=== PATIENT | male | born 1955 | race Caucasian/White ===

== ENCOUNTER 2018-09-13 17:22 | Inpatient (IN) | payer OTHER, SELFPAY ==
[2018-09-13] VITALS (12 sets, daily range): BP systolic 93–134; BP diastolic 46–84; PULSE 76–92; RESP 15–18; TEMP 36.5–37.1; O2SAT 93–100; BMI 34.8
--- NOTE | 2018-09-13 18:04 | EKG12_ITS ---
Test Reason : NAUSEA Blood Pressure : / mmHG Vent. Rate : 087 BPM Atrial Rate : 087 BPM P-R Int : 000 ms QRS Dur : 076 ms QT Int : 360 ms P-R-T Axes : 000 058 -31 degrees QTc Int : 433 ms Accelerated Junctional rhythm Nonspecific ST and T wave abnormality Abnormal ECG Confirmed by INGRID LONG, BRITTANEY ([id number]), newspaper editor managing BETH LUCIANO ([id number]) on 09/17/2018 1:34:13 PM Referred By: VASILIY Confirmed By:BRITTANEY QUINTERO MD
[2018-09-13] MEDS: 0.9% Normal Saline 1,000 ML 1000 ML IV (18:09)
--- NOTE | 2018-09-13 18:12 | RAD_ITS ---
STUDY: X-RAY CHEST REASON FOR EXAM: Male, 63 years old. Nausea and vomiting TECHNIQUE: AP COMPARISON: None. FINDINGS: Parenchymal opacity in the left infrahilar lung partially obscures the left heart border. Right hemidiaphragm is elevated. There is no demonstrated pleural abnormality. Normal size heart. Normal mediastinum and ellie. Normal visualized pulmonary arteries. There is atherosclerotic tortuosity of the aortic arch and descending thoracic aorta. There is fusion hardware of the thoracolumbar spine. Normal visualized ribs, clavicles, and shoulders. There is no demonstrated abnormality of the visualized soft tissue structures of the upper abdomen. RAD/Chest 1 View (Portable) IMPRESSION: 1. Left perihilar opacity may represent early pneumonia. Electronically Signed: Claudio Guzmán MD at 19:01 EST , Service support ,
[2018-09-13 18:29] LABS: Absolute Lymphocyte Count 2.89 X10^3/ul (0.83-4.51); Absolute Neutrophil Count 0.4 X10^3/uL (2.0-7.7); Basophil# 0.01 X10^3/uL; Basophil% 0.3 % (0-1); Lymphocyte # 2.89 X10^3/ul (4.0); Lymphocyte % 86.8 % (19-41); Mean Corp Hgb Conc 32.9 g/gl (32-36); Mean Corpuscular Hgb 36.8 pg (27.0-32.0); Mean Platelet Vol. 9.7 fl (6.2-12.0); Monocyte# 0.01 X10^3/uL; Monocyte% 0.3 % (0-10); Neutrophil # 0.41 X10^3/uL (2.7-7.7); Neutrophil % 12.3 % (47-70); Platelet Count 48 K/mm3 (150-450); RBC Distribution Width CV 16.3 % (11.6-14.6); RBC Distribution Width SD 65.6 fl (35.1-43.9); Red Blood Count 1.25 M/mm3 (4.6-6.2); White Blood Count 3.3 K/mm3 (4.4-11.0)
[2018-09-13 18:31] LABS: Differential Indicated SCAN CRITERIA MET; Hemoglobin 4.6 g/dl (13.0-16.5); POSITIVE COUNT YES; POSITIVE DIFFERENTIAL YES; POSITIVE MORPHOLOGY YES
--- NOTE | 2018-09-13 18:32 | ED.RN ---
LAB RESULTED PLATELETS 48, HGB 4.6, PHYSICIAN NOTIFIED
[2018-09-13 18:38] LABS: Anion Gap 9 (5-15); BUN 27 mg/dL (7-18); BUN/Creat Ratio 19.4 RATIO (10-20); Calcium,Total 8.3 mg/dL (8.5-10.1); Chloride 101 mmol/L (98-107); Creatinine, Serum 1.39 mg/dL (0.70-1.30); EST Glomerular Filtration Rate 55 mL/min (>60); Est Glom Filt Rate - Afr Amer 66 mL/min (>60); Estimated Creatinine Clearance 55.44 ml/min; Glucose 164 mg/dL (74-106); Potassium 4.2 mmol/L (3.5-5.1); Sodium Level 137 mmol/L (136-145)
[2018-09-13 19:14] LABS: Anisocytosis 2+; Atypical Lymphocyte 1+ %; Macrocytosis 2+; Reactive Lymphocyte 1+
[2018-09-13 19:15] LABS: Polychromasia 1+
[2018-09-13 19:16] LABS: Differential Comment SCANNED
[2018-09-13 19:23] LABS: International Normalized Ratio 1.3; Prothrombin Time (Protime)PT. 16.1 SECONDS (11.7-14.9)
[2018-09-13 19:24] LABS: Partial Thromboplast Time 31.4 Seconds (24.1-36.2)
--- NOTE | 2018-09-13 21:38 | CT_ITS ---
STUDY: CT CHEST WITH CONTRAST REASON FOR EXAM: Male, 63 years old. Shortness of breath. Abnormal chest radiograph. RADIATION DOSAGE (If Supplied By Facility): CTDIvol = ( 15.02 ) mGy, DLP = ( 662.01 ) mGycm TECHNIQUE: Transaxial imaging was performed following intravenous administration of 100ml ml of Isovue 300 contrast material. Multiplanar coronal and sagittal images were reformatted. Individualized dose optimization techniques were used for this CT. COMPARISON: None. FINDINGS: There is elevation of the right hemidiaphragm. There is consolidation within the right lower lobe. There are scattered groundglass opacities. Within the right upper lobe there is a 4.6 mm partially groundglass nodule. There are calcifications of the coronary arteries. Normal mediastinum. Normal hilar regions. Normal enhanced pulmonary arteries. Normal aorta arch and descending thoracic aorta. There are pedicle screws within the lower thoracic spine. The limited images of the upper abdomen demonstrate a diffusely low in attenuation liver. CT/Chest WITH Contrast IMPRESSION: Right lower lobe consolidation likely secondary to underlying atelectasis and possible pneumonia. Bilateral groundglass opacities, a nonspecific finding may be secondary to underlying edema. Atherosclerosis. Fatty infiltration of the liver. Electronically Signed: Laura Georges MD at 23:31 EST Tel , Service support ,
--- NOTE | 2018-09-13 23:42 | PCM.HP.STD ---
History of Present Illness Date of Admission: 09/14/18 Chief Complaint: shortness of breath, generalised fatigue The patient is a 63 year old M with a PMH of colon polyps who was admitted on 09/13/18 with a complaint of shortness of breath and weakness. Symptoms have been going on for about a week and was not improving so he decided coming to the ED as he could not even go to work today. He denied any fever or chills and only complained of occasional cough which is nonproductive. He denied any chest pain, palpitations, dizziness, abdominal pain, diarrhea or vomiting. Of note, patient admits that he is at a 23 pound weight loss over the past 3 weeks as he says he used to weigh 265 pounds and today his weight was checked and was 242 pounds. He does also feel like he has lost some weight. He denies having any melena stools, but does admit to difficulty with urination. Patient states he had a polyp in his colon about 20 years ago and had a colonoscopy done and was removed. As far as he could tell he was benign. He had this 3 colonoscopy subsequently the last one being about 2 years ago which was performed in [place] and was negative. He has a family history of colon cancer in his mother who was diagnosed when she was 86. 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 Of note, patient states he had routine blood work done about 6 months ago which showed deranged liver enzymes. He was seen by liver specialist [facility] and states a biopsy was done which showed nonalcoholic fatty liver disease. In the ED, vitals were stable. Chemistry was significant for creatinine of 1.39, calcium of 8.3 and troponin of 0.056 with no baseline available. CBC showed white cell count of 3.3 hemoglobin of 4.6 as well as platelet count of 48 with no baseline available. Chest x-ray done showed left perihilar opacity which may represent early pneumonia. Chest CT done showed right lower lobe consolidation likely secondary to underlying atelectasis and possible pneumonia and bilateral groundglass opacities which may be due to underlying pneumonia. Within the right upper lobe there was a 4.6 mm partially groundglass nodule. Per earlier discussions with ED doctor, I suggested that patient should be transferred to a tertiary center o/a of his profound anemia, and pancytopenia. Per ED doctor, [facility] refused to accept patient. No attempts made per my knowledge by ED to contact any other facilities for transfer. Patient also preferred to stay in [facility]. He is been admitted to be managed for pancytopenia with associated weight loss to rule out malignancy. [] Past Medical History Allergies morphine Adverse Reaction (Verified 09/13/18 17:24) Other Home Medications: Ambulatory Orders Medication Instructions Recorded Allopurinol 300 mg PO DAILY 09/13/18 Metoprolol Tartrate [Lopressor 25 mg PO DAILY 09/13/18 (beta glen)] Surgical History: - - back surgery and knee surgery Psychiatric History: No pertinent psych hx Lives: Spouse/ Significant Other Smoking Status: Former smoker - quit 40 years ago Alcohol: Occasional Drugs: None - *Family History Maternal History Items: Cancer - colon cancer in mother at age 86 Paternal History Items: No pertinent history Review of Systems Constitutional: Reports: Weight Change - weight loss. Denies: Chills, Fever Eyes: Reports: Blurred vision HEENT: Denies: Head Aches, Sinus Congestion, Sinus Drainage Cardiovascular: Denies: Chest Pain, Palpitations Respiratory: Denies: Cough, Shortness of breath at rest, Sputum production Gastrointestinal: Denies: Abdominal Pain, Nausea, Vomiting Genitourinary: Reports: - - difficulty with urination. Denies: Dysuria Musculoskeletal: Denies: Joint Pain, Joint Tenderness Skin: Denies: Rash, Wounds Neurological: Denies: Numbness, Tingling, Focal weakness Psychiatric: Denies: Anxiety, Depression, Homicidal Ideations, Suicidal Ideations Hematologic/ Lymphatic: Denies: Easy Bruising, Easy Bleeding VTE Information - Inpt Only VTE Present on Admission: No VTE Mechan Device Prophylaxis: SCD's VTE Pharm Prophylaxis ordered?: Yes Reason prophylaxis not ordered:: Medical Contraindication - thrombocytopenia - Physical Exam General: Alert, Oriented x3, Cooperative, No apparent distress HEENT: Atraumatic, PERRLA, EOMI, Normocephalic Oral: Moist Mucosa Neck: Supple, No JVD, Negative Carotid Bruits Lungs: Clear to auscultation, - - decreased breath sounds bibasally. coarse crackles in right lower lung field Cardiovascular: Regular rate, Regular Rhythm, Normal S1, Normal S2, No murmurs Abdomen: Bowel Sounds Present, Soft, Non Tender Extremities: No clubbing, No cyanosis, No edema, Capillary Refill Less than 3 Seconds Skin: No rashes, No breakdown Musculoskeletal: No Tenderness to Palpation of Joints or Extremities Lymphatic: No Cervical, Supraclavicular, or Inguinal Adenopathy Neurological: Cranial nerves II-XII grossly intact, Neuro grossly intact, Motor Exam 5/5 strength throughout Psych/Mental Status: Normal Affect, Appropriate, Alert and oriented to time, place, person, mood and affect Vital Signs Temp Pulse Resp BP Pulse Ox 98.1 F 80 15 119/79 99 09/13/18 23:09 09/13/18 23:09 09/13/18 23:09 09/13/18 23:09 09/13/18 23:09 Oxygen Flow Rate (L/min) 2 Oxygen Delivery Method Nasal Cannula Weight: 242 lb 12.8 oz Body Mass Index (BMI) 34.8 Intake and Output for Last 24 Hours 09/11/18 09/12/18 09/13/18 23:59 23:59 23:59 Intake Total 800 / 800 Balance 800 / 800 Microbiology Past 72 Hours 09/13/18 19:00 Stool Occult Blood (ADA) - Final Stool Laboratory Tests Past 24 Hrs 09/13/18 09/13/18 09/13/18 18:12 18:12 18:55 WBC 3.3 L RBC 1.25 L Hgb 4.6 L* Hct 14.0 L MCV 112.0 H MCH 36.8 H MCHC 32.9 RDW 16.3 H RDW Differential 65.6 H Plt Count 48 L* MPV 9.7 Immature Gran % (Auto) 0.300 Neut % (Auto) 12.3 L Lymph % (Auto) 86.8 H [place] % (Auto) 0.3 Eos % (Auto) 0.0 Baso % (Auto) 0.3 Absolute Neuts (auto) 0.4 L Absolute Lymphs (auto) 2.89 Total Counted Not Reportable Differential Comment SCANNED Diff Path Review May foll Atypical Lymphocytes 1+ Reactive Lymphocytes 1+ Polychromasia 1+ Anisocytosis 2+ Macrocytosis 2+ PT 16.1 H INR 1.3 APTT 31.4 Sodium 137 Potassium 4.2 Chloride 101 Carbon Dioxide 27.0 Anion Gap 9 BUN 27 H Creatinine 1.39 H Estim Creat Clear Calc 55.44 Est GFR (MDRD) Af Amer 66 Est GFR (MDRD) Non-Af 55 L BUN/Creatinine Ratio 19.4 Glucose 164 H Calcium 8.3 L Troponin I 0.056 H Blood Type Antibody Screen Crossmatch 09/13/18 18:55 WBC RBC Hgb Hct MCV MCH MCHC RDW RDW Differential Plt Count MPV Immature Gran % (Auto) Neut % (Auto) Lymph % (Auto) [place] % (Auto) Eos % (Auto) Baso % (Auto) Absolute Neuts (auto) Absolute Lymphs (auto) Total Counted Differential Comment Diff Path Review Atypical Lymphocytes Reactive Lymphocytes Polychromasia Anisocytosis Macrocytosis PT INR APTT Sodium Potassium Chloride Carbon Dioxide Anion Gap BUN Creatinine Estim Creat Clear Calc Est GFR (MDRD) Af Amer Est GFR (MDRD) Non-Af BUN/Creatinine Ratio Glucose Calcium Troponin I Blood Type A NEGATIVE Antibody Screen NEGATIVE Crossmatch See Detail Diagnostic Data Chest X-Ray 09/13/18 18:12 IMPRESSION: 1. Left perihilar opacity may represent early pneumonia. Electronically Signed: Claudio Guzmán MD at 19:01 EST , Service support , Chest CT 09/13/18 21:38 IMPRESSION: Right lower lobe consolidation likely secondary to underlying atelectasis and possible pneumonia. Bilateral groundglass opacities, a nonspecific finding may be secondary to underlying edema. Atherosclerosis. Fatty infiltration of the liver. Electronically Signed: Laura Georges MD at 23:31 EST Tel , Service support , Assessment/Plan 63 y/o admitted with a complaint of generalised fatigue 1. Pancytopenia of unclear etiology due to malignancy vs myelodysplastic disease vs liver disease Hemoglobin was 4.6 and white cell count is 3.3 with platelets of 48. Is a microcytic normochromic anemia. baseline Hb from [facility] was 13.8, from 02/26/18; platelets was 129 and wbc was 2.7. therefore leucopenia nd thrombocytopenia are chronic. thrombocytopenia has worsened, and anemia is relatively new INR was 1.3 Patient currently being transfused 2 units of packed red blood cells in the ED at time of review. check liver enzymes and PSA consult hematology/oncology check fecal occult blood and consult general surgery in light of patient's previous history of polyps and history of colon cancer in mother no records of previous colonoscopy could be accessed in [facility]. will request medical records for colonoscopy will check iron panel. Iron panel done in 12/27 showed elevated ferritin 2. CHING was diagnosed per liver biopsy last year; per [facility] [place] records, was diagnosed with hepatic fibrosis via fibroscan liver enzymes from February 2018 wre AST/ALT- 61/68 and total bilirubin of 1.5 (high), Direct bilirubin of 0.35(high) and indirect dorian of 1.2 will check liver enzymes 3. Thrombocytopenia: as under 1. Will hold off on transfusing platelets now pending hematology evaluation 3. ?TAMANNA: Cr is 1.39. Baseline not known. Will hydrate with IVF and monitor 4. DVT prophylaxis: SCDs Code Visit Inpatient E&M: 41226 Init Hosp L3
--- NOTE | 2018-09-13 23:44 | ED.VISSUMM ---
- ER Visit Summary Date of Service: 09/13/18 Chief Complaint: Fatigue History of Present Illness: The patient is a 63 M with generalized fatigue that has been increasing over several days. He thinks he might be dehydrated. He has been nauseated and vomiting. He has decreased oral intake and increasing sleep. He said he never felt this way before. He denies any abdominal pain or diarrhea. Denies fevers. Denies chest pain. He does have mild shortness of breath at times. No cough or sputum. He reports a history of hypertension as well as bilateral knee surgery and back surgery. Non-smoker. Physical Examination: Afebrile and vital signs unremarkable. 93% on room air. Alert and oriented. No acute distress. He is sitting, moving, speaking comfortably. Skin is pale and dry. Heart regular rate and rhythm. Lungs clear. Abdomen soft and nontender. Test Results: EKG showed what appears to be a junctional rhythm at a rate of 87. There are some lateral ST wave depressions. No elevations. White count 3.3, hemoglobin 4.6, platelets 48. Subsequent Hemoccult testing was negative. Coags were unremarkable. Glucose 164, BUN 27, creatinine 1.39. Troponin 0 0.056. Initial chest x-ray was concerning for left perihilar opacity, possibly pneumonia. Emergency Department Course and Treatment: Patient presents with nausea and vomiting. He is also pale and fatigued. His EKG showed nonspecific changes. He was kept on a monitor. His troponin was indeterminate. He was denying chest pain. His CBC showed pancytopenia. I did check a fecal occult test and it was negative. Coags were normal. Type and cross was done and I ordered 2 units of packed red cells. He was not having any bleeding historically or on exam. He has no history of anemia or pancytopenia. Denies any history of cancer or bone marrow disease. Metabolic panel unremarkable. Chest x-ray was read as possible pneumonia, but he had no cough, fevers, or sputum. I called the hospitalist to admit for further inpatient care. The hospitalist felt that the patient would be better served at a tertiary care center as we did not have a source for possible malignancy and he may need surgery or other procedures not available here. I spoke with the patient and subsequently called [facility]. I spoke with Dr. Aldrich. He did not feel that the transfer was safe or appropriate. He felt that the patient will be better suited for a medical evaluation and further stabilization here and would not be a surgical candidate at this point anyway. He declined the transfer. I did contact our hospitalist here. I had subsequently ordered a chest CT to see if the perihilar opacity was malignancy. This showed a right lower lobe consolidation likely secondary to atelectasis or possible pneumonia. Again, I do not believe the patient has pneumonia. He has no cough, fevers, sputum. The CT also showed bilateral groundglass opacities, atherosclerosis, and fatty infiltration of the liver. Upon further reevaluation, the patient is stable. Denies chest pain. Denies shortness of breath. Denies any new or worsening symptoms. He would still like to stay at this facility for further care. Hospitalist will evaluate. Treatment Plan: As above Disposition: Admission Impression: 1. Pancytopenia 2. Elevated troponin This note was generated with [employer] dictation software. It may contain incorrect words, spelling, and punctuation that were not noted in review of the chart prior to signing ED Disposition - Plan for ED Patient: Referrals: Shanti Hanson [Primary Care Provider] -
[2018-09-14] VITALS (12 sets, daily range): BP systolic 100–129; BP diastolic 52–74; PULSE 76–105; RESP 15–16; TEMP 36.7–37.2; O2SAT 96–100; BMI 35.3
[2018-09-14 02:25] LABS: AST(SGOT) 28 U/L (15-37); Alanine Aminotransfer ALT/SGPT 24 U/L (16-61); Albumin, Serum 2.9 g/dL (3.2-5.0); Alkaline Phosphatase 72 U/L (45-117); Globulin 4.1 g/dL (2.2-4.2)
[2018-09-14 02:36] LABS: Bilirubin, Direct 0.64 mg/dL (0.00-0.30)
[2018-09-14 04:14] LABS: Ferritin 1385 ng/mL (26-388); Iron 257 ug/dL (65-175); Iron Binding Capacity,Total 275 ug/dL (250-450); PERCENT IRON SATURATION 93.5 % (15.0-55.0)
[2018-09-14 04:53] LABS: ALB/GLOB Ratio 0.7 RATIO (0.9-2.4); AST(SGOT) 26 U/L (15-37); Alanine Aminotransfer ALT/SGPT 23 U/L (16-61); Albumin, Serum 2.9 g/dL (3.2-5.0); Alkaline Phosphatase 70 U/L (45-117); Anion Gap 10 (5-15); BUN 24 mg/dL (7-18); BUN/Creat Ratio 22.6 RATIO (10-20); Calcium,Total 7.8 mg/dL (8.5-10.1); Chloride 104 mmol/L (98-107); Creatinine, Serum 1.06 mg/dL (0.70-1.30); EST Glomerular Filtration Rate 75 mL/min (>60); Est Glom Filt Rate - Afr Amer 90 mL/min (>60); Estimated Creatinine Clearance 72.69 ml/min; Glucose 120 mg/dL (74-106); Potassium 4.3 mmol/L (3.5-5.1); Protein, Total 6.9 g/dL (6.4-8.2); Sodium Level 139 mmol/L (136-145)
[2018-09-14 06:42] LABS: Basophil# 0.02 X10^3/uL; Hematocrit 16.2 % (40-54); Mean Corp Hgb Conc 34.6 g/gl (32-36); Mean Corpuscular Hgb 36.8 pg (27.0-32.0); Mean Corpuscular Volume 106.6 fL (80-94); Mean Platelet Vol. 10.4 fl (6.2-12.0); Monocyte# 1.13 X10^3/uL; Red Blood Count 1.52 M/mm3 (4.6-6.2)
[2018-09-14 06:48] LABS: Hemoglobin 5.6 g/dl (13.0-16.5)
[2018-09-14 06:49] LABS: Differential Indicated SCAN CRITERIA MET; POSITIVE COUNT YES; POSITIVE DIFFERENTIAL YES; POSITIVE MORPHOLOGY YES; Platelet Count 42 K/mm3 (150-450)
[2018-09-14 07:37] LABS: Scan Smear per Review Criteria MANUAL DIFF
--- NOTE | 2018-09-14 08:38 | PCM.CONS.GEN ---
Reason for Consult Date of Consultation: 09/14/18 History of Present Illness: The patient is a 63 year old M presented to the ER due to dehydration, fatigue, decreased appetite. Patient states he has not eaten any food since he has not felt hungry. Patient states that on last Saturday he did vomit once. Otherwise he denies any nausea or vomiting or abdominal pain. He states that since July he has had decreased appetite, fatigue and also a weight loss of 23 pounds. Patient's last bowel movement with Brown, denies any bright red blood or tarry stools. Patient's last colonoscopy was 2 years ago done in [place] was negative per the patient. He has had a colonoscopy every 5 years. His mother was diagnosed with colon cancer 2 years ago at age 86. Patient was also diagnosed with fatty liver last summer. Patient had a biopsy done and actually showed fatty liver per the patient, patient only had occasional alcohol intake may be a beer every couple weeks but has not had any alcohol for several months. And no history of any heavy use. Patient denies any reflux symptoms. Currently he does state that he feels a little bit hungry. Patient's labs did show a hemoglobin of 4.6 on admit along with platelets of 42, labs from this morning have a hemoglobin of 5.6 after getting 2 units of packed red blood cells along with the continued thrombocytopenia, patient also has blast cells on morning differential. Consulted for possible endoscopy due to anemia. Heme/oncology was also consulted. Past Medical History Allergies morphine Adverse Reaction (Verified 09/13/18 17:24) Other Home Medications: Ambulatory Orders Medication Instructions Recorded Allopurinol 300 mg PO DAILY 09/13/18 Metoprolol Tartrate [Lopressor 25 mg PO DAILY 09/13/18 (beta glen)] Surgical History: cholecystectomy, total knee arthroplasty, - - back surgery and lateral knee surgery Psychiatric History: No pertinent psych hx Lives: Spouse/ Significant Other Smoking Status: Former smoker - quit 40 years ago Alcohol: Occasional - Denies any for the past few weeks, previous history was only occasional maybe 1 beer every few weeks Drugs: None - *Family History Maternal History Items: Cancer - colon cancer in mother at age 86 Paternal History Items: No pertinent history Review of Systems Constitutional: Denies: Fever HEENT: Denies: Difficulty Swallowing Cardiovascular: Denies: Chest Pain Respiratory: Reports: Shortness of Breath - Initially on admit Gastrointestinal: Denies: Abdominal Pain, Hematochezia, Nausea, Melena, Vomiting Genitourinary: Denies: Dysuria Skin: Denies: Jaundice Psychiatric: Denies: Anxiety, Depression Hematologic/ Lymphatic: Denies: Easy Bruising, Easy Bleeding - Physical Exam General: Alert, Oriented x3, Cooperative, No apparent distress HEENT: Atraumatic Lungs: Normal air movement Cardiovascular: Regular rate Abdomen: Soft, Non Tender - , No peritoneal signs, Non-Distended Extremities: No clubbing, No cyanosis, No edema Neurological: Cranial nerves II-XII grossly intact Psych/Mental Status: Normal Affect Vital Signs Temp Pulse Resp BP Pulse Ox 99.0 F 84 16 121/65 H 96 09/14/18 08:15 09/14/18 08:15 09/14/18 08:15 09/14/18 08:15 09/14/18 08:15 Oxygen Flow Rate (L/min) 2 Oxygen Delivery Method Room Air Weight: 246 lb 4.101 oz Body Mass Index (BMI) 35.3 Intake and Output for Last 24 Hours 09/12/18 09/13/18 09/14/18 23:59 23:59 23:59 Intake Total 800 / 800 668 / 668 Output Total 150 / 150 Balance 800 / 800 518 / 518 Microbiology Past 72 Hours 09/13/18 19:00 Stool Occult Blood (ADA) - Final Stool Laboratory Tests Past 24 Hrs 09/13/18 09/13/18 09/13/18 18:12 18:12 18:12 WBC 3.3 L Corrected WBC RBC 1.25 L Hgb 4.6 L* Hct 14.0 L MCV 112.0 H MCH 36.8 H MCHC 32.9 RDW 16.3 H RDW Differential 65.6 H Plt Count 48 L* MPV 9.7 Immature Gran % (Auto) 0.300 Neut % (Auto) 12.3 L Lymph % (Auto) 86.8 H [place] % (Auto) 0.3 Eos % (Auto) 0.0 Baso % (Auto) 0.3 Absolute Neuts (auto) 0.4 L Absolute Lymphs (auto) 2.89 Total Counted Not Reportable Neutrophils % (Manual) Band Neutrophils % Lymphocytes % (Manual) Monocytes % (Manual) Eosinophils % (Manual) Basophils % (Manual) Metamyelocytes % Myelocytes % Promyelocytes % Blast Cells % Plasma Cell % (Manual) Other Cells % Nucleated RBCs/100 WBC Differential Comment SCANNED Diff Path Review May foll Hypersegmented Neuts Atypical Lymphocytes 1+ Reactive Lymphocytes 1+ Smudge Cells Toxic Granulation Dohle Bodies Iesha Rods Platelet Estimate Plt Morphology Comment RBC Morphology Polychromasia 1+ Hypochromasia Poikilocytosis Basophilic Stippling Anisocytosis 2+ Microcytosis Macrocytosis 2+ Spherocytes Sickle Cells Target Cells Tear Drop Cells Ovalocytes Stomatocytes Herrera-[place] Bodies Charli Cells Bite Cells Acanthocytes (Spur) Rouleaux Schistocytes PT INR APTT Sodium 137 Potassium 4.2 Chloride 101 Carbon Dioxide 27.0 Anion Gap 9 BUN 27 H Creatinine 1.39 H Estim Creat Clear Calc 55.44 Est GFR (MDRD) Af Amer 66 Est GFR (MDRD) Non-Af 55 L BUN/Creatinine Ratio 19.4 Glucose 164 H Calcium 8.3 L Iron 257 H TIBC 275 Iron Saturation 93.5 H Ferritin 1385 H Total Bilirubin Direct Bilirubin AST ALT Alkaline Phosphatase Troponin I 0.056 H Total Protein Albumin Globulin Albumin/Globulin Ratio Blood Type Antibody Screen Crossmatch 09/13/18 09/13/18 09/14/18 18:55 18:55 01:16 WBC Corrected WBC RBC Hgb Hct MCV MCH MCHC RDW RDW Differential Plt Count MPV Immature Gran % (Auto) Neut % (Auto) Lymph % (Auto) [place] % (Auto) Eos % (Auto) Baso % (Auto) Absolute Neuts (auto) Absolute Lymphs (auto) Total Counted Neutrophils % (Manual) Band Neutrophils % Lymphocytes % (Manual) Monocytes % (Manual) Eosinophils % (Manual) Basophils % (Manual) Metamyelocytes % Myelocytes % Promyelocytes % Blast Cells % Plasma Cell % (Manual) Other Cells % Nucleated RBCs/100 WBC Differential Comment Diff Path Review Hypersegmented Neuts Atypical Lymphocytes Reactive Lymphocytes Smudge Cells Toxic Granulation Dohle Bodies Iesha Rods Platelet Estimate Plt Morphology Comment RBC Morphology Polychromasia Hypochromasia Poikilocytosis Basophilic Stippling Anisocytosis Microcytosis Macrocytosis Spherocytes Sickle Cells Target Cells Tear Drop Cells Ovalocytes Stomatocytes Herrera[place] Bodies [place] Cells Bite Cells Acanthocytes (Spur) Rouleaux Schistocytes PT 16.1 H INR 1.3 APTT 31.4 Sodium Potassium Chloride Carbon Dioxide Anion Gap BUN Creatinine Estim Creat Clear Calc Est GFR (MDRD) Af Amer Est GFR (MDRD) Non-Af BUN/Creatinine Ratio Glucose Calcium Iron TIBC Iron Saturation Ferritin Total Bilirubin 1.80 H Direct Bilirubin 0.64 H AST 28 ALT 24 Alkaline Phosphatase 72 Troponin I Total Protein 7.0 Albumin 2.9 L Globulin 4.1 Albumin/Globulin Ratio Blood Type A NEGATIVE Antibody Screen NEGATIVE Crossmatch See Detail 09/14/18 09/14/18 09/14/18 01:16 04:14 04:14 WBC Cancelled Corrected WBC Cancelled RBC Cancelled Hgb Cancelled Hct Cancelled MCV Cancelled MCH Cancelled MCHC Cancelled RDW Cancelled RDW Differential Cancelled Plt Count Cancelled MPV Cancelled Immature Gran % (Auto) Cancelled Neut % (Auto) Cancelled Lymph % (Auto) Cancelled [place] % (Auto) Cancelled Eos % (Auto) Cancelled Baso % (Auto) Cancelled Absolute Neuts (auto) Cancelled Absolute Lymphs (auto) Cancelled Total Counted Cancelled Neutrophils % (Manual) Cancelled Band Neutrophils % Cancelled Lymphocytes % (Manual) Cancelled Monocytes % (Manual) Cancelled Eosinophils % (Manual) Cancelled Basophils % (Manual) Cancelled Metamyelocytes % Cancelled Myelocytes % Cancelled Promyelocytes % Cancelled Blast Cells % Cancelled Plasma Cell % (Manual) Cancelled Other Cells % Cancelled Nucleated RBCs/100 WBC Cancelled Differential Comment Cancelled Diff Path Review Cancelled Hypersegmented Neuts Cancelled Atypical Lymphocytes Cancelled Reactive Lymphocytes Cancelled Smudge Cells Cancelled Toxic Granulation Cancelled Dohle Bodies Cancelled Iesha Rods Cancelled Platelet Estimate Cancelled Plt Morphology Comment Cancelled RBC Morphology Cancelled Polychromasia Cancelled Hypochromasia Cancelled Poikilocytosis Cancelled Basophilic Stippling Cancelled Anisocytosis Cancelled Microcytosis Cancelled Macrocytosis Cancelled Spherocytes Cancelled Sickle Cells Cancelled Target Cells Cancelled Tear Drop Cells Cancelled Ovalocytes Cancelled Stomatocytes Cancelled [place]rera[place] Bodies Cancelled [place] Cells Cancelled Bite Cells Cancelled Acanthocytes (Spur) Cancelled Rouleaux Cancelled Schistocytes Cancelled PT INR APTT Sodium 139 Potassium 4.3 Chloride 104 Carbon Dioxide 25.0 Anion Gap 10 BUN 24 H Creatinine 1.06 Estim Creat Clear Calc 72.69 Est GFR (MDRD) Af Amer 90 Est GFR (MDRD) Non-Af 75 BUN/Creatinine Ratio 22.6 H Glucose 120 H Calcium 7.8 L Iron TIBC Iron Saturation Ferritin Total Bilirubin 2.10 H Direct Bilirubin AST 26 ALT 23 Alkaline Phosphatase 70 Troponin I 0.043 0.032 Total Protein 6.9 Albumin 2.9 L Globulin 4.0 Albumin/Globulin Ratio 0.7 L Blood Type Antibody Screen Crossmatch 09/14/18 05:50 WBC 3.0 L Corrected WBC RBC 1.52 L Hgb 5.6 L* Hct 16.2 L MCV 106.6 H MCH 36.8 H MCHC 34.6 RDW Not Reportable RDW Differential Not Reportable Plt Count 42 L* MPV 10.4 Immature Gran % (Auto) [employer] Neut % (Auto) [employer]ER Lymph % (Auto) [employer]ER [place] % (Auto) [employer]ER Eos % (Auto) [employer] WORKER Baso % (Auto) [employer]ER Absolute Neuts (auto) 0.2 L Absolute Lymphs (auto) 1.10 Total Counted 25 Neutrophils % (Manual) 4 L Band Neutrophils % 4 Lymphocytes % (Manual) 36 Monocytes % (Manual) 4 Eosinophils % (Manual) Basophils % (Manual) Metamyelocytes % 40 H Myelocytes % Promyelocytes % Blast Cells % 12 H* Plasma Cell % (Manual) Other Cells % Nucleated RBCs/100 WBC Differential Comment Diff Path Review May foll Hypersegmented Neuts Atypical Lymphocytes Reactive Lymphocytes Smudge Cells Toxic Granulation Dohle Bodies Iesha Rods Platelet Estimate Plt Morphology Comment RBC Morphology Polychromasia Hypochromasia Poikilocytosis Basophilic Stippling Anisocytosis Microcytosis Macrocytosis Spherocytes Sickle Cells Target Cells Tear Drop Cells Ovalocytes Stomatocytes Herrera-[place] Bodies [place] Cells Bite Cells Acanthocytes (Spur) Rouleaux Schistocytes PT INR APTT Sodium Potassium Chloride Carbon Dioxide Anion Gap BUN Creatinine Estim Creat Clear Calc Est GFR (MDRD) Af Amer Est GFR (MDRD) Non-Af BUN/Creatinine Ratio Glucose Calcium Iron TIBC Iron Saturation Ferritin Total Bilirubin Direct Bilirubin AST ALT Alkaline Phosphatase Troponin I Total Protein Albumin Globulin Albumin/Globulin Ratio Blood Type Antibody Screen Crossmatch Assessment/Plan 63-year-old male with pancytopenia, history of colon polyps last colonoscopy 2 years ago negative 1. Patient's recent colonoscopy was 2 years ago and he states he has a colonoscopy every 5 years. Per patient colonoscopy was -2 years ago obtain records. Patient denies any bright red blood or black tarry stools. Patient's fecal occult blood test was also negative. Discussed with patient that I do not think endoscopy is warranted currently as patient's pancytopenia likely has another etiology than just from a GI bleed and patient denies any blood per rectum and the fecal occult was negative. Patient also denies any symptoms of reflux or abdominal pain or nausea or vomiting. 2. Oncology/hematology consulted, await recommendations. Discussed with Dr. Pascula and she was agreeable to no endoscopies at this time and will let me know if anything changes. Richa Flanagan M.D. Pager: [phone] [facility] [address] [place] [address], [facility], [address] [place] [address] Office: [phone] Code Visit Inpatient E&M: 79850 Init Hosp L2
--- NOTE | 2018-09-14 08:43 | CON.PCM_ITS ---
Reason for Consult Date of Consultation: 09/14/18 History of Present Illness: The patient is a 63 year old M presented to the ER due to dehydration, fatigue, decreased appetite. Patient states he has not eaten any food since he has not felt hungry. Patient states that on last Saturday he did vomit once. Otherwise he denies any nausea or vomiting or abdominal pain. He states that since July he has had decreased appetite, fatigue and also a weight loss of 23 pounds. Patient's last bowel movement with Brown, denies any bright red blood or tarry stools. Patient's last colonoscopy was 2 years ago done in [place] was negative per the patient. He has had a colonoscopy every 5 years. His mother was diagnosed with colon cancer 2 years ago at age 86. Patient was also diagnosed with fatty liver last summer. Patient had a biopsy done and actually showed fatty liver per the patient, patient only had occasional alcohol intake may be a beer every couple weeks but has not had any alcohol for several months. And no history of any heavy use. Patient denies any reflux symptoms. Currently he does state that he feels a little bit hungry. Patient's labs did show a hemoglobin of 4.6 on admit along with platelets of 42, labs from this morning have a hemoglobin of 5.6 after getting 2 units of packed red blood cells along with the continued thrombocytopenia, patient also has blast cells on morning differential. Consulted for possible endoscopy due to anemia. Heme/oncology was also consulted. Past Medical History Allergies morphine Adverse Reaction (Verified 09/13/18 17:24) Other Home Medications: Ambulatory Orders Medication Instructions Recorded Allopurinol 300 mg PO DAILY 09/13/18 Metoprolol Tartrate [Lopressor 25 mg PO DAILY 09/13/18 (beta glen)] Surgical History: cholecystectomy, total knee arthroplasty, - - back surgery and lateral knee surgery Psychiatric History: No pertinent psych hx Lives: Spouse/ Significant Other Smoking Status: Former smoker - quit 40 years ago Alcohol: Occasional - Denies any for the past few weeks, previous history was only occasional maybe 1 beer every few weeks Drugs: None - *Family History Maternal History Items: Cancer - colon cancer in mother at age 86 Paternal History Items: No pertinent history Review of Systems Constitutional: Denies: Fever HEENT: Denies: Difficulty Swallowing Cardiovascular: Denies: Chest Pain Respiratory: Reports: Shortness of Breath - Initially on admit Gastrointestinal: Denies: Abdominal Pain, Hematochezia, Nausea, Melena, Vomiting Genitourinary: Denies: Dysuria Skin: Denies: Jaundice Psychiatric: Denies: Anxiety, Depression Hematologic/ Lymphatic: Denies: Easy Bruising, Easy Bleeding - Physical Exam General: Alert, Oriented x3, Cooperative, No apparent distress HEENT: Atraumatic Lungs: Normal air movement Cardiovascular: Regular rate Abdomen: Soft, Non Tender - , No peritoneal signs, Non-Distended Extremities: No clubbing, No cyanosis, No edema Neurological: Cranial nerves II-XII grossly intact Psych/Mental Status: Normal Affect Vital Signs Temp Pulse Resp BP Pulse Ox 99.0 F 84 16 121/65 H 96 09/14/18 08:15 09/14/18 08:15 09/14/18 08:15 09/14/18 08:15 09/14/18 08:15 Oxygen Flow Rate (L/min) 2 Oxygen Delivery Method Room Air Weight: 246 lb 4.101 oz Body Mass Index (BMI) 35.3 Intake and Output for Last 24 Hours 09/12/18 09/13/18 09/14/18 23:59 23:59 23:59 Intake Total 800 / 800 668 / 668 Output Total 150 / 150 Balance 800 / 800 518 / 518 Microbiology Past 72 Hours 09/13/18 19:00 Stool Occult Blood (ADA) - Final Stool Laboratory Tests Past 24 Hrs 09/13/18 09/13/18 09/13/18 18:12 18:12 18:12 WBC 3.3 L Corrected WBC RBC 1.25 L Hgb 4.6 L* Hct 14.0 L MCV 112.0 H MCH 36.8 H MCHC 32.9 RDW 16.3 H RDW Differential 65.6 H Plt Count 48 L* MPV 9.7 Immature Gran % (Auto) 0.300 Neut % (Auto) 12.3 L Lymph % (Auto) 86.8 H [place] % (Auto) 0.3 Eos % (Auto) 0.0 Baso % (Auto) 0.3 Absolute Neuts (auto) 0.4 L Absolute Lymphs (auto) 2.89 Total Counted Not Reportable Neutrophils % (Manual) Band Neutrophils % Lymphocytes % (Manual) Monocytes % (Manual) Eosinophils % (Manual) Basophils % (Manual) Metamyelocytes % Myelocytes % Promyelocytes % Blast Cells % Plasma Cell % (Manual) Other Cells % Nucleated RBCs/100 WBC Differential Comment SCANNED Diff Path Review May foll Hypersegmented Neuts Atypical Lymphocytes 1+ Reactive Lymphocytes 1+ Smudge Cells Toxic Granulation Dohle Bodies Iesha Rods Platelet Estimate Plt Morphology Comment RBC Morphology Polychromasia 1+ Hypochromasia Poikilocytosis Basophilic Stippling Anisocytosis 2+ Microcytosis Macrocytosis 2+ Spherocytes Sickle Cells Target Cells Tear Drop Cells Ovalocytes Stomatocytes Herrera-[place] Bodies Charli Cells Bite Cells Acanthocytes (Spur) Rouleaux Schistocytes PT INR APTT Sodium 137 Potassium 4.2 Chloride 101 Carbon Dioxide 27.0 Anion Gap 9 BUN 27 H Creatinine 1.39 H Estim Creat Clear Calc 55.44 Est GFR (MDRD) Af Amer 66 Est GFR (MDRD) Non-Af 55 L BUN/Creatinine Ratio 19.4 Glucose 164 H Calcium 8.3 L Iron 257 H TIBC 275 Iron Saturation 93.5 H Ferritin 1385 H Total Bilirubin Direct Bilirubin AST ALT Alkaline Phosphatase Troponin I 0.056 H Total Protein Albumin Globulin Albumin/Globulin Ratio Blood Type Antibody Screen Crossmatch 09/13/18 09/13/18 09/14/18 18:55 18:55 01:16 WBC Corrected WBC RBC Hgb Hct MCV MCH MCHC RDW RDW Differential Plt Count MPV Immature Gran % (Auto) Neut % (Auto) Lymph % (Auto) [place] % (Auto) Eos % (Auto) Baso % (Auto) Absolute Neuts (auto) Absolute Lymphs (auto) Total Counted Neutrophils % (Manual) Band Neutrophils % Lymphocytes % (Manual) Monocytes % (Manual) Eosinophils % (Manual) Basophils % (Manual) Metamyelocytes % Myelocytes % Promyelocytes % Blast Cells % Plasma Cell % (Manual) Other Cells % Nucleated RBCs/100 WBC Differential Comment Diff Path Review Hypersegmented Neuts Atypical Lymphocytes Reactive Lymphocytes Smudge Cells Toxic Granulation Dohle Bodies Iesha Rods Platelet Estimate Plt Morphology Comment RBC Morphology Polychromasia Hypochromasia Poikilocytosis Basophilic Stippling Anisocytosis Microcytosis Macrocytosis Spherocytes Sickle Cells Target Cells Tear Drop Cells Ovalocytes Stomatocytes Herrera-[place] Bodies [place] Cells Bite Cells Acanthocytes (Spur) Rouleaux Schistocytes PT 16.1 H INR 1.3 APTT 31.4 Sodium Potassium Chloride Carbon Dioxide Anion Gap BUN Creatinine Estim Creat Clear Calc Est GFR (MDRD) Af Amer Est GFR (MDRD) Non-Af BUN/Creatinine Ratio Glucose Calcium Iron TIBC Iron Saturation Ferritin Total Bilirubin 1.80 H Direct Bilirubin 0.64 H AST 28 ALT 24 Alkaline Phosphatase 72 Troponin I Total Protein 7.0 Albumin 2.9 L Globulin 4.1 Albumin/Globulin Ratio Blood Type A NEGATIVE Antibody Screen NEGATIVE Crossmatch See Detail 09/14/18 09/14/18 09/14/18 01:16 04:14 04:14 WBC Cancelled Corrected WBC Cancelled RBC Cancelled Hgb Cancelled Hct Cancelled MCV Cancelled MCH Cancelled MCHC Cancelled RDW Cancelled RDW Differential Cancelled Plt Count Cancelled MPV Cancelled Immature Gran % (Auto) Cancelled Neut % (Auto) Cancelled Lymph % (Auto) Cancelled [place] % (Auto) Cancelled Eos % (Auto) Cancelled Baso % (Auto) Cancelled Absolute Neuts (auto) Cancelled Absolute Lymphs (auto) Cancelled Total Counted Cancelled Neutrophils % (Manual) Cancelled Band Neutrophils % Cancelled Lymphocytes % (Manual) Cancelled Monocytes % (Manual) Cancelled Eosinophils % (Manual) Cancelled Basophils % (Manual) Cancelled Metamyelocytes % Cancelled Myelocytes % Cancelled Promyelocytes % Cancelled Blast Cells % Cancelled Plasma Cell % (Manual) Cancelled Other Cells % Cancelled Nucleated RBCs/100 WBC Cancelled Differential Comment Cancelled Diff Path Review Cancelled Hypersegmented Neuts Cancelled Atypical Lymphocytes Cancelled Reactive Lymphocytes Cancelled Smudge Cells Cancelled Toxic Granulation Cancelled Dohle Bodies Cancelled Iesha Rods Cancelled Platelet Estimate Cancelled Plt Morphology Comment Cancelled RBC Morphology Cancelled Polychromasia Cancelled Hypochromasia Cancelled Poikilocytosis Cancelled Basophilic Stippling Cancelled Anisocytosis Cancelled Microcytosis Cancelled Macrocytosis Cancelled Spherocytes Cancelled Sickle Cells Cancelled Target Cells Cancelled Tear Drop Cells Cancelled Ovalocytes Cancelled Stomatocytes Cancelled Herrera-[place] Bodies Cancelled [place] Cells Cancelled Bite Cells Cancelled Acanthocytes (Spur) Cancelled Rouleaux Cancelled Schistocytes Cancelled PT INR APTT Sodium 139 Potassium 4.3 Chloride 104 Carbon Dioxide 25.0 Anion Gap 10 BUN 24 H Creatinine 1.06 Estim Creat Clear Calc 72.69 Est GFR (MDRD) Af Amer 90 Est GFR (MDRD) Non-Af 75 BUN/Creatinine Ratio 22.6 H Glucose 120 H Calcium 7.8 L Iron TIBC Iron Saturation Ferritin Total Bilirubin 2.10 H Direct Bilirubin AST 26 ALT 23 Alkaline Phosphatase 70 Troponin I 0.043 0.032 Total Protein 6.9 Albumin 2.9 L Globulin 4.0 Albumin/Globulin Ratio 0.7 L Blood Type Antibody Screen Crossmatch 09/14/18 05:50 WBC 3.0 L Corrected WBC RBC 1.52 L Hgb 5.6 L* Hct 16.2 L MCV 106.6 H MCH 36.8 H MCHC 34.6 RDW Not Reportable RDW Differential Not Reportable Plt Count 42 L* MPV 10.4 Immature Gran % (Auto) METAL ROASTER Neut % (Auto) METAL ROASTER Lymph % (Auto) METAL ROASTER [place] % (Auto) METAL ROASTER Eos % (Auto) METAL ROASTER Baso % (Auto) METAL ROASTER Absolute Neuts (auto) 0.2 L Absolute Lymphs (auto) 1.10 Total Counted 25 Neutrophils % (Manual) 4 L Band Neutrophils % 4 Lymphocytes % (Manual) 36 Monocytes % (Manual) 4 Eosinophils % (Manual) Basophils % (Manual) Metamyelocytes % 40 H Myelocytes % Promyelocytes % Blast Cells % 12 H* Plasma Cell % (Manual) Other Cells % Nucleated RBCs/100 WBC Differential Comment Diff Path Review May foll Hypersegmented Neuts Atypical Lymphocytes Reactive Lymphocytes Smudge Cells Toxic Granulation Dohle Bodies Iesha Rods Platelet Estimate Plt Morphology Comment RBC Morphology Polychromasia Hypochromasia Poikilocytosis Basophilic Stippling Anisocytosis Microcytosis Macrocytosis Spherocytes Sickle Cells Target Cells Tear Drop Cells Ovalocytes Stomatocytes Herrera-Standish Bodies [place] Cells Bite Cells Acanthocytes (Spur) Rouleaux Schistocytes PT INR APTT Sodium Potassium Chloride Carbon Dioxide Anion Gap BUN Creatinine Estim Creat Clear Calc Est GFR (MDRD) Af Amer Est GFR (MDRD) Non-Af BUN/Creatinine Ratio Glucose Calcium Iron TIBC Iron Saturation Ferritin Total Bilirubin Direct Bilirubin AST ALT Alkaline Phosphatase Troponin I Total Protein Albumin Globulin Albumin/Globulin Ratio Blood Type Antibody Screen Crossmatch Assessment/Plan 63-year-old male with pancytopenia, history of colon polyps last colonoscopy 2 years ago negative 1. Patient's recent colonoscopy was 2 years ago and he states he has a colonoscopy every 5 years. Per patient colonoscopy was -2 years ago obtain records. Patient denies any bright red blood or black tarry stools. Patient's fecal occult blood test was also negative. Discussed with patient that I do not think endoscopy is warranted currently as patient's pancytopenia likely has another etiology than just from a GI bleed and patient denies any blood per rectum and the fecal occult was negative. Patient also denies any symptoms of reflux or abdominal pain or nausea or vomiting. 2. Oncology/hematology consulted, await recommendations. Discussed with Dr. Pascual and she was agreeable to no endoscopies at this time and will let me know if anything changes. Richa Flanagan M.D. Pager: [phone] [facility] [address] [place] [address], [facility], [address] [place] [address] Office: [phone] Code Visit Inpatient E&M: 14250 Init Hosp L2
[2018-09-14 09:07] LABS: Immature Platelet Fraction 6.9 % (1.0-7.9); Reticulocyte Count 0.94 % (0.5-1.5)
[2018-09-14 09:28] LABS: Thyroid Stim Hormone (TSH) 0.88 uIU/mL (0.358-3.74); Uric Acid 5.4 mg/dL (3.5-7.2)
--- NOTE | 2018-09-14 09:55 | PCM.DC.SUM ---
Discharge Date and Diagnosis Date of Admission: 09/13/18 Date of Discharge: 09/14/18 - Primary Discharge Diagnosis Pancytopenia Suspected acute leukemia - Secondary Discharge Diagnosis Gout HTN Obesity Hospital Course and Treatment Imaging Results: Clinical Impression(s) from Imaging Studies Chest X-Ray 09/13/18 18:12 IMPRESSION: 1. Left perihilar opacity may represent early pneumonia. Electronically Signed: Claudio Guzmán MD at 19:01 EST , Service support , Chest CT 09/13/18 21:38 IMPRESSION: Right lower lobe consolidation likely secondary to underlying atelectasis and possible pneumonia. Bilateral groundglass opacities, a nonspecific finding may be secondary to underlying edema. Atherosclerosis. Fatty infiltration of the liver. Electronically Signed: Laura Georges MD at 23:31 EST Tel , Service support , Laboratory Tests 09/14/18 09/14/18 09/14/18 Range/Units 08:54 08:40 05:50 WBC 3.0 L (4.4-11.0) K/mm3 Corrected WBC RBC 1.52 L (4.6-6.2) M/mm3 Hgb 5.6 L* (13.0-16.5) g/dl Hct 16.2 L (40-54) % MCV 106.6 H (80-94) fL MCH 36.8 H (27.0-32.0) pg MCHC 34.6 (32-36) g/gl RDW Not Reportable (11.6-14.6) % RDW Differential Not Reportable (35.1-43.9) fl Plt Count 42 L* (150-450) K/mm3 MPV 10.4 (6.2-12.0) fl Immature Gran % (Auto) [employer] (0.0-0.9) % Neut % (Auto) [employer] (47-70) % Lymph % (Auto) [employer] (19-41) % Hendricks % (Auto) [employer]ICER (0-10) % Eos % (Auto) [employer]ICER (0-5) % Baso % (Auto) [employer] OFFICER (0-1) % Absolute Neuts (auto) 0.2 L (2.0-7.7) X10^3/uL Absolute Lymphs (auto) 1.10 (0.83-4.51) X10^3/ul Total Counted 25 Neutrophils % (Manual) 4 L Band Neutrophils % 4 Lymphocytes % (Manual) 36 Monocytes % (Manual) 4 Eosinophils % (Manual) Basophils % (Manual) Metamyelocytes % 40 H Myelocytes % Promyelocytes % Blast Cells % 12 H* Plasma Cell % (Manual) Other Cells % Nucleated RBCs/100 WBC Differential Comment Diff Path Review May foll Hypersegmented Neuts Atypical Lymphocytes % Reactive Lymphocytes Smudge Cells Toxic Granulation Dohle Bodies Iesha Rods Platelet Estimate Immature Plt Fraction 6.9 (1.0-7.9) % Plt Morphology Comment RBC Morphology Polychromasia Hypochromasia Poikilocytosis Basophilic Stippling Anisocytosis Microcytosis Macrocytosis Spherocytes Sickle Cells Target Cells Tear Drop Cells Ovalocytes Stomatocytes Herrera-Cazadero Bodies Dyer Cells Bite Cells Acanthocytes (Spur) Rouleaux Schistocytes Retic Count 0.94 (0.5-1.5) % Immature Retic Fraction 18.00 H (3.00-15.90) % Retic Hgb Equivalent 26.0 L (30-35) pg PT (11.7-14.9) SECONDS INR APTT (24.1-36.2) Seconds Sodium (136-145) mmol/L Potassium (3.5-5.1) mmol/L Chloride (98-107) mmol/L Carbon Dioxide (21.0-32.0) mmol/L Anion Gap (5-15) BUN (7-18) mg/dL Creatinine (0.70-1.30) mg/dL Estim Creat Clear Calc ml/min Est GFR (MDRD) Af Amer (>60) mL/min Est GFR (MDRD) Non-Af (>60) mL/min BUN/Creatinine Ratio (10-20) RATIO Glucose (74-106) mg/dL Uric Acid 5.4 (3.5-7.2) mg/dL Calcium (8.5-10.1) mg/dL Iron (65-175) ug/dL TIBC (250-450) ug/dL Iron Saturation (15.0-55.0) % Ferritin (26-388) ng/mL Total Bilirubin (0.20-1.00) mg/dL Direct Bilirubin (0.00-0.30) mg/dL AST (15-37) U/L ALT (16-61) U/L Alkaline Phosphatase (45-117) U/L Troponin I (<0.045) ng/mL Total Protein (6.4-8.2) g/dL Albumin (3.2-5.0) g/dL Globulin (2.2-4.2) g/dL Albumin/Globulin Ratio (0.9-2.4) RATIO Folate (3.1-55.4) ng/mL TSH 0.88 (0.358-3.74) uIU/mL Blood Type Antibody Screen Crossmatch 09/14/18 09/14/18 09/14/18 Range/Units 04:14 04:14 01:16 WBC Cancelled (4.4-11.0) K/mm3 Corrected WBC Cancelled RBC Cancelled (4.6-6.2) M/mm3 Hgb Cancelled (13.0-16.5) g/dl Hct Cancelled (40-54) % MCV Cancelled (80-94) fL MCH Cancelled (27.0-32.0) pg MCHC Cancelled (32-36) g/gl RDW Cancelled (11.6-14.6) % RDW Differential Cancelled (35.1-43.9) fl Plt Count Cancelled (150-450) K/mm3 MPV Cancelled (6.2-12.0) fl Immature Gran % (Auto) Cancelled (0.0-0.9) % Neut % (Auto) Cancelled (47-70) % Lymph % (Auto) Cancelled (19-41) % Hendricks % (Auto) Cancelled (0-10) % Eos % (Auto) Cancelled (0-5) % Baso % (Auto) Cancelled (0-1) % Absolute Neuts (auto) Cancelled (2.0-7.7) X10^3/uL Absolute Lymphs (auto) Cancelled (0.83-4.51) X10^3/ul Total Counted Cancelled Neutrophils % (Manual) Cancelled Band Neutrophils % Cancelled Lymphocytes % (Manual) Cancelled Monocytes % (Manual) Cancelled Eosinophils % (Manual) Cancelled Basophils % (Manual) Cancelled Metamyelocytes % Cancelled Myelocytes % Cancelled Promyelocytes % Cancelled Blast Cells % Cancelled Plasma Cell % (Manual) Cancelled Other Cells % Cancelled Nucleated RBCs/100 WBC Cancelled Differential Comment Cancelled Diff Path Review Cancelled Hypersegmented Neuts Cancelled Atypical Lymphocytes Cancelled % Reactive Lymphocytes Cancelled Smudge Cells Cancelled Toxic Granulation Cancelled Dohle Bodies Cancelled Iesha Rods Cancelled Platelet Estimate Cancelled Immature Plt Fraction (1.0-7.9) % Plt Morphology Comment Cancelled RBC Morphology Cancelled Polychromasia Cancelled Hypochromasia Cancelled Poikilocytosis Cancelled Basophilic Stippling Cancelled Anisocytosis Cancelled Microcytosis Cancelled Macrocytosis Cancelled Spherocytes Cancelled Sickle Cells Cancelled Target Cells Cancelled Tear Drop Cells Cancelled Ovalocytes Cancelled Stomatocytes Cancelled Herrera-Cazadero Bodies Cancelled Charli Cells Cancelled Bite Cells Cancelled Acanthocytes (Spur) Cancelled Rouleaux Cancelled Schistocytes Cancelled Retic Count (0.5-1.5) % Immature Retic Fraction (3.00-15.90) % Retic Hgb Equivalent (30-35) pg PT (11.7-14.9) SECONDS INR APTT (24.1-36.2) Seconds Sodium 139 (136-145) mmol/L Potassium 4.3 (3.5-5.1) mmol/L Chloride 104 (98-107) mmol/L Carbon Dioxide 25.0 (21.0-32.0) mmol/L Anion Gap 10 (5-15) BUN 24 H (7-18) mg/dL Creatinine 1.06 (0.70-1.30) mg/dL Estim Creat Clear Calc 72.69 ml/min Est GFR (MDRD) Af Amer 90 (>60) mL/min Est GFR (MDRD) Non-Af 75 (>60) mL/min BUN/Creatinine Ratio 22.6 H (10-20) RATIO Glucose 120 H (74-106) mg/dL Uric Acid (3.5-7.2) mg/dL Calcium 7.8 L (8.5-10.1) mg/dL Iron (65-175) ug/dL TIBC (250-450) ug/dL Iron Saturation (15.0-55.0) % Ferritin (26-388) ng/mL Total Bilirubin 2.10 H (0.20-1.00) mg/dL Direct Bilirubin (0.00-0.30) mg/dL AST 26 (15-37) U/L ALT 23 (16-61) U/L Alkaline Phosphatase 70 (45-117) U/L Troponin I 0.032 0.043 (<0.045) ng/mL Total Protein 6.9 (6.4-8.2) g/dL Albumin 2.9 L (3.2-5.0) g/dL Globulin 4.0 (2.2-4.2) g/dL Albumin/Globulin Ratio 0.7 L (0.9-2.4) RATIO Folate (3.1-55.4) ng/mL TSH (0.358-3.74) uIU/mL Blood Type Antibody Screen Crossmatch 09/14/18 09/13/18 09/13/18 Range/Units 01:16 18:55 18:55 WBC (4.4-11.0) K/mm3 Corrected WBC RBC (4.6-6.2) M/mm3 Hgb (13.0-16.5) g/dl Hct (40-54) % MCV (80-94) fL MCH (27.0-32.0) pg MCHC (32-36) g/gl RDW (11.6-14.6) % RDW Differential (35.1-43.9) fl Plt Count (150-450) K/mm3 MPV (6.2-12.0) fl Immature Gran % (Auto) (0.0-0.9) % Neut % (Auto) (47-70) % Lymph % (Auto) (19-41) % Hendricks % (Auto) (0-10) % Eos % (Auto) (0-5) % Baso % (Auto) (0-1) % Absolute Neuts (auto) (2.0-7.7) X10^3/uL Absolute Lymphs (auto) (0.83-4.51) X10^3/ul Total Counted Neutrophils % (Manual) Band Neutrophils % Lymphocytes % (Manual) Monocytes % (Manual) Eosinophils % (Manual) Basophils % (Manual) Metamyelocytes % Myelocytes % Promyelocytes % Blast Cells % Plasma Cell % (Manual) Other Cells % Nucleated RBCs/100 WBC Differential Comment Diff Path Review Hypersegmented Neuts Atypical Lymphocytes % Reactive Lymphocytes Smudge Cells Toxic Granulation Dohle Bodies Iesha Rods Platelet Estimate Immature Plt Fraction (1.0-7.9) % Plt Morphology Comment RBC Morphology Polychromasia Hypochromasia Poikilocytosis Basophilic Stippling Anisocytosis Microcytosis Macrocytosis Spherocytes Sickle Cells Target Cells Tear Drop Cells Ovalocytes Stomatocytes Herrera-Cazadero Bodies Charli Cells Bite Cells Acanthocytes (Spur) Rouleaux Schistocytes Retic Count (0.5-1.5) % Immature Retic Fraction (3.00-15.90) % Retic Hgb Equivalent (30-35) pg PT 16.1 H (11.7-14.9) SECONDS INR 1.3 APTT 31.4 (24.1-36.2) Seconds Sodium (136-145) mmol/L Potassium (3.5-5.1) mmol/L Chloride (98-107) mmol/L Carbon Dioxide (21.0-32.0) mmol/L Anion Gap (5-15) BUN (7-18) mg/dL Creatinine (0.70-1.30) mg/dL Estim Creat Clear Calc ml/min Est GFR (MDRD) Af Amer (>60) mL/min Est GFR (MDRD) Non-Af (>60) mL/min BUN/Creatinine Ratio (10-20) RATIO Glucose (74-106) mg/dL Uric Acid (3.5-7.2) mg/dL Calcium (8.5-10.1) mg/dL Iron (65-175) ug/dL TIBC (250-450) ug/dL Iron Saturation (15.0-55.0) % Ferritin (26-388) ng/mL Total Bilirubin 1.80 H (0.20-1.00) mg/dL Direct Bilirubin 0.64 H (0.00-0.30) mg/dL AST 28 (15-37) U/L ALT 24 (16-61) U/L Alkaline Phosphatase 72 (45-117) U/L Troponin I (<0.045) ng/mL Total Protein 7.0 (6.4-8.2) g/dL Albumin 2.9 L (3.2-5.0) g/dL Globulin 4.1 (2.2-4.2) g/dL Albumin/Globulin Ratio (0.9-2.4) RATIO Folate (3.1-55.4) ng/mL TSH (0.358-3.74) uIU/mL Blood Type A NEGATIVE Antibody Screen NEGATIVE Crossmatch See Detail 09/13/18 09/13/18 09/13/18 Range/Units 18:12 18:12 18:12 WBC (4.4-11.0) K/mm3 Corrected WBC RBC (4.6-6.2) M/mm3 Hgb (13.0-16.5) g/dl Hct (40-54) % MCV (80-94) fL MCH (27.0-32.0) pg MCHC (32-36) g/gl RDW (11.6-14.6) % RDW Differential (35.1-43.9) fl Plt Count (150-450) K/mm3 MPV (6.2-12.0) fl Immature Gran % (Auto) (0.0-0.9) % Neut % (Auto) (47-70) % Lymph % (Auto) (19-41) % Hendricks % (Auto) (0-10) % Eos % (Auto) (0-5) % Baso % (Auto) (0-1) % Absolute Neuts (auto) (2.0-7.7) X10^3/uL Absolute Lymphs (auto) (0.83-4.51) X10^3/ul Total Counted Neutrophils % (Manual) Band Neutrophils % Lymphocytes % (Manual) Monocytes % (Manual) Eosinophils % (Manual) Basophils % (Manual) Metamyelocytes % Myelocytes % Promyelocytes % Blast Cells % Plasma Cell % (Manual) Other Cells % Nucleated RBCs/100 WBC Differential Comment Diff Path Review Hypersegmented Neuts Atypical Lymphocytes % Reactive Lymphocytes Smudge Cells Toxic Granulation Dohle Bodies Iesha Rods Platelet Estimate Immature Plt Fraction (1.0-7.9) % Plt Morphology Comment RBC Morphology Polychromasia Hypochromasia Poikilocytosis Basophilic Stippling Anisocytosis Microcytosis Macrocytosis Spherocytes Sickle Cells Target Cells Tear Drop Cells Ovalocytes Stomatocytes Herrera-Cazadero Bodies Charli Cells Bite Cells Acanthocytes (Spur) Rouleaux Schistocytes Retic Count (0.5-1.5) % Immature Retic Fraction (3.00-15.90) % Retic Hgb Equivalent (30-35) pg PT (11.7-14.9) SECONDS INR APTT (24.1-36.2) Seconds Sodium 137 (136-145) mmol/L Potassium 4.2 (3.5-5.1) mmol/L Chloride 101 (98-107) mmol/L Carbon Dioxide 27.0 (21.0-32.0) mmol/L Anion Gap 9 (5-15) BUN 27 H (7-18) mg/dL Creatinine 1.39 H (0.70-1.30) mg/dL Estim Creat Clear Calc 55.44 ml/min Est GFR (MDRD) Af Amer 66 (>60) mL/min Est GFR (MDRD) Non-Af 55 L (>60) mL/min BUN/Creatinine Ratio 19.4 (10-20) RATIO Glucose 164 H (74-106) mg/dL Uric Acid (3.5-7.2) mg/dL Calcium 8.3 L (8.5-10.1) mg/dL Iron 257 H (65-175) ug/dL TIBC 275 (250-450) ug/dL Iron Saturation 93.5 H (15.0-55.0) % Ferritin 1385 H (26-388) ng/mL Total Bilirubin (0.20-1.00) mg/dL Direct Bilirubin (0.00-0.30) mg/dL AST (15-37) U/L ALT (16-61) U/L Alkaline Phosphatase (45-117) U/L Troponin I 0.056 H (<0.045) ng/mL Total Protein (6.4-8.2) g/dL Albumin (3.2-5.0) g/dL Globulin (2.2-4.2) g/dL Albumin/Globulin Ratio (0.9-2.4) RATIO Folate 6.80 (3.1-55.4) ng/mL TSH (0.358-3.74) uIU/mL Blood Type Antibody Screen Crossmatch 09/13/18 Range/Units 18:12 WBC 3.3 L (4.4-11.0) K/mm3 Corrected WBC RBC 1.25 L (4.6-6.2) M/mm3 Hgb 4.6 L* (13.0-16.5) g/dl Hct 14.0 L (40-54) % MCV 112.0 H (80-94) fL MCH 36.8 H (27.0-32.0) pg MCHC 32.9 (32-36) g/gl RDW 16.3 H (11.6-14.6) % RDW Differential 65.6 H (35.1-43.9) fl Plt Count 48 L* (150-450) K/mm3 MPV 9.7 (6.2-12.0) fl Immature Gran % (Auto) 0.300 (0.0-0.9) % Neut % (Auto) 12.3 L (47-70) % Lymph % (Auto) 86.8 H (19-41) % Hendricks % (Auto) 0.3 (0-10) % Eos % (Auto) 0.0 (0-5) % Baso % (Auto) 0.3 (0-1) % Absolute Neuts (auto) 0.4 L (2.0-7.7) X10^3/uL Absolute Lymphs (auto) 2.89 (0.83-4.51) X10^3/ul Total Counted Not Reportable Neutrophils % (Manual) Band Neutrophils % Lymphocytes % (Manual) Monocytes % (Manual) Eosinophils % (Manual) Basophils % (Manual) Metamyelocytes % Myelocytes % Promyelocytes % Blast Cells % Plasma Cell % (Manual) Other Cells % Nucleated RBCs/100 WBC Differential Comment SCANNED Diff Path Review May foll Hypersegmented Neuts Atypical Lymphocytes 1+ % Reactive Lymphocytes 1+ Smudge Cells Toxic Granulation Dohle Bodies Iesha Rods Platelet Estimate Immature Plt Fraction (1.0-7.9) % Plt Morphology Comment RBC Morphology Polychromasia 1+ Hypochromasia Poikilocytosis Basophilic Stippling Anisocytosis 2+ Microcytosis Macrocytosis 2+ Spherocytes Sickle Cells Target Cells Tear Drop Cells Ovalocytes Stomatocytes Herrera-Cazadero Bodies Charli Cells Bite Cells Acanthocytes (Spur) Rouleaux Schistocytes Retic Count (0.5-1.5) % Immature Retic Fraction (3.00-15.90) % Retic Hgb Equivalent (30-35) pg PT (11.7-14.9) SECONDS INR APTT (24.1-36.2) Seconds Sodium (136-145) mmol/L Potassium (3.5-5.1) mmol/L Chloride (98-107) mmol/L Carbon Dioxide (21.0-32.0) mmol/L Anion Gap (5-15) BUN (7-18) mg/dL Creatinine (0.70-1.30) mg/dL Estim Creat Clear Calc ml/min Est GFR (MDRD) Af Amer (>60) mL/min Est GFR (MDRD) Non-Af (>60) mL/min BUN/Creatinine Ratio (10-20) RATIO Glucose (74-106) mg/dL Uric Acid (3.5-7.2) mg/dL Calcium (8.5-10.1) mg/dL Iron (65-175) ug/dL TIBC (250-450) ug/dL Iron Saturation (15.0-55.0) % Ferritin (26-388) ng/mL Total Bilirubin (0.20-1.00) mg/dL Direct Bilirubin (0.00-0.30) mg/dL AST (15-37) U/L ALT (16-61) U/L Alkaline Phosphatase (45-117) U/L Troponin I (<0.045) ng/mL Total Protein (6.4-8.2) g/dL Albumin (3.2-5.0) g/dL Globulin (2.2-4.2) g/dL Albumin/Globulin Ratio (0.9-2.4) RATIO Folate (3.1-55.4) ng/mL TSH (0.358-3.74) uIU/mL Blood Type Antibody Screen Crossmatch Dr. Flanagan - General Surgery Operations: None Procedures: None Summary of Care Provided: The patient is a 63 year old M with a past medical history of hypertension, obesity, colon polyps, CHING and gout who presented to the emergency department at [facility] on 09/13/2018 complaining of shortness of breath and increasing fatigue. Symptoms had been present for approximately 1 week. He denied fever or chills but did complain of an occasional non-productive cough. He has lost 23 pounds in the past 3 weeks. He denied night sweats, dysuria, abdominal pain, TRACEY, neck stiffness. Vital signs in the emergency department were temperature 97.9, pulse rate 88, blood pressure 101/51, respiratory rate 18 and he was 97-100% saturated on a 2 L nasal cannula. CBC showed a white blood cell count of 3.3, hemoglobin of 4.6, MCV of 112 and a platelet count of 48,000. PT was 16.1 and the PTT was 31.4. Electrolytes were within normal limits. BUN was 27 with a creatinine of 1.39. A random blood sugar was 164. Troponin was 0.056 and has trended down to 0.032. CT chest showed consolidation in the right lower lobe with bilateral groundglass opacities. He was admitted to the hospital and transfused with 2 units of PRBC's. Lab was repeated the following AM and the WBC was 3.0 with 4% neutrophils, 4% band neutrophils, 40% metamyelocytes and 12% blast cells. Hemoglobin was 5.6 and the platelet count was 42,000. Repeat creatinine was 1.06, down from 1.39 at admission. Total bilirubin was 2.0 and the LFTs were otherwise unremarkable. He was placed in reverse isolation for ANC less than 1,000. He was started on Vancomycin and Zosyn and 2 additional units of PRBC's were ordered to be transfused. Transfer to a tertiary facility was recommended for suspected acute leukemia and the pt was agreeable. [facility] was contacted and Dr. Montana will accept the patient for transfer. Slides from the peripheral smear will be sent with the patient. PHYSICAL EXAM: GENERAL: alert, oriented X 3, Cooperative, NAD but looks very pale ORAL: moist mucosa, no mucosal lesions NECK: No JVD, supple, trachea midline LUNGS: coarse crackles in the R base, no wheezes, symmetric chest expansion, no conversational dyspnea, no accessory muscle use, not tachypneic at rest HEART: RRR, Normal S1 and S2, no rub, no gallop, no murmur ABDOMEN: soft, NT, ND, BS present, no guarding with palpation EXTREMITIES: no edema, no cyanosis, no calf tenderness SKIN: No rashes, no breakdown NEUROLOGIC: no focal neurologic deficits PSYCH: appropriate, normal affect, pleasant This note was generated with Imindiation software. It may contain incorrect words, spelling, and punctuation that were not noted in checking the note before signing. - Physical Exam Vital Signs Temp Pulse Resp BP Pulse Ox 99.0 F 84 16 121/65 H 96 09/14/18 08:15 09/14/18 08:15 09/14/18 08:15 09/14/18 08:15 09/14/18 08:15 Oxygen Flow Rate (L/min) 2 Oxygen Delivery Method Room Air Weight: 246 lb 4.101 oz Body Mass Index (BMI) 35.3 Intake and Output for Last 24 Hours 09/12/18 09/13/18 09/14/18 23:59 23:59 23:59 Intake Total 800 / 800 668 / 668 Output Total 150 / 150 Balance 800 / 800 518 / 518 Microbiology Past 72 Hours 09/13/18 19:00 Stool Occult Blood (ADA) - Final Stool Laboratory Tests Past 24 Hrs 09/13/18 09/13/18 09/13/18 18:12 18:12 18:12 WBC 3.3 L Corrected WBC RBC 1.25 L Hgb 4.6 L* Hct 14.0 L MCV 112.0 H MCH 36.8 H MCHC 32.9 RDW 16.3 H RDW Differential 65.6 H Plt Count 48 L* MPV 9.7 Immature Gran % (Auto) 0.300 Neut % (Auto) 12.3 L Lymph % (Auto) 86.8 H Hendricks % (Auto) 0.3 Eos % (Auto) 0.0 Baso % (Auto) 0.3 Absolute Neuts (auto) 0.4 L Absolute Lymphs (auto) 2.89 Total Counted Not Reportable Neutrophils % (Manual) Band Neutrophils % Lymphocytes % (Manual) Monocytes % (Manual) Eosinophils % (Manual) Basophils % (Manual) Metamyelocytes % Myelocytes % Promyelocytes % Blast Cells % Plasma Cell % (Manual) Other Cells % Nucleated RBCs/100 WBC Differential Comment SCANNED Diff Path Review May foll Hypersegmented Neuts Atypical Lymphocytes 1+ Reactive Lymphocytes 1+ Smudge Cells Toxic Granulation Dohle Bodies Iesha Rods Platelet Estimate Immature Plt Fraction Plt Morphology Comment RBC Morphology Polychromasia 1+ Hypochromasia Poikilocytosis Basophilic Stippling Anisocytosis 2+ Microcytosis Macrocytosis 2+ Spherocytes Sickle Cells Target Cells Tear Drop Cells Ovalocytes Stomatocytes Herrera-Cazadero Bodies Dyer Cells Bite Cells Acanthocytes (Spur) Rouleaux Schistocytes Retic Count Immature Retic Fraction Retic Hgb Equivalent PT INR APTT Sodium 137 Potassium 4.2 Chloride 101 Carbon Dioxide 27.0 Anion Gap 9 BUN 27 H Creatinine 1.39 H Estim Creat Clear Calc 55.44 Est GFR (MDRD) Af Amer 66 Est GFR (MDRD) Non-Af 55 L BUN/Creatinine Ratio 19.4 Glucose 164 H Uric Acid Calcium 8.3 L Iron 257 H TIBC 275 Iron Saturation 93.5 H Ferritin 1385 H Total Bilirubin Direct Bilirubin AST ALT Alkaline Phosphatase Troponin I 0.056 H Total Protein Total Protein (PEP) Albumin Globulin Albumin/Globulin Ratio Vitamin B12 Folate TSH IgG IgA IgM Albumin (KIMBERLY) Albumin/Globulin (KIMBERLY) [id number] KIMBERLY [id number]-[id number] KIMBERLY Beta-Globulins (KIMBERLY) Gamma Globulins (KIMBERLY) KIMBERLY M-Hussain Blood Type Antibody Screen Crossmatch 09/13/18 09/13/18 09/13/18 18:12 18:55 18:55 WBC Corrected WBC RBC Hgb Hct MCV MCH MCHC RDW RDW Differential Plt Count MPV Immature Gran % (Auto) Neut % (Auto) Lymph % (Auto) Hendricks % (Auto) Eos % (Auto) Baso % (Auto) Absolute Neuts (auto) Absolute Lymphs (auto) Total Counted Neutrophils % (Manual) Band Neutrophils % Lymphocytes % (Manual) Monocytes % (Manual) Eosinophils % (Manual) Basophils % (Manual) Metamyelocytes % Myelocytes % Promyelocytes % Blast Cells % Plasma Cell % (Manual) Other Cells % Nucleated RBCs/100 WBC Differential Comment Diff Path Review Hypersegmented Neuts Atypical Lymphocytes Reactive Lymphocytes Smudge Cells Toxic Granulation Dohle Bodies Iesha Rods Platelet Estimate Immature Plt Fraction Plt Morphology Comment RBC Morphology Polychromasia Hypochromasia Poikilocytosis Basophilic Stippling Anisocytosis Microcytosis Macrocytosis Spherocytes Sickle Cells Target Cells Tear Drop Cells Ovalocytes Stomatocytes Herrera-Cazadero Bodies Charli Cells Bite Cells Acanthocytes (Spur) Rouleaux Schistocytes Retic Count Immature Retic Fraction Retic Hgb Equivalent PT 16.1 H INR 1.3 APTT 31.4 Sodium Potassium Chloride Carbon Dioxide Anion Gap BUN Creatinine Estim Creat Clear Calc Est GFR (MDRD) Af Amer Est GFR (MDRD) Non-Af BUN/Creatinine Ratio Glucose Uric Acid Calcium Iron TIBC Iron Saturation Ferritin Total Bilirubin Direct Bilirubin AST ALT Alkaline Phosphatase Troponin I Total Protein Total Protein (PEP) Albumin Globulin Albumin/Globulin Ratio Vitamin B12 Folate 6.80 TSH IgG IgA IgM Albumin (KIMBERLY) Albumin/Globulin (KIMBERLY) [id number] KIMBERLY Kadyi-0-Htlywpqyx KIMBERLY Beta-Globulins (KIMBERLY) Gamma Globulins (KIMBERLY) KIMBERLY M-Hussain Blood Type A NEGATIVE Antibody Screen NEGATIVE Crossmatch See Detail 09/14/18 09/14/18 09/14/18 01:16 01:16 04:14 WBC Corrected WBC RBC Hgb Hct MCV MCH MCHC RDW RDW Differential Plt Count MPV Immature Gran % (Auto) Neut % (Auto) Lymph % (Auto) Hendricks % (Auto) Eos % (Auto) Baso % (Auto) Absolute Neuts (auto) Absolute Lymphs (auto) Total Counted Neutrophils % (Manual) Band Neutrophils % Lymphocytes % (Manual) Monocytes % (Manual) Eosinophils % (Manual) Basophils % (Manual) Metamyelocytes % Myelocytes % Promyelocytes % Blast Cells % Plasma Cell % (Manual) Other Cells % Nucleated RBCs/100 WBC Differential Comment Diff Path Review Hypersegmented Neuts Atypical Lymphocytes Reactive Lymphocytes Smudge Cells Toxic Granulation Dohle Bodies Iesha Rods Platelet Estimate Immature Plt Fraction Plt Morphology Comment RBC Morphology Polychromasia Hypochromasia Poikilocytosis Basophilic Stippling Anisocytosis Microcytosis Macrocytosis Spherocytes Sickle Cells Target Cells Tear Drop Cells Ovalocytes Stomatocytes Herrera-Cazadero Bodies Dyer Cells Bite Cells Acanthocytes (Spur) Rouleaux Schistocytes Retic Count Immature Retic Fraction Retic Hgb Equivalent PT INR APTT Sodium 139 Potassium 4.3 Chloride 104 Carbon Dioxide 25.0 Anion Gap 10 BUN 24 H Creatinine 1.06 Estim Creat Clear Calc 72.69 Est GFR (MDRD) Af Amer 90 Est GFR (MDRD) Non-Af 75 BUN/Creatinine Ratio 22.6 H Glucose 120 H Uric Acid Calcium 7.8 L Iron TIBC Iron Saturation Ferritin Total Bilirubin 1.80 H 2.10 H Direct Bilirubin 0.64 H AST 28 26 ALT 24 23 Alkaline Phosphatase 72 70 Troponin I 0.043 0.032 Total Protein 7.0 6.9 Total Protein (PEP) Albumin 2.9 L 2.9 L Globulin 4.1 4.0 Albumin/Globulin Ratio 0.7 L Vitamin B12 Folate TSH IgG IgA IgM Albumin (KIMBERLY) Albumin/Globulin (KIMBERLY) Yrero-[id number] KIMBERLY [id number]-[id number] KIMBERLY Beta-Globulins (KIMBERLY) Gamma Globulins (KIMBERLY) KIMBERLY M-Hussain Blood Type Antibody Screen Crossmatch 09/14/18 09/14/18 09/14/18 04:14 05:50 08:40 WBC Cancelled 3.0 L Corrected WBC Cancelled RBC Cancelled 1.52 L Hgb Cancelled 5.6 L* Hct Cancelled 16.2 L MCV Cancelled 106.6 H MCH Cancelled 36.8 H MCHC Cancelled 34.6 RDW Cancelled Not Reportable RDW Differential Cancelled Not Reportable Plt Count Cancelled 42 L* MPV Cancelled 10.4 Immature Gran % (Auto) Cancelled [employer] Neut % (Auto) Cancelled [employer] Lymph % (Auto) Cancelled [employer] Hendricks % (Auto) Cancelled [employer] Eos % (Auto) Cancelled [employer] Baso % (Auto) Cancelled [employer] Absolute Neuts (auto) Cancelled 0.2 L Absolute Lymphs (auto) Cancelled 1.10 Total Counted Cancelled 25 Neutrophils % (Manual) Cancelled 4 L Band Neutrophils % Cancelled 4 Lymphocytes % (Manual) Cancelled 36 Monocytes % (Manual) Cancelled 4 Eosinophils % (Manual) Cancelled Basophils % (Manual) Cancelled Metamyelocytes % Cancelled 40 H Myelocytes % Cancelled Promyelocytes % Cancelled Blast Cells % Cancelled 12 H* Plasma Cell % (Manual) Cancelled Other Cells % Cancelled Nucleated RBCs/100 WBC Cancelled Differential Comment Cancelled Diff Path Review Cancelled May foll Hypersegmented Neuts Cancelled Atypical Lymphocytes Cancelled Reactive Lymphocytes Cancelled Smudge Cells Cancelled Toxic Granulation Cancelled Dohle Bodies Cancelled Iesha Rods Cancelled Platelet Estimate Cancelled Immature Plt Fraction Plt Morphology Comment Cancelled RBC Morphology Cancelled Polychromasia Cancelled Hypochromasia Cancelled Poikilocytosis Cancelled Basophilic Stippling Cancelled Anisocytosis Cancelled Microcytosis Cancelled Macrocytosis Cancelled Spherocytes Cancelled Sickle Cells Cancelled Target Cells Cancelled Tear Drop Cells Cancelled Ovalocytes Cancelled Stomatocytes Cancelled Herrera-[place] Bodies Cancelled Dyer Cells Cancelled Bite Cells Cancelled Acanthocytes (Spur) Cancelled Rouleaux Cancelled Schistocytes Cancelled Retic Count Immature Retic Fraction Retic Hgb Equivalent PT INR APTT Sodium Potassium Chloride Carbon Dioxide Anion Gap BUN Creatinine Estim Creat Clear Calc Est GFR (MDRD) Af Amer Est GFR (MDRD) Non-Af BUN/Creatinine Ratio Glucose Uric Acid Calcium Iron TIBC Iron Saturation Ferritin Total Bilirubin Direct Bilirubin AST ALT Alkaline Phosphatase Troponin I Total Protein Total Protein (PEP) Albumin Globulin Albumin/Globulin Ratio Vitamin B12 Pending Folate TSH IgG IgA IgM Albumin (KIMBERLY) Albumin/Globulin (KIMBERLY) [id number] KIMBERLY [id number]-4-[id number] KIMBERLY Beta-Globulins (KIMBERLY) Gamma Globulins (KIMBERLY) KIMBERLY M-Hussain Blood Type Antibody Screen Crossmatch 09/14/18 09/14/18 09/14/18 08:40 08:40 08:54 WBC Corrected WBC RBC Hgb Hct MCV MCH MCHC RDW RDW Differential Plt Count MPV Immature Gran % (Auto) Neut % (Auto) Lymph % (Auto) Hendricks % (Auto) Eos % (Auto) Baso % (Auto) Absolute Neuts (auto) Absolute Lymphs (auto) Total Counted Neutrophils % (Manual) Band Neutrophils % Lymphocytes % (Manual) Monocytes % (Manual) Eosinophils % (Manual) Basophils % (Manual) Metamyelocytes % Myelocytes % Promyelocytes % Blast Cells % Plasma Cell % (Manual) Other Cells % Nucleated RBCs/100 WBC Differential Comment Diff Path Review Hypersegmented Neuts Atypical Lymphocytes Reactive Lymphocytes Smudge Cells Toxic Granulation Dohle Bodies Iesha Rods Platelet Estimate Immature Plt Fraction 6.9 Plt Morphology Comment RBC Morphology Polychromasia Hypochromasia Poikilocytosis Basophilic Stippling Anisocytosis Microcytosis Macrocytosis Spherocytes Sickle Cells Target Cells Tear Drop Cells Ovalocytes Stomatocytes Herrera[place] Bodies Charli Cells Bite Cells Acanthocytes (Spur) Rouleaux Schistocytes Retic Count 0.94 Immature Retic Fraction 18.00 H Retic Hgb Equivalent 26.0 L PT INR APTT Sodium Potassium Chloride Carbon Dioxide Anion Gap BUN Creatinine Estim Creat Clear Calc Est GFR (MDRD) Af Amer Est GFR (MDRD) Non-Af BUN/Creatinine Ratio Glucose Uric Acid 5.4 Calcium Iron TIBC Iron Saturation Ferritin Total Bilirubin Direct Bilirubin AST ALT Alkaline Phosphatase Troponin I Total Protein Total Protein (PEP) Pending Albumin Globulin Albumin/Globulin Ratio Vitamin B12 Folate TSH 0.88 IgG Pending IgA Pending IgM Pending Albumin (KIMBERLY) Pending Albumin/Globulin (KIMBERLY) Pending [id number] KIMBERLY Pending [id number] KIMBERLY Pending Beta-Globulins (KIMBERLY) Pending Gamma Globulins (KIMBERLY) Pending KIMBERLY M-Hussain Pending Blood Type Antibody Screen Crossmatch Home Medications: Medications to take at Discharge Allopurinol 300 mg PO DAILY 09/13/18 Metoprolol Tartrate [Lopressor (beta glen)] 25 mg PO DAILY 09/13/18 Loratadine/Pseudoephedrine [Claritin-D 12 Hour Tablet] 1 each PO PRN 09/14/18 Primary Care Physician: Shanti Hanson [Primary Care Provider] - Minutes spent on discharge:: 45 Patient Condition:: Guarded Medical Necessity - Tobacco Use Smoking Status: Former smoker - quit 40 years ago Tobacco Use: Non-smoker Meaningful Use Info Meaningful Use Diagnoses (Choose all that apply): None applicable Code Visit Inpatient E&M: 75977 Disch Hosp
--- NOTE | 2018-09-14 10:02 | DS.PCM_ITS ---
Discharge Date and Diagnosis Date of Admission: 09/13/18 Date of Discharge: 09/14/18 - Primary Discharge Diagnosis Pancytopenia Suspected acute leukemia - Secondary Discharge Diagnosis Gout HTN Obesity Hospital Course and Treatment Imaging Results: Clinical Impression(s) from Imaging Studies Chest X-Ray 09/13/18 18:12 IMPRESSION: 1. Left perihilar opacity may represent early pneumonia. Electronically Signed: Claudio Guzmán MD at 19:01 EST , Service support , Chest CT 09/13/18 21:38 IMPRESSION: Right lower lobe consolidation likely secondary to underlying atelectasis and possible pneumonia. Bilateral groundglass opacities, a nonspecific finding may be secondary to underlying edema. Atherosclerosis. Fatty infiltration of the liver. Electronically Signed: Laura Georges MD at 23:31 EST Tel , Service support , Laboratory Tests 09/14/18 09/14/18 09/14/18 Range/Units 08:54 08:40 05:50 WBC 3.0 L (4.4-11.0) K/mm3 Corrected WBC RBC 1.52 L (4.6-6.2) M/mm3 Hgb 5.6 L* (13.0-16.5) g/dl Hct 16.2 L (40-54) % MCV 106.6 H (80-94) fL MCH 36.8 H (27.0-32.0) pg MCHC 34.6 (32-36) g/gl RDW Not Reportable (11.6-14.6) % RDW Differential Not Reportable (35.1-43.9) fl Plt Count 42 L* (150-450) K/mm3 MPV 10.4 (6.2-12.0) fl Immature Gran % (Auto) PAINT STOCKMAN (0.0-0.9) % Neut % (Auto) PAINT STOCKMAN (47-70) % Lymph % (Auto) PAINT STOCKMAN (19-41) % Mclennan % (Auto) PAINT STOCKMAN (0-10) % Eos % (Auto) PAINT STOCKMAN (0-5) % Baso % (Auto) PAINT STOCKMAN (0-1) % Absolute Neuts (auto) 0.2 L (2.0-7.7) X10^3/uL Absolute Lymphs (auto) 1.10 (0.83-4.51) X10^3/ul Total Counted 25 Neutrophils % (Manual) 4 L Band Neutrophils % 4 Lymphocytes % (Manual) 36 Monocytes % (Manual) 4 Eosinophils % (Manual) Basophils % (Manual) Metamyelocytes % 40 H Myelocytes % Promyelocytes % Blast Cells % 12 H* Plasma Cell % (Manual) Other Cells % Nucleated RBCs/100 WBC Differential Comment Diff Path Review May foll Hypersegmented Neuts Atypical Lymphocytes % Reactive Lymphocytes Smudge Cells Toxic Granulation Dohle Bodies Iesha Rods Platelet Estimate Immature Plt Fraction 6.9 (1.0-7.9) % Plt Morphology Comment RBC Morphology Polychromasia Hypochromasia Poikilocytosis Basophilic Stippling Anisocytosis Microcytosis Macrocytosis Spherocytes Sickle Cells Target Cells Tear Drop Cells Ovalocytes Stomatocytes Herrera-Alamosa Bodies Lester Cells Bite Cells Acanthocytes (Spur) Rouleaux Schistocytes Retic Count 0.94 (0.5-1.5) % Immature Retic Fraction 18.00 H (3.00-15.90) % Retic Hgb Equivalent 26.0 L (30-35) pg PT (11.7-14.9) SECONDS INR APTT (24.1-36.2) Seconds Sodium (136-145) mmol/L Potassium (3.5-5.1) mmol/L Chloride (98-107) mmol/L Carbon Dioxide (21.0-32.0) mmol/L Anion Gap (5-15) BUN (7-18) mg/dL Creatinine (0.70-1.30) mg/dL Estim Creat Clear Calc ml/min Est GFR (MDRD) Af Amer (>60) mL/min Est GFR (MDRD) Non-Af (>60) mL/min BUN/Creatinine Ratio (10-20) RATIO Glucose (74-106) mg/dL Uric Acid 5.4 (3.5-7.2) mg/dL Calcium (8.5-10.1) mg/dL Iron (65-175) ug/dL TIBC (250-450) ug/dL Iron Saturation (15.0-55.0) % Ferritin (26-388) ng/mL Total Bilirubin (0.20-1.00) mg/dL Direct Bilirubin (0.00-0.30) mg/dL AST (15-37) U/L ALT (16-61) U/L Alkaline Phosphatase (45-117) U/L Troponin I (<0.045) ng/mL Total Protein (6.4-8.2) g/dL Albumin (3.2-5.0) g/dL Globulin (2.2-4.2) g/dL Albumin/Globulin Ratio (0.9-2.4) RATIO Folate (3.1-55.4) ng/mL TSH 0.88 (0.358-3.74) uIU/mL Blood Type Antibody Screen Crossmatch 09/14/18 09/14/18 09/14/18 Range/Units 04:14 04:14 01:16 WBC Cancelled (4.4-11.0) K/mm3 Corrected WBC Cancelled RBC Cancelled (4.6-6.2) M/mm3 Hgb Cancelled (13.0-16.5) g/dl Hct Cancelled (40-54) % MCV Cancelled (80-94) fL MCH Cancelled (27.0-32.0) pg MCHC Cancelled (32-36) g/gl RDW Cancelled (11.6-14.6) % RDW Differential Cancelled (35.1-43.9) fl Plt Count Cancelled (150-450) K/mm3 MPV Cancelled (6.2-12.0) fl Immature Gran % (Auto) Cancelled (0.0-0.9) % Neut % (Auto) Cancelled (47-70) % Lymph % (Auto) Cancelled (19-41) % Mclennan % (Auto) Cancelled (0-10) % Eos % (Auto) Cancelled (0-5) % Baso % (Auto) Cancelled (0-1) % Absolute Neuts (auto) Cancelled (2.0-7.7) X10^3/uL Absolute Lymphs (auto) Cancelled (0.83-4.51) X10^3/ul Total Counted Cancelled Neutrophils % (Manual) Cancelled Band Neutrophils % Cancelled Lymphocytes % (Manual) Cancelled Monocytes % (Manual) Cancelled Eosinophils % (Manual) Cancelled Basophils % (Manual) Cancelled Metamyelocytes % Cancelled Myelocytes % Cancelled Promyelocytes % Cancelled Blast Cells % Cancelled Plasma Cell % (Manual) Cancelled Other Cells % Cancelled Nucleated RBCs/100 WBC Cancelled Differential Comment Cancelled Diff Path Review Cancelled Hypersegmented Neuts Cancelled Atypical Lymphocytes Cancelled % Reactive Lymphocytes Cancelled Smudge Cells Cancelled Toxic Granulation Cancelled Dohle Bodies Cancelled Iesha Rods Cancelled Platelet Estimate Cancelled Immature Plt Fraction (1.0-7.9) % Plt Morphology Comment Cancelled RBC Morphology Cancelled Polychromasia Cancelled Hypochromasia Cancelled Poikilocytosis Cancelled Basophilic Stippling Cancelled Anisocytosis Cancelled Microcytosis Cancelled Macrocytosis Cancelled Spherocytes Cancelled Sickle Cells Cancelled Target Cells Cancelled Tear Drop Cells Cancelled Ovalocytes Cancelled Stomatocytes Cancelled Herrera-Alamosa Bodies Cancelled Charli Cells Cancelled Bite Cells Cancelled Acanthocytes (Spur) Cancelled Rouleaux Cancelled Schistocytes Cancelled Retic Count (0.5-1.5) % Immature Retic Fraction (3.00-15.90) % Retic Hgb Equivalent (30-35) pg PT (11.7-14.9) SECONDS INR APTT (24.1-36.2) Seconds Sodium 139 (136-145) mmol/L Potassium 4.3 (3.5-5.1) mmol/L Chloride 104 (98-107) mmol/L Carbon Dioxide 25.0 (21.0-32.0) mmol/L Anion Gap 10 (5-15) BUN 24 H (7-18) mg/dL Creatinine 1.06 (0.70-1.30) mg/dL Estim Creat Clear Calc 72.69 ml/min Est GFR (MDRD) Af Amer 90 (>60) mL/min Est GFR (MDRD) Non-Af 75 (>60) mL/min BUN/Creatinine Ratio 22.6 H (10-20) RATIO Glucose 120 H (74-106) mg/dL Uric Acid (3.5-7.2) mg/dL Calcium 7.8 L (8.5-10.1) mg/dL Iron (65-175) ug/dL TIBC (250-450) ug/dL Iron Saturation (15.0-55.0) % Ferritin (26-388) ng/mL Total Bilirubin 2.10 H (0.20-1.00) mg/dL Direct Bilirubin (0.00-0.30) mg/dL AST 26 (15-37) U/L ALT 23 (16-61) U/L Alkaline Phosphatase 70 (45-117) U/L Troponin I 0.032 0.043 (<0.045) ng/mL Total Protein 6.9 (6.4-8.2) g/dL Albumin 2.9 L (3.2-5.0) g/dL Globulin 4.0 (2.2-4.2) g/dL Albumin/Globulin Ratio 0.7 L (0.9-2.4) RATIO Folate (3.1-55.4) ng/mL TSH (0.358-3.74) uIU/mL Blood Type Antibody Screen Crossmatch 09/14/18 09/13/18 09/13/18 Range/Units 01:16 18:55 18:55 WBC (4.4-11.0) K/mm3 Corrected WBC RBC (4.6-6.2) M/mm3 Hgb (13.0-16.5) g/dl Hct (40-54) % MCV (80-94) fL MCH (27.0-32.0) pg MCHC (32-36) g/gl RDW (11.6-14.6) % RDW Differential (35.1-43.9) fl Plt Count (150-450) K/mm3 MPV (6.2-12.0) fl Immature Gran % (Auto) (0.0-0.9) % Neut % (Auto) (47-70) % Lymph % (Auto) (19-41) % Mclennan % (Auto) (0-10) % Eos % (Auto) (0-5) % Baso % (Auto) (0-1) % Absolute Neuts (auto) (2.0-7.7) X10^3/uL Absolute Lymphs (auto) (0.83-4.51) X10^3/ul Total Counted Neutrophils % (Manual) Band Neutrophils % Lymphocytes % (Manual) Monocytes % (Manual) Eosinophils % (Manual) Basophils % (Manual) Metamyelocytes % Myelocytes % Promyelocytes % Blast Cells % Plasma Cell % (Manual) Other Cells % Nucleated RBCs/100 WBC Differential Comment Diff Path Review Hypersegmented Neuts Atypical Lymphocytes % Reactive Lymphocytes Smudge Cells Toxic Granulation Dohle Bodies Iesha Rods Platelet Estimate Immature Plt Fraction (1.0-7.9) % Plt Morphology Comment RBC Morphology Polychromasia Hypochromasia Poikilocytosis Basophilic Stippling Anisocytosis Microcytosis Macrocytosis Spherocytes Sickle Cells Target Cells Tear Drop Cells Ovalocytes Stomatocytes Herrera-Alamosa Bodies Charli Cells Bite Cells Acanthocytes (Spur) Rouleaux Schistocytes Retic Count (0.5-1.5) % Immature Retic Fraction (3.00-15.90) % Retic Hgb Equivalent (30-35) pg PT 16.1 H (11.7-14.9) SECONDS INR 1.3 APTT 31.4 (24.1-36.2) Seconds Sodium (136-145) mmol/L Potassium (3.5-5.1) mmol/L Chloride (98-107) mmol/L Carbon Dioxide (21.0-32.0) mmol/L Anion Gap (5-15) BUN (7-18) mg/dL Creatinine (0.70-1.30) mg/dL Estim Creat Clear Calc ml/min Est GFR (MDRD) Af Amer (>60) mL/min Est GFR (MDRD) Non-Af (>60) mL/min BUN/Creatinine Ratio (10-20) RATIO Glucose (74-106) mg/dL Uric Acid (3.5-7.2) mg/dL Calcium (8.5-10.1) mg/dL Iron (65-175) ug/dL TIBC (250-450) ug/dL Iron Saturation (15.0-55.0) % Ferritin (26-388) ng/mL Total Bilirubin 1.80 H (0.20-1.00) mg/dL Direct Bilirubin 0.64 H (0.00-0.30) mg/dL AST 28 (15-37) U/L ALT 24 (16-61) U/L Alkaline Phosphatase 72 (45-117) U/L Troponin I (<0.045) ng/mL Total Protein 7.0 (6.4-8.2) g/dL Albumin 2.9 L (3.2-5.0) g/dL Globulin 4.1 (2.2-4.2) g/dL Albumin/Globulin Ratio (0.9-2.4) RATIO Folate (3.1-55.4) ng/mL TSH (0.358-3.74) uIU/mL Blood Type A NEGATIVE Antibody Screen NEGATIVE Crossmatch See Detail 09/13/18 09/13/18 09/13/18 Range/Units 18:12 18:12 18:12 WBC (4.4-11.0) K/mm3 Corrected WBC RBC (4.6-6.2) M/mm3 Hgb (13.0-16.5) g/dl Hct (40-54) % MCV (80-94) fL MCH (27.0-32.0) pg MCHC (32-36) g/gl RDW (11.6-14.6) % RDW Differential (35.1-43.9) fl Plt Count (150-450) K/mm3 MPV (6.2-12.0) fl Immature Gran % (Auto) (0.0-0.9) % Neut % (Auto) (47-70) % Lymph % (Auto) (19-41) % Mclennan % (Auto) (0-10) % Eos % (Auto) (0-5) % Baso % (Auto) (0-1) % Absolute Neuts (auto) (2.0-7.7) X10^3/uL Absolute Lymphs (auto) (0.83-4.51) X10^3/ul Total Counted Neutrophils % (Manual) Band Neutrophils % Lymphocytes % (Manual) Monocytes % (Manual) Eosinophils % (Manual) Basophils % (Manual) Metamyelocytes % Myelocytes % Promyelocytes % Blast Cells % Plasma Cell % (Manual) Other Cells % Nucleated RBCs/100 WBC Differential Comment Diff Path Review Hypersegmented Neuts Atypical Lymphocytes % Reactive Lymphocytes Smudge Cells Toxic Granulation Dohle Bodies Iesha Rods Platelet Estimate Immature Plt Fraction (1.0-7.9) % Plt Morphology Comment RBC Morphology Polychromasia Hypochromasia Poikilocytosis Basophilic Stippling Anisocytosis Microcytosis Macrocytosis Spherocytes Sickle Cells Target Cells Tear Drop Cells Ovalocytes Stomatocytes Herrera-Alamosa Bodies Charli Cells Bite Cells Acanthocytes (Spur) Rouleaux Schistocytes Retic Count (0.5-1.5) % Immature Retic Fraction (3.00-15.90) % Retic Hgb Equivalent (30-35) pg PT (11.7-14.9) SECONDS INR APTT (24.1-36.2) Seconds Sodium 137 (136-145) mmol/L Potassium 4.2 (3.5-5.1) mmol/L Chloride 101 (98-107) mmol/L Carbon Dioxide 27.0 (21.0-32.0) mmol/L Anion Gap 9 (5-15) BUN 27 H (7-18) mg/dL Creatinine 1.39 H (0.70-1.30) mg/dL Estim Creat Clear Calc 55.44 ml/min Est GFR (MDRD) Af Amer 66 (>60) mL/min Est GFR (MDRD) Non-Af 55 L (>60) mL/min BUN/Creatinine Ratio 19.4 (10-20) RATIO Glucose 164 H (74-106) mg/dL Uric Acid (3.5-7.2) mg/dL Calcium 8.3 L (8.5-10.1) mg/dL Iron 257 H (65-175) ug/dL TIBC 275 (250-450) ug/dL Iron Saturation 93.5 H (15.0-55.0) % Ferritin 1385 H (26-388) ng/mL Total Bilirubin (0.20-1.00) mg/dL Direct Bilirubin (0.00-0.30) mg/dL AST (15-37) U/L ALT (16-61) U/L Alkaline Phosphatase (45-117) U/L Troponin I 0.056 H (<0.045) ng/mL Total Protein (6.4-8.2) g/dL Albumin (3.2-5.0) g/dL Globulin (2.2-4.2) g/dL Albumin/Globulin Ratio (0.9-2.4) RATIO Folate 6.80 (3.1-55.4) ng/mL TSH (0.358-3.74) uIU/mL Blood Type Antibody Screen Crossmatch 09/13/18 Range/Units 18:12 WBC 3.3 L (4.4-11.0) K/mm3 Corrected WBC RBC 1.25 L (4.6-6.2) M/mm3 Hgb 4.6 L* (13.0-16.5) g/dl Hct 14.0 L (40-54) % MCV 112.0 H (80-94) fL MCH 36.8 H (27.0-32.0) pg MCHC 32.9 (32-36) g/gl RDW 16.3 H (11.6-14.6) % RDW Differential 65.6 H (35.1-43.9) fl Plt Count 48 L* (150-450) K/mm3 MPV 9.7 (6.2-12.0) fl Immature Gran % (Auto) 0.300 (0.0-0.9) % Neut % (Auto) 12.3 L (47-70) % Lymph % (Auto) 86.8 H (19-41) % Mclennan % (Auto) 0.3 (0-10) % Eos % (Auto) 0.0 (0-5) % Baso % (Auto) 0.3 (0-1) % Absolute Neuts (auto) 0.4 L (2.0-7.7) X10^3/uL Absolute Lymphs (auto) 2.89 (0.83-4.51) X10^3/ul Total Counted Not Reportable Neutrophils % (Manual) Band Neutrophils % Lymphocytes % (Manual) Monocytes % (Manual) Eosinophils % (Manual) Basophils % (Manual) Metamyelocytes % Myelocytes % Promyelocytes % Blast Cells % Plasma Cell % (Manual) Other Cells % Nucleated RBCs/100 WBC Differential Comment SCANNED Diff Path Review May foll Hypersegmented Neuts Atypical Lymphocytes 1+ % Reactive Lymphocytes 1+ Smudge Cells Toxic Granulation Dohle Bodies Iesha Rods Platelet Estimate Immature Plt Fraction (1.0-7.9) % Plt Morphology Comment RBC Morphology Polychromasia 1+ Hypochromasia Poikilocytosis Basophilic Stippling Anisocytosis 2+ Microcytosis Macrocytosis 2+ Spherocytes Sickle Cells Target Cells Tear Drop Cells Ovalocytes Stomatocytes Herrera-Alamosa Bodies Charli Cells Bite Cells Acanthocytes (Spur) Rouleaux Schistocytes Retic Count (0.5-1.5) % Immature Retic Fraction (3.00-15.90) % Retic Hgb Equivalent (30-35) pg PT (11.7-14.9) SECONDS INR APTT (24.1-36.2) Seconds Sodium (136-145) mmol/L Potassium (3.5-5.1) mmol/L Chloride (98-107) mmol/L Carbon Dioxide (21.0-32.0) mmol/L Anion Gap (5-15) BUN (7-18) mg/dL Creatinine (0.70-1.30) mg/dL Estim Creat Clear Calc ml/min Est GFR (MDRD) Af Amer (>60) mL/min Est GFR (MDRD) Non-Af (>60) mL/min BUN/Creatinine Ratio (10-20) RATIO Glucose (74-106) mg/dL Uric Acid (3.5-7.2) mg/dL Calcium (8.5-10.1) mg/dL Iron (65-175) ug/dL TIBC (250-450) ug/dL Iron Saturation (15.0-55.0) % Ferritin (26-388) ng/mL Total Bilirubin (0.20-1.00) mg/dL Direct Bilirubin (0.00-0.30) mg/dL AST (15-37) U/L ALT (16-61) U/L Alkaline Phosphatase (45-117) U/L Troponin I (<0.045) ng/mL Total Protein (6.4-8.2) g/dL Albumin (3.2-5.0) g/dL Globulin (2.2-4.2) g/dL Albumin/Globulin Ratio (0.9-2.4) RATIO Folate (3.1-55.4) ng/mL TSH (0.358-3.74) uIU/mL Blood Type Antibody Screen Crossmatch Dr. Flanagan - General Surgery Operations: None Procedures: None Summary of Care Provided: The patient is a 63 year old M with a past medical history of hypertension, obesity, colon polyps, CHING and gout who presented to the emergency department at [facility] on 09/13/2018 complaining of shortness of breath and increasing fatigue. Symptoms had been present for approximately 1 week. He denied fever or chills but did complain of an occasional non-productive cough. He has lost 23 pounds in the past 3 weeks. He denied night sweats, dysuria, abdominal pain, TRACEY, neck stiffness. Vital signs in the emergency department were temperature 97.9, pulse rate 88, blood pressure 101/51, respiratory rate 18 and he was 97-100% saturated on a 2 L nasal cannula. CBC showed a white blood cell count of 3.3, hemoglobin of 4.6, MCV of 112 and a platelet count of 48,000. PT was 16.1 and the PTT was 31.4. Electrolytes were within normal limits. BUN was 27 with a creatinine of 1.39. A random blood sugar was 164. Troponin was 0.056 and has trended down to 0.032. CT chest showed consolidation in the right lower lobe with bilateral groundglass opacities. He was admitted to the hospital and transfused with 2 units of PRBC's. Lab was repeated the following AM and the WBC was 3.0 with 4% neutrophils, 4% band neutrophils, 40% metamyelocytes and 12% blast cells. Hemoglobin was 5.6 and the platelet count was 42,000. Repeat creatinine was 1.06, down from 1.39 at admission. Total bilirubin was 2.0 and the LFTs were otherwise unremarkable. He was placed in reverse isolation for ANC less than 1,000. He was started on Vancomycin and Zosyn and 2 additional units of PRBC's were ordered to be transfused. Transfer to a tertiary facility was recommended for suspected acute leukemia and the pt was agreeable. [facility] was contacted and Dr. Montana will accept the patient for transfer. Slides from the peripheral smear will be sent with the patient. PHYSICAL EXAM: GENERAL: alert, oriented X 3, Cooperative, NAD but looks very pale ORAL: moist mucosa, no mucosal lesions NECK: No JVD, supple, trachea midline LUNGS: coarse crackles in the R base, no wheezes, symmetric chest expansion, no conversational dyspnea, no accessory muscle use, not tachypneic at rest HEART: RRR, Normal S1 and S2, no rub, no gallop, no murmur ABDOMEN: soft, NT, ND, BS present, no guarding with palpation EXTREMITIES: no edema, no cyanosis, no calf tenderness SKIN: No rashes, no breakdown NEUROLOGIC: no focal neurologic deficits PSYCH: appropriate, normal affect, pleasant This note was generated with Psydexation software. It may contain incorrect words, spelling, and punctuation that were not noted in checking the note before signing. - Physical Exam Vital Signs Temp Pulse Resp BP Pulse Ox 99.0 F 84 16 121/65 H 96 09/14/18 08:15 09/14/18 08:15 09/14/18 08:15 09/14/18 08:15 09/14/18 08:15 Oxygen Flow Rate (L/min) 2 Oxygen Delivery Method Room Air Weight: 246 lb 4.101 oz Body Mass Index (BMI) 35.3 Intake and Output for Last 24 Hours 09/12/18 09/13/18 09/14/18 23:59 23:59 23:59 Intake Total 800 / 800 668 / 668 Output Total 150 / 150 Balance 800 / 800 518 / 518 Microbiology Past 72 Hours 09/13/18 19:00 Stool Occult Blood (ADA) - Final Stool Laboratory Tests Past 24 Hrs 09/13/18 09/13/18 09/13/18 18:12 18:12 18:12 WBC 3.3 L Corrected WBC RBC 1.25 L Hgb 4.6 L* Hct 14.0 L MCV 112.0 H MCH 36.8 H MCHC 32.9 RDW 16.3 H RDW Differential 65.6 H Plt Count 48 L* MPV 9.7 Immature Gran % (Auto) 0.300 Neut % (Auto) 12.3 L Lymph % (Auto) 86.8 H Mclennan % (Auto) 0.3 Eos % (Auto) 0.0 Baso % (Auto) 0.3 Absolute Neuts (auto) 0.4 L Absolute Lymphs (auto) 2.89 Total Counted Not Reportable Neutrophils % (Manual) Band Neutrophils % Lymphocytes % (Manual) Monocytes % (Manual) Eosinophils % (Manual) Basophils % (Manual) Metamyelocytes % Myelocytes % Promyelocytes % Blast Cells % Plasma Cell % (Manual) Other Cells % Nucleated RBCs/100 WBC Differential Comment SCANNED Diff Path Review May foll Hypersegmented Neuts Atypical Lymphocytes 1+ Reactive Lymphocytes 1+ Smudge Cells Toxic Granulation Dohle Bodies Iesha Rods Platelet Estimate Immature Plt Fraction Plt Morphology Comment RBC Morphology Polychromasia 1+ Hypochromasia Poikilocytosis Basophilic Stippling Anisocytosis 2+ Microcytosis Macrocytosis 2+ Spherocytes Sickle Cells Target Cells Tear Drop Cells Ovalocytes Stomatocytes Herrera-Alamosa Bodies Lester Cells Bite Cells Acanthocytes (Spur) Rouleaux Schistocytes Retic Count Immature Retic Fraction Retic Hgb Equivalent PT INR APTT Sodium 137 Potassium 4.2 Chloride 101 Carbon Dioxide 27.0 Anion Gap 9 BUN 27 H Creatinine 1.39 H Estim Creat Clear Calc 55.44 Est GFR (MDRD) Af Amer 66 Est GFR (MDRD) Non-Af 55 L BUN/Creatinine Ratio 19.4 Glucose 164 H Uric Acid Calcium 8.3 L Iron 257 H TIBC 275 Iron Saturation 93.5 H Ferritin 1385 H Total Bilirubin Direct Bilirubin AST ALT Alkaline Phosphatase Troponin I 0.056 H Total Protein Total Protein (PEP) Albumin Globulin Albumin/Globulin Ratio Vitamin B12 Folate TSH IgG IgA IgM Albumin (KIMBERLY) Albumin/Globulin (KIMBERLY) [id number] KIMBERLY [id number]-6-Axjeaquwt KIMBERLY Beta-Globulins (KIMBERLY) Gamma Globulins (KIMBERLY) KIMBERLY M-Hussain Blood Type Antibody Screen Crossmatch 09/13/18 09/13/18 09/13/18 18:12 18:55 18:55 WBC Corrected WBC RBC Hgb Hct MCV MCH MCHC RDW RDW Differential Plt Count MPV Immature Gran % (Auto) Neut % (Auto) Lymph % (Auto) Mclennan % (Auto) Eos % (Auto) Baso % (Auto) Absolute Neuts (auto) Absolute Lymphs (auto) Total Counted Neutrophils % (Manual) Band Neutrophils % Lymphocytes % (Manual) Monocytes % (Manual) Eosinophils % (Manual) Basophils % (Manual) Metamyelocytes % Myelocytes % Promyelocytes % Blast Cells % Plasma Cell % (Manual) Other Cells % Nucleated RBCs/100 WBC Differential Comment Diff Path Review Hypersegmented Neuts Atypical Lymphocytes Reactive Lymphocytes Smudge Cells Toxic Granulation Dohle Bodies Iesha Rods Platelet Estimate Immature Plt Fraction Plt Morphology Comment RBC Morphology Polychromasia Hypochromasia Poikilocytosis Basophilic Stippling Anisocytosis Microcytosis Macrocytosis Spherocytes Sickle Cells Target Cells Tear Drop Cells Ovalocytes Stomatocytes Herrera-[place]amosa Bodies Charli Cells Bite Cells Acanthocytes (Spur) Rouleaux Schistocytes Retic Count Immature Retic Fraction Retic Hgb Equivalent PT 16.1 H INR 1.3 APTT 31.4 Sodium Potassium Chloride Carbon Dioxide Anion Gap BUN Creatinine Estim Creat Clear Calc Est GFR (MDRD) Af Amer Est GFR (MDRD) Non-Af BUN/Creatinine Ratio Glucose Uric Acid Calcium Iron TIBC Iron Saturation Ferritin Total Bilirubin Direct Bilirubin AST ALT Alkaline Phosphatase Troponin I Total Protein Total Protein (PEP) Albumin Globulin Albumin/Globulin Ratio Vitamin B12 Folate 6.80 TSH IgG IgA IgM Albumin (KIMBERLY) Albumin/Globulin (KIMBERLY) [id number] KIMBERLY Xmemd-[id number] KIMBERLY Beta-Globulins (KIMBERLY) Gamma Globulins (KIMBERLY) KIMBERLY M-Hussain Blood Type A NEGATIVE Antibody Screen NEGATIVE Crossmatch See Detail 09/14/18 09/14/18 09/14/18 01:16 01:16 04:14 WBC Corrected WBC RBC Hgb Hct MCV MCH MCHC RDW RDW Differential Plt Count MPV Immature Gran % (Auto) Neut % (Auto) Lymph % (Auto) Mclennan % (Auto) Eos % (Auto) Baso % (Auto) Absolute Neuts (auto) Absolute Lymphs (auto) Total Counted Neutrophils % (Manual) Band Neutrophils % Lymphocytes % (Manual) Monocytes % (Manual) Eosinophils % (Manual) Basophils % (Manual) Metamyelocytes % Myelocytes % Promyelocytes % Blast Cells % Plasma Cell % (Manual) Other Cells % Nucleated RBCs/100 WBC Differential Comment Diff Path Review Hypersegmented Neuts Atypical Lymphocytes Reactive Lymphocytes Smudge Cells Toxic Granulation Dohle Bodies Iesha Rods Platelet Estimate Immature Plt Fraction Plt Morphology Comment RBC Morphology Polychromasia Hypochromasia Poikilocytosis Basophilic Stippling Anisocytosis Microcytosis Macrocytosis Spherocytes Sickle Cells Target Cells Tear Drop Cells Ovalocytes Stomatocytes Herrera-Alamosa Bodies Lester Cells Bite Cells Acanthocytes (Spur) Rouleaux Schistocytes Retic Count Immature Retic Fraction Retic Hgb Equivalent PT INR APTT Sodium 139 Potassium 4.3 Chloride 104 Carbon Dioxide 25.0 Anion Gap 10 BUN 24 H Creatinine 1.06 Estim Creat Clear Calc 72.69 Est GFR (MDRD) Af Amer 90 Est GFR (MDRD) Non-Af 75 BUN/Creatinine Ratio 22.6 H Glucose 120 H Uric Acid Calcium 7.8 L Iron TIBC Iron Saturation Ferritin Total Bilirubin 1.80 H 2.10 H Direct Bilirubin 0.64 H AST 28 26 ALT 24 23 Alkaline Phosphatase 72 70 Troponin I 0.043 0.032 Total Protein 7.0 6.9 Total Protein (PEP) Albumin 2.9 L 2.9 L Globulin 4.1 4.0 Albumin/Globulin Ratio 0.7 L Vitamin B12 Folate TSH IgG IgA IgM Albumin (KIMBERLY) Albumin/Globulin (KIMBERLY) Ohsti-6-Mxnthdhka KIMBERLY Oprlh-2-Yngjogoas KIMBERLY Beta-Globulins (KIMBERLY) Gamma Globulins (KIMBERLY) KIMBERLY M-[place]uss[place] Blood Type Antibody Screen Crossmatch 09/14/18 09/14/18 09/14/18 04:14 05:50 08:40 WBC Cancelled 3.0 L Corrected WBC Cancelled RBC Cancelled 1.52 L Hgb Cancelled 5.6 L* Hct Cancelled 16.2 L MCV Cancelled 106.6 H MCH Cancelled 36.8 H MCHC Cancelled 34.6 RDW Cancelled Not Reportable RDW Differential Cancelled Not Reportable Plt Count Cancelled 42 L* MPV Cancelled 10.4 Immature Gran % (Auto) Cancelled [employer] Neut % (Auto) Cancelled [employer] Lymph % (Auto) Cancelled [employer] M[place]ennan % (Auto) Cancelled [employer] Eos % (Auto) Cancelled [employer] Baso % (Auto) Cancelled [employer] Absolute Neuts (auto) Cancelled 0.2 L Absolute Lymphs (auto) Cancelled 1.10 Total Counted Cancelled 25 Neutrophils % (Manual) Cancelled 4 L Band Neutrophils % Cancelled 4 Lymphocytes % (Manual) Cancelled 36 Monocytes % (Manual) Cancelled 4 Eosinophils % (Manual) Cancelled Basophils % (Manual) Cancelled Metamyelocytes % Cancelled 40 H Myelocytes % Cancelled Promyelocytes % Cancelled Blast Cells % Cancelled 12 H* Plasma Cell % (Manual) Cancelled Other Cells % Cancelled Nucleated RBCs/100 WBC Cancelled Differential Comment Cancelled Diff Path Review Cancelled May foll Hypersegmented Neuts Cancelled Atypical Lymphocytes Cancelled Reactive Lymphocytes Cancelled Smudge Cells Cancelled Toxic Granulation Cancelled Dohle Bodies Cancelled Iesha Rods Cancelled Platelet Estimate Cancelled Immature Plt Fraction Plt Morphology Comment Cancelled RBC Morphology Cancelled Polychromasia Cancelled Hypochromasia Cancelled Poikilocytosis Cancelled Basophilic Stippling Cancelled Anisocytosis Cancelled Microcytosis Cancelled Macrocytosis Cancelled Spherocytes Cancelled Sickle Cells Cancelled Target Cells Cancelled Tear Drop Cells Cancelled Ovalocytes Cancelled Stomatocytes Cancelled Herrera-[place]am[place] Bodies Cancelled Lester Cells Cancelled Bite Cells Cancelled Acanthocytes (Spur) Cancelled Rouleaux Cancelled Schistocytes Cancelled Retic Count Immature Retic Fraction Retic Hgb Equivalent PT INR APTT Sodium Potassium Chloride Carbon Dioxide Anion Gap BUN Creatinine Estim Creat Clear Calc Est GFR (MDRD) Af Amer Est GFR (MDRD) Non-Af BUN/Creatinine Ratio Glucose Uric Acid Calcium Iron TIBC Iron Saturation Ferritin Total Bilirubin Direct Bilirubin AST ALT Alkaline Phosphatase Troponin I Total Protein Total Protein (PEP) Albumin Globulin Albumin/Globulin Ratio Vitamin B12 Pending Folate TSH IgG IgA IgM Albumin (KIMBERLY) Albumin/Globulin (KIMBERLY) [id number] KIMBERLY [id number]-[id number] KIMBERLY Beta-Globulins (KIMBERLY) Gamma Globulins (KIMBERLY) KIMBERLY M-Hussain Blood Type Antibody Screen Crossmatch 09/14/18 09/14/18 09/14/18 08:40 08:40 08:54 WBC Corrected WBC RBC Hgb Hct MCV MCH MCHC RDW RDW Differential Plt Count MPV Immature Gran % (Auto) Neut % (Auto) Lymph % (Auto) Mclennan % (Auto) Eos % (Auto) Baso % (Auto) Absolute Neuts (auto) Absolute Lymphs (auto) Total Counted Neutrophils % (Manual) Band Neutrophils % Lymphocytes % (Manual) Monocytes % (Manual) Eosinophils % (Manual) Basophils % (Manual) Metamyelocytes % Myelocytes % Promyelocytes % Blast Cells % Plasma Cell % (Manual) Other Cells % Nucleated RBCs/100 WBC Differential Comment Diff Path Review Hypersegmented Neuts Atypical Lymphocytes Reactive Lymphocytes Smudge Cells Toxic Granulation Dohle Bodies Iesha Rods Platelet Estimate Immature Plt Fraction 6.9 Plt Morphology Comment RBC Morphology Polychromasia Hypochromasia Poikilocytosis Basophilic Stippling Anisocytosis Microcytosis Macrocytosis Spherocytes Sickle Cells Target Cells Tear Drop Cells Ovalocytes Stomatocytes Herrera-[place] Bodies Charli Cells Bite Cells Acanthocytes (Spur) Rouleaux Schistocytes Retic Count 0.94 Immature Retic Fraction 18.00 H Retic Hgb Equivalent 26.0 L PT INR APTT Sodium Potassium Chloride Carbon Dioxide Anion Gap BUN Creatinine Estim Creat Clear Calc Est GFR (MDRD) Af Amer Est GFR (MDRD) Non-Af BUN/Creatinine Ratio Glucose Uric Acid 5.4 Calcium Iron TIBC Iron Saturation Ferritin Total Bilirubin Direct Bilirubin AST ALT Alkaline Phosphatase Troponin I Total Protein Total Protein (PEP) Pending Albumin Globulin Albumin/Globulin Ratio Vitamin B12 Folate TSH 0.88 IgG Pending IgA Pending IgM Pending Albumin (KIMBERLY) Pending Albumin/Globulin (KIMBERLY) Pending [id number] KIMBERLY Pending [id number]-4-[id number] KIMBERLY Pending Beta-Globulins (KIMBERLY) Pending Gamma Globulins (KIMBERLY) Pending KIMBERLY M-Hussain Pending Blood Type Antibody Screen Crossmatch Home Medications: Medications to take at Discharge Allopurinol 300 mg PO DAILY 09/13/18 Metoprolol Tartrate [Lopressor (beta glen)] 25 mg PO DAILY 09/13/18 Loratadine/Pseudoephedrine [Claritin-D 12 Hour Tablet] 1 each PO PRN 09/14/18 Primary Care Physician: Shanti Hanson [Primary Care Provider] - Minutes spent on discharge:: 45 Patient Condition:: Guarded Medical Necessity - Tobacco Use Smoking Status: Former smoker - quit 40 years ago Tobacco Use: Non-smoker Meaningful Use Info Meaningful Use Diagnoses (Choose all that apply): None applicable Code Visit Inpatient E&M: 70190 Disch Hosp
[2018-09-14] MEDS: Metoprolol Tartrate 25 MG Tablet PO (10:08)
[2018-09-14] MEDS: Loratadine 10 MG Tablet 5 MG PO (10:09)
[2018-09-14] MEDS: Allopurinol 300 MG Tablet PO (10:09)
[2018-09-14 10:54] LABS: Hemoglobin A1c 7.4 % (4.2-6.3)
[2018-09-15 10:45] LABS: Vitamin B12 242 pg/mL (211-911)
[2018-09-15 15:07] LABS: Pathologist Review Reviewed
[2018-09-16 12:43] LABS: Pathologist Review Reviewed
[2018-09-16 16:08] LABS: Albumin 3.3 g/dL (2.9-4.4); Alpha-1-Globulins 0.3 g/dL (0.0-0.4); Gamma Globulin 1.4 g/dL (0.4-1.8); Immunoglobulin A 389 mg/dL (61-437); Immunoglobulin G 1280 mg/dL (700-1600); Immunoglobulin M 54 mg/dL (20-172); PROEL- TOTAL PROTEIN 7.3 g/dL (6.0-8.5)
[2018-09-17 08:17] LABS: Neutrophil-Band 0 % (0-5); Neutrophil-Segmented 19 % (47-70); Total Cells Counted 100 (MANUAL DIFF)
[2018-09-17 08:18] LABS: Blast 3 % (0-0); Lymphocyte 31 % (19-41); Monocyte 47 % (0-10)
[2018-09-17 08:19] LABS: Absolute Neutrophil Count 0.6 X10^3/uL (2.0-7.7); Neutrophil # 0.57 X10^3/uL (2.7-7.7)
== END 2018-09-14 13:05 | disposition short-term general hospital (02) | DRG 809 ==
LOC: ED 20:00 → PCU 23:57
PROVIDERS: Admitting Provider Student in an Organized Health Care Education/Training Program; Emergency Provider Emergency Medicine; Family Provider Internal Medicine; PCP Internal Medicine; Visit Provider Internal Medicine
DX: D61.818 Other pancytopenia (principal); C95.00 Acute leukemia of unspecified cell type not having achieved remission; Z80.0 Family history of malignant neoplasm of digestive organs; K75.81 Nonalcoholic steatohepatitis (NASH); M10.9 Gout, unspecified; E66.9 Obesity, unspecified; Z68.35 Body mass index [BMI] 35.0-35.9, adult; I10 Essential (primary) hypertension; Z86.010 Personal history of colon polyps; Z87.891 Personal history of nicotine dependence
CPT/HCPCS: 36415; 71045; 71260; 80048; 80053; 80076; 82274; 82607; 82728; 82746; 82784; 83036; 83540; 83550; 84165; 84443; 84484; 84550; 85025; 85045; 85610; 85730; 86334; 86850; 86900; 86920; 86922; 93005; 99283; J7030; J7040; P9016; Q9967; A4216

== ENCOUNTER → 2018-09-29 10:55 | Outpatient (CLI) | payer OTHER, SELFPAY ==
[2018-09-14 00:37] VITALS: BMI 35.3
[2018-09-29 11:50] LABS: Basophil# 0.01 X10^3/uL; Basophil% 0.6 % (0-1); Hematocrit 23.4 % (40-54); Hemoglobin 7.3 g/dl (13.0-16.5); Lymphocyte % 74.7 % (19-41); Mean Corp Hgb Conc 31.2 g/gl (32-36); Mean Corpuscular Hgb 31.3 pg (27.0-32.0); Mean Corpuscular Volume 100.4 fL (80-94); Mean Platelet Vol. 11.8 fl (6.2-12.0); Monocyte# 0.41 X10^3/uL; Monocyte% 23.6 % (0-10); Neutrophil # 0.02 X10^3/uL (2.7-7.7); Neutrophil % 1.1 % (47-70); RBC Distribution Width CV 17.5 % (11.6-14.6); RBC Distribution Width SD 63.4 fl (35.1-43.9); Red Blood Count 2.33 M/mm3 (4.6-6.2); White Blood Count 1.7 K/mm3 (4.4-11.0)
[2018-09-29 11:53] LABS: AST(SGOT) 53 U/L (15-37); Alanine Aminotransfer ALT/SGPT 32 U/L (16-61); Albumin, Serum 2.7 g/dL (3.2-5.0); Alkaline Phosphatase 120 U/L (45-117); Anion Gap 8 (5-15); BUN 19 mg/dL (7-18); BUN/Creat Ratio 14.2 RATIO (10-20); Bilirubin, Direct 0.26 mg/dL (0.00-0.30); Calcium,Total 8.3 mg/dL (8.5-10.1); Chloride 95 mmol/L (98-107); Creatinine, Serum 1.34 mg/dL (0.70-1.30); EST Glomerular Filtration Rate 57 mL/min (>60); Est Glom Filt Rate - Afr Amer 69 mL/min (>60); Globulin 5.4 g/dL (2.2-4.2); Glucose 176 mg/dL (74-106); Potassium 3.9 mmol/L (3.5-5.1); Protein, Total 8.1 g/dL (6.4-8.2); Sodium Level 134 mmol/L (136-145)
[2018-09-29 12:01] LABS: Differential Indicated SCAN CRITERIA MET; POSITIVE COUNT YES; POSITIVE DIFFERENTIAL YES; POSITIVE MORPHOLOGY YES; Platelet Count 22 K/mm3 (150-450)
[2018-09-30 14:10] LABS: Pathologist Review Reviewed
== END ==
PROVIDERS: Family Provider Internal Medicine; PCP Internal Medicine
DX: Z45.2 Encounter for adjustment and management of vascular access device (principal); C92.00 Acute myeloblastic leukemia, not having achieved remission
CPT/HCPCS: 36592; 80048; 80076; 85025; A4216

== ENCOUNTER → 2018-09-30 08:09 | Outpatient (CLI) | payer OTHER, SELFPAY ==
[2018-09-14 00:37] VITALS: BMI 35.3
[2018-09-30] VITALS (7 sets, daily range): BP systolic 109–124; BP diastolic 57–67; PULSE 85–87; RESP 16–18; TEMP 36.3–37; O2SAT 95–99; BMI 35.9
== END ==
PROVIDERS: Family Provider Internal Medicine; PCP Internal Medicine
DX: C92.00 Acute myeloblastic leukemia, not having achieved remission (principal)
CPT/HCPCS: 36430; 86644; 86850; 86900; 86920; 86922; J7040; P9040; A4216

== ENCOUNTER → 2018-10-02 13:04 | Outpatient (CLI) | payer OTHER, SELFPAY ==
[2018-09-14 00:37] VITALS: BMI 35.3
[2018-09-30 08:18] VITALS: BMI 35.9
[2018-10-02 14:11] LABS: Hematocrit 27.4 % (40-54); Hemoglobin 8.6 g/dl (13.0-16.5); Mean Corp Hgb Conc 31.4 g/gl (32-36); Mean Corpuscular Hgb 30.7 pg (27.0-32.0); Mean Corpuscular Volume 97.9 fL (80-94); Mean Platelet Vol. 9.2 fl (6.2-12.0); Platelet Count 21 K/mm3 (150-450); RBC Distribution Width CV 17.1 % (11.6-14.6); RBC Distribution Width SD 58.4 fl (35.1-43.9); Scan Indicated on CBC? Y/N YES- FLAGS NOTED; White Blood Count 2.2 K/mm3 (4.4-11.0)
[2018-10-02 14:33] LABS: Anion Gap 8 (5-15); BUN 20 mg/dL (7-18); BUN/Creat Ratio 15.6 RATIO (10-20); Calcium,Total 8.6 mg/dL (8.5-10.1); Chloride 95 mmol/L (98-107); Creatinine, Serum 1.28 mg/dL (0.70-1.30); EST Glomerular Filtration Rate 60 mL/min (>60); Est Glom Filt Rate - Afr Amer 73 mL/min (>60); Glucose 114 mg/dL (74-106); Potassium 4.2 mmol/L (3.5-5.1); Sodium Level 135 mmol/L (136-145)
[2018-10-03 13:23] LABS: Pathologist Review Reviewed
== END ==
PROVIDERS: Family Provider Internal Medicine; PCP Internal Medicine
DX: C92.00 Acute myeloblastic leukemia, not having achieved remission (principal)
CPT/HCPCS: 36592; 80048; 85027; A4216

== ENCOUNTER → 2018-10-08 11:03 | Outpatient (CLI) | payer OTHER, SELFPAY ==
[2018-10-06 14:06] VITALS: BMI 32.7
[2018-10-08 08:56] VITALS: BMI 32.8
== END ==
PROVIDERS: Family Provider Internal Medicine; PCP Internal Medicine
DX: Z45.2 Encounter for adjustment and management of vascular access device (principal); C92.00 Acute myeloblastic leukemia, not having achieved remission
CPT/HCPCS: 36592; A4216

== ENCOUNTER → 2018-10-09 09:12 | Outpatient (CLI) | payer OTHER, SELFPAY ==
[2018-10-08 08:56] VITALS: BMI 32.8
[2018-10-09 09:24] VITALS: BP 119/69; PULSE 78; RESP 18; TEMP 36.6; O2SAT 95; BMI 32.8
[2018-10-09 10:09] VITALS: BP 107/61; PULSE 77; RESP 16; TEMP 36.6; O2SAT 99
[2018-10-09 11:09] VITALS: BP 104/62; PULSE 80; RESP 18; TEMP 36.6; O2SAT 98
[2018-10-09 12:13] VITALS: BP 110/71; PULSE 76; RESP 18; TEMP 36.5; O2SAT 94
[2018-10-09 12:28] VITALS: BP 107/61; PULSE 79; RESP 16; TEMP 36.8; O2SAT 97
[2018-10-09 14:49] VITALS: BP 106/65; PULSE 78; RESP 16; TEMP 36.8; O2SAT 95
== END ==
PROVIDERS: Family Provider Internal Medicine; PCP Internal Medicine; Referring Provider Nurse Practitioner Adult Health; Visit Provider Nurse Practitioner Adult Health
DX: Z45.2 Encounter for adjustment and management of vascular access device (principal); C92.00 Acute myeloblastic leukemia, not having achieved remission
CPT/HCPCS: 36430; 86644; 86850; 86900; 86920; 86922; J7040; P9040; A4216

== ENCOUNTER → 2018-10-13 15:37 | Outpatient (CLI) | payer OTHER, SELFPAY ==
[2018-10-09 09:24] VITALS: BMI 32.8
[2018-10-13 16:27] LABS: Hematocrit 28.7 % (40-54); Hemoglobin 8.9 g/dl (13.0-16.5); Mean Corpuscular Volume 96.6 fL (80-94); Mean Platelet Vol. 9.1 fl (6.2-12.0); RBC Distribution Width SD 53.2 fl (35.1-43.9); Red Blood Count 2.97 M/mm3 (4.6-6.2)
[2018-10-13 16:34] LABS: Platelet Count 25 K/mm3 (150-450); Scan Indicated on CBC? Y/N YES- FLAGS NOTED
[2018-10-13 16:38] LABS: AST(SGOT) 39 U/L (15-37); Alanine Aminotransfer ALT/SGPT 26 U/L (16-61); Albumin, Serum 2.9 g/dL (3.2-5.0); Alkaline Phosphatase 128 U/L (45-117); Anion Gap 9 (5-15); BUN 20 mg/dL (7-18); BUN/Creat Ratio 16.1 RATIO (10-20); Bilirubin, Direct 0.23 mg/dL (0.00-0.30); Calcium,Total 8.4 mg/dL (8.5-10.1); Chloride 101 mmol/L (98-107); Creatinine, Serum 1.24 mg/dL (0.70-1.30); EST Glomerular Filtration Rate 62 mL/min (>60); Est Glom Filt Rate - Afr Amer 75 mL/min (>60); Globulin 5.1 g/dL (2.2-4.2); Glucose 154 mg/dL (74-106); Potassium 4.3 mmol/L (3.5-5.1); Sodium Level 138 mmol/L (136-145)
[2018-10-13 17:01] LABS: Differential Comment SCANNED
[2018-10-13 23:40] LABS: Xtra Tube EP Lab EXTRA TUBE
[2018-10-14 10:30] LABS: Pathologist Review Reviewed
== END ==
PROVIDERS: Family Provider Internal Medicine; PCP Internal Medicine; Referring Provider Nurse Practitioner Adult Health; Visit Provider Nurse Practitioner Adult Health
DX: C92.00 Acute myeloblastic leukemia, not having achieved remission (principal)
CPT/HCPCS: 96365; 80048; 80076; 85027; J2997; A4216

== ENCOUNTER → 2018-10-16 08:23 | Outpatient (CLI) | payer OTHER, SELFPAY ==
[2018-10-09 09:24] VITALS: BMI 32.8
[2018-10-16 09:22] LABS: Absolute Neutrophil Count 0.1 X10^3/uL (2.0-7.7); Basophil# 0.02 X10^3/uL; Basophil% 0.5 % (0-1); Hematocrit 26.6 % (40-54); Hemoglobin 8.5 g/dl (13.0-16.5); Lymphocyte % 78.2 % (19-41); Mean Corpuscular Hgb 30.2 pg (27.0-32.0); Mean Corpuscular Volume 94.7 fL (80-94); Mean Platelet Vol. 10.2 fl (6.2-12.0); Monocyte% 18.9 % (0-10); Neutrophil # 0.09 X10^3/uL (2.7-7.7); Neutrophil % 2.4 % (47-70); RBC Distribution Width CV 16.5 % (11.6-14.6); RBC Distribution Width SD 55.9 fl (35.1-43.9); Red Blood Count 2.81 M/mm3 (4.6-6.2); White Blood Count 3.7 K/mm3 (4.4-11.0)
[2018-10-16 09:30] LABS: Differential Indicated SCAN CRITERIA MET; POSITIVE COUNT YES; POSITIVE DIFFERENTIAL YES; POSITIVE MORPHOLOGY YES; Platelet Count 16 K/mm3 (150-450)
[2018-10-16 09:33] LABS: AST(SGOT) 38 U/L (15-37); Alanine Aminotransfer ALT/SGPT 25 U/L (16-61); Albumin, Serum 2.9 g/dL (3.2-5.0); Alkaline Phosphatase 133 U/L (45-117); Anion Gap 8 (5-15); BUN 20 mg/dL (7-18); BUN/Creat Ratio 16.5 RATIO (10-20); Bilirubin, Direct 0.32 mg/dL (0.00-0.30); Calcium,Total 8.2 mg/dL (8.5-10.1); Chloride 102 mmol/L (98-107); Creatinine, Serum 1.21 mg/dL (0.70-1.30); EST Glomerular Filtration Rate 64 mL/min (>60); Est Glom Filt Rate - Afr Amer 78 mL/min (>60); Glucose 113 mg/dL (74-106); Potassium 4.6 mmol/L (3.5-5.1); Protein, Total 7.9 g/dL (6.4-8.2); Sodium Level 138 mmol/L (136-145)
[2018-10-16 16:37] LABS: Xtra Tube EP Lab EXTRA TUBE
[2018-10-17 09:59] LABS: Pathologist Review Reviewed
== END ==
PROVIDERS: Family Provider Internal Medicine; PCP Internal Medicine; Referring Provider Nurse Practitioner Adult Health; Visit Provider Nurse Practitioner Adult Health
DX: C92.00 Acute myeloblastic leukemia, not having achieved remission (principal)
CPT/HCPCS: 36415; 36592; 80048; 80076; 85025; 86900; A4216

== ENCOUNTER → 2018-10-17 14:21 | Outpatient (CLI) | payer OTHER, SELFPAY ==
[2018-10-09 09:24] VITALS: BMI 32.8
[2018-10-17 14:28] VITALS: BP 120/71; PULSE 95; RESP 18; TEMP 37.4; O2SAT 96; BMI 32.8
[2018-10-17 14:56] VITALS: BP 124/64; PULSE 102; TEMP 37.1
[2018-10-17 16:30] VITALS: BP 106/65; PULSE 94; RESP 18; TEMP 37; O2SAT 93
== END ==
PROVIDERS: Family Provider Internal Medicine; PCP Internal Medicine; Referring Provider Nurse Practitioner Adult Health; Visit Provider Nurse Practitioner Adult Health
DX: C92.00 Acute myeloblastic leukemia, not having achieved remission (principal)
CPT/HCPCS: 36430; 86900; 86965; J7040; P9037; A4216

== ENCOUNTER → 2018-10-20 07:59 | Outpatient (CLI) | payer OTHER, SELFPAY ==
[2018-10-09 09:24] VITALS: BMI 32.8
[2018-10-17 14:28] VITALS: BMI 32.8
[2018-10-20] VITALS (8 sets, daily range): BP systolic 103–117; BP diastolic 46–69; PULSE 86–98; RESP 16–18; TEMP 36.9–37.5; O2SAT 94–98; BMI 32.8
[2018-10-20 08:54] LABS: Hematocrit 23.2 % (40-54); Hemoglobin 7.4 g/dl (13.0-16.5); Mean Corp Hgb Conc 31.9 g/gl (32-36); Mean Corpuscular Volume 93.9 fL (80-94); Mean Platelet Vol. 9.7 fl (6.2-12.0); RBC Distribution Width CV 16.6 % (11.6-14.6); RBC Distribution Width SD 54.4 fl (35.1-43.9); Red Blood Count 2.47 M/mm3 (4.6-6.2); White Blood Count 5.8 K/mm3 (4.4-11.0)
[2018-10-20 09:00] LABS: POSITIVE COUNT YES; POSITIVE DIFFERENTIAL YES; POSITIVE MORPHOLOGY YES; Platelet Count 23 K/mm3 (150-450)
[2018-10-20 09:08] LABS: AST(SGOT) 37 U/L (15-37); Alanine Aminotransfer ALT/SGPT 23 U/L (16-61); Albumin, Serum 2.9 g/dL (3.2-5.0); Alkaline Phosphatase 130 U/L (45-117); Anion Gap 8 (5-15); BUN 17 mg/dL (7-18); BUN/Creat Ratio 14.8 RATIO (10-20); Bilirubin, Direct 0.35 mg/dL (0.00-0.30); Calcium,Total 8.1 mg/dL (8.5-10.1); Chloride 101 mmol/L (98-107); Creatinine, Serum 1.15 mg/dL (0.70-1.30); EST Glomerular Filtration Rate 68 mL/min (>60); Est Glom Filt Rate - Afr Amer 82 mL/min (>60); Globulin 4.9 g/dL (2.2-4.2); Glucose 115 mg/dL (74-106); Potassium 4.5 mmol/L (3.5-5.1); Protein, Total 7.8 g/dL (6.4-8.2); Sodium Level 137 mmol/L (136-145)
[2018-10-20 09:16] LABS: Differential Indicated MANUAL DIFF
[2018-10-20 09:20] LABS: Blast 11 % (0-0); Lymphocyte 24 % (19-41); Monocyte 58 % (0-10); Neutrophil-Segmented 7 % (47-70); Nucleated Red Bld Cells,Manual 2 % (0-5); Total Cells Counted 100 (MANUAL DIFF)
[2018-10-20 09:21] LABS: Anisocytosis 1+; Hypochromasia 2+; Platelet Estimate MKD DEC (ADEQ); Reactive Lymphocyte 2+; Schistocytes RARE
[2018-10-20 09:22] LABS: Absolute Lymphocyte Count 1.39 X10^3/ul (0.83-4.51); Absolute Neutrophil Count 0.4 X10^3/uL (2.0-7.7)
[2018-10-21 13:44] LABS: Pathologist Review Reviewed
== END ==
PROVIDERS: Family Provider Internal Medicine; PCP Internal Medicine; Referring Provider Nurse Practitioner Adult Health; Visit Provider Nurse Practitioner Adult Health
DX: C92.00 Acute myeloblastic leukemia, not having achieved remission (principal)
CPT/HCPCS: 36430; 36592; 80048; 80076; 85025; 86644; 86850; 86900; 86920; 86922; J7040; P9040; A4216

== ENCOUNTER → 2018-10-23 15:14 | Outpatient (CLI) | payer OTHER, SELFPAY ==
[2018-10-09 09:24] VITALS: BMI 32.8
[2018-10-20 09:46] VITALS: BMI 32.8
[2018-10-23 16:34] LABS: Anion Gap 3 (5-15); BUN 15 mg/dL (7-18); BUN/Creat Ratio 14.3 RATIO (10-20); Chloride 104 mmol/L (98-107); Creatinine, Serum 1.05 mg/dL (0.70-1.30); EST Glomerular Filtration Rate 75 mL/min (>60); Est Glom Filt Rate - Afr Amer 91 mL/min (>60); Glucose 102 mg/dL (74-106); Potassium 3.9 mmol/L (3.5-5.1); Sodium Level 137 mmol/L (136-145)
[2018-10-23 16:46] LABS: Absolute Lymphocyte Count 4.26 X10^3/ul (0.83-4.51); Absolute Neutrophil Count 0.4 X10^3/uL (2.0-7.7); Basophil# 0.03 X10^3/uL; Basophil% 0.6 % (0-1); Hematocrit 26.7 % (40-54); Hemoglobin 8.6 g/dl (13.0-16.5); Lymphocyte # 4.26 X10^3/ul (4.0); Mean Corp Hgb Conc 32.2 g/gl (32-36); Mean Corpuscular Hgb 29.6 pg (27.0-32.0); Mean Corpuscular Volume 91.8 fL (80-94); Mean Platelet Vol. 9.7 fl (6.2-12.0); Monocyte# 0.69 X10^3/uL; Monocyte% 12.8 % (0-10); Neutrophil # 0.41 X10^3/uL (2.7-7.7); Neutrophil % 7.6 % (47-70); RBC Distribution Width CV 16.3 % (11.6-14.6); RBC Distribution Width SD 53.1 fl (35.1-43.9); Red Blood Count 2.91 M/mm3 (4.6-6.2); White Blood Count 5.4 K/mm3 (4.4-11.0)
[2018-10-23 16:50] LABS: Differential Indicated SCAN CRITERIA MET; POSITIVE COUNT YES; POSITIVE DIFFERENTIAL YES; POSITIVE MORPHOLOGY YES; Platelet Count 13 K/mm3 (150-450)
[2018-10-23 17:01] LABS: Differential Comment SCANNED
[2018-10-27 09:11] LABS: Pathologist Review Reviewed
== END ==
PROVIDERS: Family Provider Internal Medicine; PCP Internal Medicine; Referring Provider Nurse Practitioner Adult Health; Visit Provider Nurse Practitioner Adult Health
DX: C92.00 Acute myeloblastic leukemia, not having achieved remission (principal)
CPT/HCPCS: 36592; 80048; 85025; A4216

== ENCOUNTER → 2018-10-24 09:31 | Outpatient (CLI) | payer OTHER, SELFPAY ==
[2018-10-20 09:46] VITALS: BMI 32.8
[2018-10-24 09:39] VITALS: BP 121/56; PULSE 99; RESP 16; TEMP 36.6; O2SAT 96; BMI 32.8
[2018-10-24 10:14] VITALS: BP 111/61; PULSE 93; RESP 18; TEMP 36.9; O2SAT 91
[2018-10-24 11:31] VITALS: BP 109/55; PULSE 84; RESP 18; TEMP 36.9; O2SAT 92
== END ==
PROVIDERS: Family Provider Internal Medicine; PCP Internal Medicine; Referring Provider Nurse Practitioner Adult Health; Visit Provider Nurse Practitioner Adult Health
DX: C92.00 Acute myeloblastic leukemia, not having achieved remission (principal)
CPT/HCPCS: 36430; 86644; 86900; 86965; J7040; P9037; A4216

== ENCOUNTER → 2018-10-27 15:03 | Outpatient (CLI) | payer OTHER, SELFPAY ==
[2018-10-24 09:39] VITALS: BMI 32.8
[2018-10-27 15:50] LABS: AST(SGOT) 46 U/L (15-37); Alanine Aminotransfer ALT/SGPT 25 U/L (16-61); Alkaline Phosphatase 137 U/L (45-117); Anion Gap 3 (5-15); BUN 23 mg/dL (7-18); BUN/Creat Ratio 16.4 RATIO (10-20); Bilirubin, Direct 0.28 mg/dL (0.00-0.30); Calcium,Total 8.1 mg/dL (8.5-10.1); Chloride 98 mmol/L (98-107); EST Glomerular Filtration Rate 54 mL/min (>60); Est Glom Filt Rate - Afr Amer 66 mL/min (>60); Globulin 5.2 g/dL (2.2-4.2); Glucose 128 mg/dL (74-106); Potassium 3.6 mmol/L (3.5-5.1); Protein, Total 8.2 g/dL (6.4-8.2); Sodium Level 134 mmol/L (136-145)
[2018-10-27 16:23] LABS: Absolute Lymphocyte Count 1.32 X10^3/ul (0.83-4.51); Absolute Neutrophil Count 0.2 X10^3/uL (2.0-7.7); Basophil# 0.03 X10^3/uL; Basophil% 0.5 % (0-1); Eosinophil# 0.02 X10^3/uL; Eosinophils% 0.3 % (0-5); Hematocrit 27.9 % (40-54); Hemoglobin 8.7 g/dl (13.0-16.5); Lymphocyte # 1.32 X10^3/ul (4.0); Lymphocyte % 22.7 % (19-41); Mean Corp Hgb Conc 31.2 g/gl (32-36); Mean Corpuscular Hgb 29.2 pg (27.0-32.0); Mean Corpuscular Volume 93.6 fL (80-94); Mean Platelet Vol. 10.9 fl (6.2-12.0); Monocyte# 4.21 X10^3/uL; Monocyte% 72.3 % (0-10); Neutrophil % 3.5 % (47-70); RBC Distribution Width CV 15.7 % (11.6-14.6); RBC Distribution Width SD 49.6 fl (35.1-43.9); Red Blood Count 2.98 M/mm3 (4.6-6.2); White Blood Count 5.8 K/mm3 (4.4-11.0)
[2018-10-27 16:28] LABS: Differential Indicated SCAN CRITERIA MET; POSITIVE COUNT YES; POSITIVE DIFFERENTIAL YES; POSITIVE MORPHOLOGY YES; Platelet Count 16 K/mm3 (150-450)
[2018-10-27 23:07] LABS: Xtra Tube EP Lab EXTRA TUBE
[2018-10-28 14:10] LABS: Pathologist Review Reviewed
== END ==
PROVIDERS: Family Provider Internal Medicine; PCP Internal Medicine; Referring Provider Nurse Practitioner Adult Health; Visit Provider Nurse Practitioner Adult Health
DX: Z45.2 Encounter for adjustment and management of vascular access device (principal)
CPT/HCPCS: 36592; 80048; 80076; 85025; A4216

== ENCOUNTER → 2018-10-28 12:02 | Outpatient (CLI) | payer OTHER, SELFPAY ==
[2018-10-24 09:39] VITALS: BMI 32.8
[2018-10-28 12:22] VITALS: BP 107/61; PULSE 82; RESP 16; TEMP 36.8; O2SAT 97; BMI 32.8
[2018-10-28 12:51] VITALS: BP 111/61; PULSE 82; RESP 16; TEMP 36.9; O2SAT 94
[2018-10-28 13:58] VITALS: BP 111/63; PULSE 79; RESP 18; TEMP 36.6; O2SAT 95
== END ==
PROVIDERS: Family Provider Internal Medicine; PCP Internal Medicine; Referring Provider Nurse Practitioner Adult Health; Visit Provider Nurse Practitioner Adult Health
DX: C92.00 Acute myeloblastic leukemia, not having achieved remission (principal)
CPT/HCPCS: 36430; 86644; 86900; 86965; J7040; P9037; A4216

== ENCOUNTER → 2018-10-30 14:59 | Outpatient (CLI) | payer OTHER, SELFPAY ==
[2018-10-24 09:39] VITALS: BMI 32.8
[2018-10-28 12:22] VITALS: BMI 32.8
[2018-10-30 15:44] LABS: AST(SGOT) 37 U/L (15-37); Alanine Aminotransfer ALT/SGPT 24 U/L (16-61); Albumin, Serum 2.9 g/dL (3.2-5.0); Alkaline Phosphatase 120 U/L (45-117); Anion Gap 4 (5-15); BUN 13 mg/dL (7-18); BUN/Creat Ratio 14.7 RATIO (10-20); Bilirubin, Direct 0.22 mg/dL (0.00-0.30); Chloride 102 mmol/L (98-107); Creatinine, Serum 0.88 mg/dL (0.70-1.30); EST Glomerular Filtration Rate 92 mL/min (>60); Est Glom Filt Rate - Afr Amer 111 mL/min (>60); Globulin 4.8 g/dL (2.2-4.2); Glucose 141 mg/dL (74-106); Potassium 4.2 mmol/L (3.5-5.1); Protein, Total 7.7 g/dL (6.4-8.2); Sodium Level 137 mmol/L (136-145)
[2018-10-30 16:07] LABS: Absolute Lymphocyte Count 1.09 X10^3/ul (0.83-4.51); Absolute Neutrophil Count 0.5 X10^3/uL (2.0-7.7); Basophil# 0.02 X10^3/uL; Basophil% 0.5 % (0-1); Eosinophil# 0.01 X10^3/uL; Eosinophils% 0.2 % (0-5); Hematocrit 27.3 % (40-54); Hemoglobin 8.6 g/dl (13.0-16.5); Lymphocyte # 1.09 X10^3/ul (4.0); Lymphocyte % 25.1 % (19-41); Mean Corp Hgb Conc 31.5 g/gl (32-36); Mean Corpuscular Volume 95.1 fL (80-94); Mean Platelet Vol. 8.3 fl (6.2-12.0); Monocyte# 2.66 X10^3/uL; Monocyte% 61.3 % (0-10); Neutrophil # 0.52 X10^3/uL (2.7-7.7); RBC Distribution Width CV 15.6 % (11.6-14.6); RBC Distribution Width SD 50.3 fl (35.1-43.9); Red Blood Count 2.87 M/mm3 (4.6-6.2); White Blood Count 4.3 K/mm3 (4.4-11.0)
[2018-10-30 16:18] LABS: Differential Indicated SCAN CRITERIA MET; POSITIVE COUNT YES; POSITIVE DIFFERENTIAL YES; POSITIVE MORPHOLOGY YES; Platelet Count 12 K/mm3 (150-450)
[2018-10-30 16:33] LABS: Differential Comment SEE COMMENTS; Platelet Estimate MKD DEC (ADEQ)
[2018-10-30 16:34] LABS: Anisocytosis RARE
[2018-11-03 09:40] LABS: Pathologist Review Reviewed
== END ==
PROVIDERS: Family Provider Internal Medicine; PCP Internal Medicine; Referring Provider Nurse Practitioner Adult Health; Visit Provider Nurse Practitioner Adult Health
DX: C92.00 Acute myeloblastic leukemia, not having achieved remission (principal)
CPT/HCPCS: 36415; 36592; 80048; 80076; 85025; 86900; A4216

== ENCOUNTER → 2018-10-31 13:13 | Outpatient (CLI) | payer OTHER, SELFPAY ==
[2018-10-28 12:22] VITALS: BMI 32.8
[2018-10-31 13:18] VITALS: BP 117/66; PULSE 85; RESP 16; TEMP 36.4; O2SAT 98; BMI 32.8
[2018-10-31 14:00] VITALS: BP 104/65; PULSE 78; RESP 16; TEMP 36.6; O2SAT 95
[2018-10-31 14:58] VITALS: BP 115/62; PULSE 79; RESP 18; TEMP 36.6; O2SAT 93
== END ==
PROVIDERS: Family Provider Internal Medicine; PCP Internal Medicine; Referring Provider Nurse Practitioner Adult Health; Visit Provider Nurse Practitioner Adult Health
DX: C92.00 Acute myeloblastic leukemia, not having achieved remission (principal)
CPT/HCPCS: 36430; 86644; 86900; 86965; J7040; P9037; A4216

== ENCOUNTER → 2018-11-03 12:02 | Outpatient (CLI) | payer OTHER, SELFPAY ==
[2018-10-31 13:18] VITALS: BMI 32.8
[2018-11-03 12:52] LABS: Absolute Lymphocyte Count 3.17 X10^3/ul (0.83-4.51); Absolute Neutrophil Count 0.9 X10^3/uL (2.0-7.7); Basophil# 0.01 X10^3/uL; Basophil% 0.2 % (0-1); Hematocrit 23.1 % (40-54); Hemoglobin 7.5 g/dl (13.0-16.5); Lymphocyte # 3.17 X10^3/ul (4.0); Lymphocyte % 62.4 % (19-41); Mean Corp Hgb Conc 32.5 g/gl (32-36); Mean Corpuscular Hgb 29.2 pg (27.0-32.0); Mean Corpuscular Volume 89.9 fL (80-94); Mean Platelet Vol. 10.1 fl (6.2-12.0); Monocyte# 1.01 X10^3/uL; Monocyte% 19.9 % (0-10); Neutrophil # 0.88 X10^3/uL (2.7-7.7); Neutrophil % 17.3 % (47-70); RBC Distribution Width CV 15.5 % (11.6-14.6); RBC Distribution Width SD 48.9 fl (35.1-43.9); Red Blood Count 2.57 M/mm3 (4.6-6.2); White Blood Count 5.1 K/mm3 (4.4-11.0)
[2018-11-03 13:06] LABS: AST(SGOT) 36 U/L (15-37); Alanine Aminotransfer ALT/SGPT 25 U/L (16-61); Albumin, Serum 3.1 g/dL (3.2-5.0); Alkaline Phosphatase 110 U/L (45-117); Anion Gap 5 (5-15); BUN 14 mg/dL (7-18); BUN/Creat Ratio 14.5 RATIO (10-20); Bilirubin, Direct 0.29 mg/dL (0.00-0.30); Calcium,Total 8.3 mg/dL (8.5-10.1); Chloride 103 mmol/L (98-107); Creatinine, Serum 0.97 mg/dL (0.70-1.30); EST Glomerular Filtration Rate 83 mL/min (>60); Est Glom Filt Rate - Afr Amer 100 mL/min (>60); Globulin 4.6 g/dL (2.2-4.2); Glucose 135 mg/dL (74-106); Protein, Total 7.7 g/dL (6.4-8.2); Sodium Level 137 mmol/L (136-145)
[2018-11-03 13:18] LABS: Differential Indicated SCAN CRITERIA MET; POSITIVE COUNT YES; POSITIVE DIFFERENTIAL YES; POSITIVE MORPHOLOGY YES; Platelet Count 19 K/mm3 (150-450)
[2018-11-04 12:37] LABS: Pathologist Review Reviewed
== END ==
LOC: MEDOUTP 12:02 → ONC 12:34 → MEDOUTP 12:35
PROVIDERS: Family Provider Internal Medicine; PCP Internal Medicine; Referring Provider Nurse Practitioner Adult Health; Visit Provider Nurse Practitioner Adult Health
DX: C92.00 Acute myeloblastic leukemia, not having achieved remission (principal)
CPT/HCPCS: 36415; 36592; 80048; 80076; 85025; A4216

== ENCOUNTER → 2018-11-06 09:31 | Outpatient (CLI) | payer OTHER, SELFPAY ==
[2018-10-31 13:18] VITALS: BMI 32.8
[2018-11-06 10:28] LABS: Absolute Lymphocyte Count 2.86 X10^3/ul (0.83-4.51); Absolute Neutrophil Count 0.7 X10^3/uL (2.0-7.7); Basophil# 0.01 X10^3/uL; Basophil% 0.2 % (0-1); Hematocrit 23.4 % (40-54); Hemoglobin 7.8 g/dl (13.0-16.5); Lymphocyte # 2.86 X10^3/ul (4.0); Lymphocyte % 63.7 % (19-41); Mean Corp Hgb Conc 33.3 g/gl (32-36); Mean Corpuscular Hgb 29.8 pg (27.0-32.0); Mean Corpuscular Volume 89.3 fL (80-94); Mean Platelet Vol. 9.1 fl (6.2-12.0); Monocyte# 0.91 X10^3/uL; Monocyte% 20.3 % (0-10); Neutrophil # 0.69 X10^3/uL (2.7-7.7); Neutrophil % 15.4 % (47-70); RBC Distribution Width CV 15.6 % (11.6-14.6); RBC Distribution Width SD 49.7 fl (35.1-43.9); Red Blood Count 2.62 M/mm3 (4.6-6.2); White Blood Count 4.5 K/mm3 (4.4-11.0)
[2018-11-06 10:37] LABS: BUN 16 mg/dL (7-18); EST Glomerular Filtration Rate 80 mL/min (>60); Glucose 119 mg/dL (74-106)
[2018-11-06 10:38] LABS: AST(SGOT) 26 U/L (15-37); Alanine Aminotransfer ALT/SGPT 24 U/L (16-61); Albumin, Serum 3.1 g/dL (3.2-5.0); Alkaline Phosphatase 103 U/L (45-117); Anion Gap 4 (5-15); Calcium,Total 8.2 mg/dL (8.5-10.1); Chloride 103 mmol/L (98-107); Differential Indicated SCAN CRITERIA MET; Est Glom Filt Rate - Afr Amer 97 mL/min (>60); Globulin 4.4 g/dL (2.2-4.2); POSITIVE COUNT YES; POSITIVE DIFFERENTIAL YES; POSITIVE MORPHOLOGY YES; Platelet Count 13 K/mm3 (150-450); Potassium 4.2 mmol/L (3.5-5.1); Protein, Total 7.5 g/dL (6.4-8.2); Sodium Level 137 mmol/L (136-145)
[2018-11-06 17:47] LABS: Xtra Tube EP Lab EXTRA TUBE
[2018-11-07 11:01] LABS: Pathologist Review Reviewed
== END ==
PROVIDERS: Internal Medicine; Family Provider Internal Medicine; PCP Internal Medicine; Referring Provider Nurse Practitioner Adult Health; Visit Provider Nurse Practitioner Adult Health
DX: C92.00 Acute myeloblastic leukemia, not having achieved remission (principal)
CPT/HCPCS: 36592; 80048; 80076; 85025; 86900; A4216

== ENCOUNTER → 2018-11-07 13:00 | Outpatient (CLI) | payer OTHER, SELFPAY ==
[2018-10-31 13:18] VITALS: BMI 32.8
[2018-11-07 13:23] VITALS: BP 110/63; PULSE 88; RESP 18; TEMP 36.8; O2SAT 94
[2018-11-07 14:09] VITALS: BP 111/67; PULSE 86; RESP 18; TEMP 36.6; O2SAT 96
[2018-11-07 15:17] VITALS: BP 110/59; PULSE 89; RESP 18; TEMP 36.6; O2SAT 93
== END ==
PROVIDERS: Family Provider Internal Medicine; PCP Internal Medicine; Referring Provider Nurse Practitioner Adult Health; Visit Provider Nurse Practitioner Adult Health
DX: C92.00 Acute myeloblastic leukemia, not having achieved remission (principal)
CPT/HCPCS: 36430; 86644; 86900; 86965; J7040; P9037; A4216

== ENCOUNTER → 2018-11-10 15:45 | Outpatient (CLI) | payer OTHER, SELFPAY ==
[2018-10-31 13:18] VITALS: BMI 32.8
[2018-11-10 17:08] LABS: Absolute Neutrophil Count 1.3 X10^3/uL (2.0-7.7); Basophil# 0.02 X10^3/uL; Basophil% 0.4 % (0-1); Differential Indicated SCAN CRITERIA MET; Hematocrit 20.4 % (40-54); Hemoglobin 6.8 g/dl (13.0-16.5); Lymphocyte % 49.9 % (19-41); Mean Corp Hgb Conc 33.3 g/gl (32-36); Mean Corpuscular Hgb 29.6 pg (27.0-32.0); Mean Corpuscular Volume 88.7 fL (80-94); Mean Platelet Vol. 10.5 fl (6.2-12.0); Monocyte# 1.24 X10^3/uL; Monocyte% 23.8 % (0-10); Neutrophil # 1.32 X10^3/uL (2.7-7.7); Neutrophil % 25.3 % (47-70); POSITIVE COUNT YES; POSITIVE DIFFERENTIAL NO; POSITIVE MORPHOLOGY YES; RBC Distribution Width CV 15.6 % (11.6-14.6); RBC Distribution Width SD 49.3 fl (35.1-43.9); White Blood Count 5.2 K/mm3 (4.4-11.0)
[2018-11-10 17:10] LABS: Platelet Count 19 K/mm3 (150-450)
[2018-11-10 17:34] LABS: Differential Comment SCANNED
[2018-11-10 18:00] LABS: AST(SGOT) 24 U/L (15-37); Alanine Aminotransfer ALT/SGPT 26 U/L (16-61); Albumin, Serum 3.1 g/dL (3.2-5.0); Alkaline Phosphatase 104 U/L (45-117); Anion Gap 7 (5-15); BUN 19 mg/dL (7-18); BUN/Creat Ratio 12.5 RATIO (10-20); Bilirubin, Direct 0.24 mg/dL (0.00-0.30); Calcium,Total 8.1 mg/dL (8.5-10.1); Chloride 104 mmol/L (98-107); Creatinine, Serum 1.52 mg/dL (0.70-1.30); EST Glomerular Filtration Rate 49 mL/min (>60); Est Glom Filt Rate - Afr Amer 60 mL/min (>60); Globulin 4.6 g/dL (2.2-4.2); Glucose 110 mg/dL (74-106); Potassium 4.1 mmol/L (3.5-5.1); Protein, Total 7.7 g/dL (6.4-8.2); Sodium Level 140 mmol/L (136-145)
[2018-11-11 12:26] LABS: Pathologist Review Reviewed
== END ==
PROVIDERS: Family Provider Internal Medicine; PCP Internal Medicine; Referring Provider Nurse Practitioner Adult Health; Visit Provider Nurse Practitioner Adult Health
DX: Z45.2 Encounter for adjustment and management of vascular access device (principal); C92.00 Acute myeloblastic leukemia, not having achieved remission
CPT/HCPCS: 36592; 80048; 80076; 85025; A4216

== ENCOUNTER → 2018-11-11 09:11 | Outpatient (CLI) | payer OTHER, SELFPAY ==
[2018-10-31 13:18] VITALS: BMI 32.8
[2018-11-11] VITALS (10 sets, daily range): BP systolic 88–115; BP diastolic 47–67; PULSE 79–96; RESP 16–18; TEMP 36.6–37.3; O2SAT 90–96; BMI 32.8
== END ==
PROVIDERS: Family Provider Internal Medicine; PCP Internal Medicine; Referring Provider Nurse Practitioner Adult Health; Visit Provider Nurse Practitioner Adult Health
DX: C92.00 Acute myeloblastic leukemia, not having achieved remission (principal)
CPT/HCPCS: 36430; 86644; 86850; 86900; 86920; 86922; 86965; J7040; P9037; P9040; A4216

== ENCOUNTER → 2018-11-13 09:44 | Outpatient (CLI) | payer OTHER, SELFPAY ==
[2018-10-31 13:18] VITALS: BMI 32.8
[2018-11-11 09:29] VITALS: BMI 32.8
[2018-11-13 10:33] LABS: Absolute Lymphocyte Count 0.86 X10^3/ul (0.83-4.51); Absolute Neutrophil Count 0.6 X10^3/uL (2.0-7.7); Basophil# 0.02 X10^3/uL; Basophil% 0.6 % (0-1); Hematocrit 24.7 % (40-54); Lymphocyte # 0.86 X10^3/ul (4.0); Lymphocyte % 25.9 % (19-41); Mean Corp Hgb Conc 32.4 g/gl (32-36); Mean Corpuscular Volume 89.5 fL (80-94); Mean Platelet Vol. 10.5 fl (6.2-12.0); Monocyte# 1.82 X10^3/uL; Monocyte% 54.8 % (0-10); Neutrophil % 18.1 % (47-70); Platelet Count 18 K/mm3 (150-450); RBC Distribution Width CV 15.8 % (11.6-14.6); RBC Distribution Width SD 50.5 fl (35.1-43.9); Red Blood Count 2.76 M/mm3 (4.6-6.2); White Blood Count 3.3 K/mm3 (4.4-11.0)
[2018-11-13 10:34] LABS: Differential Indicated SCAN CRITERIA MET; POSITIVE COUNT YES; POSITIVE DIFFERENTIAL YES; POSITIVE MORPHOLOGY YES
[2018-11-13 10:39] LABS: AST(SGOT) 28 U/L (15-37); Alanine Aminotransfer ALT/SGPT 23 U/L (16-61); Albumin, Serum 3.1 g/dL (3.2-5.0); Alkaline Phosphatase 100 U/L (45-117); Anion Gap 6 (5-15); BUN 15 mg/dL (7-18); BUN/Creat Ratio 12.3 RATIO (10-20); Bilirubin, Direct 0.29 mg/dL (0.00-0.30); Chloride 104 mmol/L (98-107); Creatinine, Serum 1.22 mg/dL (0.70-1.30); EST Glomerular Filtration Rate 63 mL/min (>60); Est Glom Filt Rate - Afr Amer 77 mL/min (>60); Globulin 4.5 g/dL (2.2-4.2); Glucose 156 mg/dL (74-106); Potassium 4.1 mmol/L (3.5-5.1); Protein, Total 7.6 g/dL (6.4-8.2); Sodium Level 139 mmol/L (136-145)
[2018-11-13 11:04] LABS: Hypochromasia 1+; Platelet Estimate MKD DEC (ADEQ)
[2018-11-13 15:22] LABS: Pathologist Review Reviewed
[2018-11-13 18:00] LABS: Xtra Tube EP Lab EXTRA TUBE
== END ==
PROVIDERS: Family Provider Internal Medicine; PCP Internal Medicine; Referring Provider Nurse Practitioner Adult Health; Visit Provider Nurse Practitioner Adult Health
DX: C92.00 Acute myeloblastic leukemia, not having achieved remission (principal)
CPT/HCPCS: 36592; 80048; 80076; 85025; 86850; 86900; 86920; A4216

== ENCOUNTER → 2018-11-14 09:14 | Outpatient (CLI) | payer OTHER, SELFPAY ==
[2018-11-11 09:29] VITALS: BMI 32.8
[2018-11-14] VITALS (7 sets, daily range): BP systolic 96–133; BP diastolic 53–75; PULSE 72–90; RESP 16–18; TEMP 36.4–37.1; O2SAT 93–98; BMI 32.8
== END ==
PROVIDERS: Family Provider Internal Medicine; PCP Internal Medicine; Referring Provider Nurse Practitioner Adult Health; Visit Provider Nurse Practitioner Adult Health
DX: C92.00 Acute myeloblastic leukemia, not having achieved remission (principal)
CPT/HCPCS: 36430; 86644; 86850; 86900; 86920; 86965; J7040; P9037; P9040; A4216

== ENCOUNTER → 2018-11-20 09:46 | Outpatient (CLI) | payer OTHER, SELFPAY ==
[2018-11-11 09:29] VITALS: BMI 32.8
[2018-11-14 09:21] VITALS: BMI 32.8
[2018-11-20 10:56] LABS: Absolute Lymphocyte Count 1.86 X10^3/ul (0.83-4.51); Absolute Neutrophil Count 0.9 X10^3/uL (2.0-7.7); Basophil# 0.02 X10^3/uL; Basophil% 0.5 % (0-1); Hematocrit 21.9 % (40-54); Hemoglobin 7.2 g/dl (13.0-16.5); Lymphocyte # 1.86 X10^3/ul (4.0); Lymphocyte % 50.5 % (19-41); Mean Corp Hgb Conc 32.9 g/gl (32-36); Mean Corpuscular Hgb 29.4 pg (27.0-32.0); Mean Corpuscular Volume 89.4 fL (80-94); Mean Platelet Vol. 9.4 fl (6.2-12.0); Monocyte# 0.92 X10^3/uL; Neutrophil # 0.86 X10^3/uL (2.7-7.7); Neutrophil % 23.5 % (47-70); RBC Distribution Width CV 15.5 % (11.6-14.6); RBC Distribution Width SD 50.5 fl (35.1-43.9); Red Blood Count 2.45 M/mm3 (4.6-6.2); White Blood Count 3.7 K/mm3 (4.4-11.0)
[2018-11-20 11:03] LABS: Differential Indicated SCAN CRITERIA MET; POSITIVE COUNT YES; POSITIVE DIFFERENTIAL YES; POSITIVE MORPHOLOGY YES; Platelet Count 17 K/mm3 (150-450)
[2018-11-20 11:04] LABS: AST(SGOT) 28 U/L (15-37); Alanine Aminotransfer ALT/SGPT 19 U/L (16-61); Albumin, Serum 3.2 g/dL (3.2-5.0); Alkaline Phosphatase 104 U/L (45-117); Anion Gap 5 (5-15); BUN 12 mg/dL (7-18); BUN/Creat Ratio 10.8 RATIO (10-20); Bilirubin, Direct 0.28 mg/dL (0.00-0.30); Calcium,Total 8.1 mg/dL (8.5-10.1); Chloride 101 mmol/L (98-107); Creatinine, Serum 1.11 mg/dL (0.70-1.30); EST Glomerular Filtration Rate 71 mL/min (>60); Est Glom Filt Rate - Afr Amer 86 mL/min (>60); Globulin 4.6 g/dL (2.2-4.2); Glucose 146 mg/dL (74-106); Potassium 3.7 mmol/L (3.5-5.1); Protein, Total 7.8 g/dL (6.4-8.2); Sodium Level 138 mmol/L (136-145); Uric Acid 8.4 mg/dL (3.5-7.2)
[2018-11-20 15:17] LABS: Pathologist Review Reviewed
== END ==
PROVIDERS: Family Provider Internal Medicine; PCP Internal Medicine; Referring Provider Nurse Practitioner Adult Health; Visit Provider Nurse Practitioner Adult Health
DX: C92.00 Acute myeloblastic leukemia, not having achieved remission (principal)
CPT/HCPCS: 36592; 80048; 80076; 84550; 85025; A4216

== ENCOUNTER → 2018-11-21 09:10 | Outpatient (CLI) | payer OTHER, SELFPAY ==
[2018-11-14 09:21] VITALS: BMI 32.8
[2018-11-21] VITALS (10 sets, daily range): BP systolic 104–130; BP diastolic 58–70; PULSE 72–88; RESP 16–18; TEMP 36.8–37.1; O2SAT 93–95; BMI 32.8
== END ==
PROVIDERS: Family Provider Internal Medicine; PCP Internal Medicine; Referring Provider Nurse Practitioner Adult Health; Visit Provider Nurse Practitioner Adult Health
DX: C92.00 Acute myeloblastic leukemia, not having achieved remission (principal)
CPT/HCPCS: 36430; 86644; 86850; 86870; 86880; 86900; 86902; 86905; 86920; 86922; 86965; J7040; P9037; P9040; A4216

== ENCOUNTER → 2018-11-24 14:58 | Outpatient (CLI) | payer OTHER, SELFPAY ==
[2018-11-21 09:51] VITALS: BMI 32.8
[2018-11-24 15:42] LABS: AST(SGOT) 31 U/L (15-37); Alanine Aminotransfer ALT/SGPT 18 U/L (16-61); Albumin, Serum 3.3 g/dL (3.2-5.0); Alkaline Phosphatase 101 U/L (45-117); Anion Gap 5 (5-15); BUN 17 mg/dL (7-18); BUN/Creat Ratio 12.4 RATIO (10-20); Bilirubin, Direct 0.35 mg/dL (0.00-0.30); Calcium,Total 8.3 mg/dL (8.5-10.1); Chloride 104 mmol/L (98-107); Creatinine, Serum 1.37 mg/dL (0.70-1.30); EST Glomerular Filtration Rate 56 mL/min (>60); Est Glom Filt Rate - Afr Amer 67 mL/min (>60); Globulin 4.9 g/dL (2.2-4.2); Glucose 132 mg/dL (74-106); Potassium 4.2 mmol/L (3.5-5.1); Protein, Total 8.2 g/dL (6.4-8.2); Sodium Level 140 mmol/L (136-145)
[2018-11-24 15:44] LABS: Absolute Lymphocyte Count 1.92 X10^3/ul (0.83-4.51); Absolute Neutrophil Count 0.9 X10^3/uL (2.0-7.7); Basophil# 0.02 X10^3/uL; Basophil% 0.5 % (0-1); Hematocrit 26.2 % (40-54); Hemoglobin 8.7 g/dl (13.0-16.5); Lymphocyte # 1.92 X10^3/ul (4.0); Lymphocyte % 49.9 % (19-41); Mean Corp Hgb Conc 33.2 g/gl (32-36); Mean Corpuscular Hgb 29.2 pg (27.0-32.0); Mean Corpuscular Volume 87.9 fL (80-94); Monocyte# 0.97 X10^3/uL; Monocyte% 25.2 % (0-10); Neutrophil # 0.91 X10^3/uL (2.7-7.7); Neutrophil % 23.6 % (47-70); RBC Distribution Width CV 15.5 % (11.6-14.6); RBC Distribution Width SD 49.8 fl (35.1-43.9); Red Blood Count 2.98 M/mm3 (4.6-6.2); White Blood Count 3.9 K/mm3 (4.4-11.0)
[2018-11-24 15:48] LABS: Differential Indicated SCAN CRITERIA MET; POSITIVE COUNT YES; POSITIVE DIFFERENTIAL YES; POSITIVE MORPHOLOGY YES; Platelet Count 18 K/mm3 (150-450)
[2018-11-24 16:04] LABS: Differential Comment SCANNED
[2018-11-25 14:11] LABS: Pathologist Review Reviewed
== END ==
PROVIDERS: Family Provider Internal Medicine; PCP Internal Medicine; Referring Provider Nurse Practitioner Adult Health; Visit Provider Nurse Practitioner Adult Health
DX: C92.00 Acute myeloblastic leukemia, not having achieved remission (principal)
CPT/HCPCS: 36592; 80048; 80076; 85025; A4216

== ENCOUNTER → 2018-11-25 13:11 | Outpatient (CLI) | payer OTHER, SELFPAY ==
[2018-11-21 09:51] VITALS: BMI 32.8
[2018-11-25 13:22] VITALS: BP 116/69; PULSE 73; RESP 18; TEMP 36.6; O2SAT 95; BMI 32.8
[2018-11-25 13:48] VITALS: BP 110/70; PULSE 74; RESP 18; TEMP 36.6; O2SAT 96
[2018-11-25 15:20] VITALS: BP 121/68; PULSE 80; RESP 16; TEMP 36.5; O2SAT 94
== END ==
PROVIDERS: Family Provider Internal Medicine; PCP Internal Medicine; Referring Provider Nurse Practitioner Adult Health; Visit Provider Nurse Practitioner Adult Health
DX: C92.00 Acute myeloblastic leukemia, not having achieved remission (principal)
CPT/HCPCS: 36430; 86644; 86900; 86965; J7040; P9037; A4216

== ENCOUNTER → 2018-11-27 10:08 | Outpatient (CLI) | payer OTHER, SELFPAY ==
[2018-11-21 09:51] VITALS: BMI 32.8
[2018-11-25 13:22] VITALS: BMI 32.8
[2018-11-27 11:14] LABS: Absolute Lymphocyte Count 1.03 X10^3/ul (0.83-4.51); Absolute Neutrophil Count 0.9 X10^3/uL (2.0-7.7); Basophil# 0.01 X10^3/uL; Basophil% 0.3 % (0-1); Eosinophil# 0.01 X10^3/uL; Eosinophils% 0.3 % (0-5); Hematocrit 23.1 % (40-54); Hemoglobin 7.6 g/dl (13.0-16.5); Lymphocyte # 1.03 X10^3/ul (4.0); Lymphocyte % 26.4 % (19-41); Mean Corp Hgb Conc 32.9 g/gl (32-36); Mean Corpuscular Hgb 28.9 pg (27.0-32.0); Mean Corpuscular Volume 87.8 fL (80-94); Mean Platelet Vol. 9.3 fl (6.2-12.0); Monocyte# 1.89 X10^3/uL; Monocyte% 48.5 % (0-10); Neutrophil # 0.94 X10^3/uL (2.7-7.7); RBC Distribution Width CV 15.6 % (11.6-14.6); RBC Distribution Width SD 50.5 fl (35.1-43.9); Red Blood Count 2.63 M/mm3 (4.6-6.2); White Blood Count 3.9 K/mm3 (4.4-11.0)
[2018-11-27 11:15] LABS: POSITIVE COUNT YES; POSITIVE DIFFERENTIAL YES; POSITIVE MORPHOLOGY YES; Platelet Count 34 K/mm3 (150-450)
[2018-11-27 11:16] LABS: Differential Indicated SCAN CRITERIA MET
[2018-11-27 11:41] LABS: Platelet Estimate MKD DEC (ADEQ)
[2018-11-27 11:42] LABS: Red Cell Morphology NORM C+C NORMAL (NORM C&C)
[2018-11-27 18:16] LABS: Xtra Tube EP Lab EXTRA TUBE
[2018-12-01 12:56] LABS: Pathologist Review Reviewed
== END ==
PROVIDERS: Family Provider Internal Medicine; PCP Internal Medicine; Referring Provider Nurse Practitioner Adult Health; Visit Provider Nurse Practitioner Adult Health
DX: C92.00 Acute myeloblastic leukemia, not having achieved remission (principal)
CPT/HCPCS: 36592; 85025

== ENCOUNTER → 2018-11-28 12:50 | Outpatient (CLI) | payer OTHER, SELFPAY ==
[2018-11-25 13:22] VITALS: BMI 32.8
[2018-11-28 13:01] VITALS: BP 107/62; PULSE 84; RESP 16; TEMP 36.5; O2SAT 96; BMI 32.8
[2018-11-28 13:36] VITALS: BP 100/59; PULSE 80; RESP 16; TEMP 36.9; O2SAT 95
[2018-11-28 14:36] VITALS: BP 108/59; PULSE 78; RESP 16; TEMP 37.1; O2SAT 96
[2018-11-28 15:09] VITALS: BP 105/63; PULSE 74; RESP 16; TEMP 36.7; O2SAT 96
== END ==
PROVIDERS: Family Provider Internal Medicine; PCP Internal Medicine
DX: C92.00 Acute myeloblastic leukemia, not having achieved remission (principal)
CPT/HCPCS: 36430; 86850; 86900; J7040; P9040; A4216

== ENCOUNTER → 2018-12-01 13:43 | Outpatient (CLI) | payer OTHER, SELFPAY ==
[2018-11-28 13:01] VITALS: BMI 32.8
[2018-12-01 14:34] LABS: Absolute Lymphocyte Count 1.91 X10^3/ul (0.83-4.51); Absolute Neutrophil Count 1.3 X10^3/uL (2.0-7.7); Basophil# 0.01 X10^3/uL; Basophil% 0.2 % (0-1); Hematocrit 25.2 % (40-54); Hemoglobin 8.3 g/dl (13.0-16.5); Lymphocyte # 1.91 X10^3/ul (4.0); Lymphocyte % 46.2 % (19-41); Mean Corp Hgb Conc 32.9 g/gl (32-36); Mean Corpuscular Hgb 29.1 pg (27.0-32.0); Mean Corpuscular Volume 88.4 fL (80-94); Mean Platelet Vol. 9.1 fl (6.2-12.0); Monocyte# 0.88 X10^3/uL; Monocyte% 21.3 % (0-10); Neutrophil # 1.32 X10^3/uL (2.7-7.7); Neutrophil % 32.1 % (47-70); RBC Distribution Width CV 15.6 % (11.6-14.6); RBC Distribution Width SD 49.8 fl (35.1-43.9); Red Blood Count 2.85 M/mm3 (4.6-6.2); White Blood Count 4.1 K/mm3 (4.4-11.0)
[2018-12-01 14:38] LABS: AST(SGOT) 27 U/L (15-37); Alanine Aminotransfer ALT/SGPT 20 U/L (16-61); Albumin, Serum 3.3 g/dL (3.2-5.0); Alkaline Phosphatase 107 U/L (45-117); Anion Gap 7 (5-15); BUN 18 mg/dL (7-18); BUN/Creat Ratio 14.1 RATIO (10-20); Bilirubin, Direct 0.27 mg/dL (0.00-0.30); Calcium,Total 8.2 mg/dL (8.5-10.1); Chloride 102 mmol/L (98-107); Creatinine, Serum 1.28 mg/dL (0.70-1.30); EST Glomerular Filtration Rate 60 mL/min (>60); Est Glom Filt Rate - Afr Amer 73 mL/min (>60); Globulin 4.8 g/dL (2.2-4.2); Glucose 119 mg/dL (74-106); Potassium 4.3 mmol/L (3.5-5.1); Protein, Total 8.1 g/dL (6.4-8.2); Sodium Level 137 mmol/L (136-145)
[2018-12-01 14:44] LABS: POSITIVE COUNT YES; POSITIVE DIFFERENTIAL NO; POSITIVE MORPHOLOGY YES; Platelet Count 25 K/mm3 (150-450)
[2018-12-01 14:45] LABS: Differential Indicated SCAN CRITERIA MET
[2018-12-01 15:04] LABS: Hypochromasia 2+; Platelet Estimate MKD DEC (ADEQ)
[2018-12-01 22:18] LABS: Xtra Tube EP Lab EXTRA TUBE
[2018-12-02 14:45] LABS: Pathologist Review Reviewed
== END ==
PROVIDERS: Family Provider Internal Medicine; PCP Internal Medicine; Referring Provider Nurse Practitioner Adult Health; Visit Provider Nurse Practitioner Adult Health
DX: C92.00 Acute myeloblastic leukemia, not having achieved remission (principal)
CPT/HCPCS: 36592; 80048; 80076; 85025; A4216

== ENCOUNTER → 2018-12-04 14:47 | Outpatient (CLI) | payer OTHER, SELFPAY ==
[2018-11-28 13:01] VITALS: BMI 32.8
[2018-12-04 15:52] LABS: Absolute Lymphocyte Count 0.82 X10^3/ul (0.83-4.51); Absolute Neutrophil Count 1.1 X10^3/uL (2.0-7.7); Basophil# 0.01 X10^3/uL; Basophil% 0.3 % (0-1); Eosinophil# 0.01 X10^3/uL; Eosinophils% 0.3 % (0-5); Hematocrit 24.5 % (40-54); Hemoglobin 8.1 g/dl (13.0-16.5); Lymphocyte # 0.82 X10^3/ul (4.0); Lymphocyte % 20.9 % (19-41); Mean Corp Hgb Conc 33.1 g/gl (32-36); Mean Corpuscular Hgb 29.1 pg (27.0-32.0); Mean Corpuscular Volume 88.1 fL (80-94); Mean Platelet Vol. 8.8 fl (6.2-12.0); Monocyte# 1.96 X10^3/uL; Monocyte% 49.9 % (0-10); Neutrophil # 1.08 X10^3/uL (2.7-7.7); Neutrophil % 27.3 % (47-70); RBC Distribution Width CV 15.6 % (11.6-14.6); RBC Distribution Width SD 50.2 fl (35.1-43.9); Red Blood Count 2.78 M/mm3 (4.6-6.2); White Blood Count 3.9 K/mm3 (4.4-11.0)
[2018-12-04 15:56] LABS: Differential Indicated SCAN CRITERIA MET; POSITIVE COUNT YES; POSITIVE DIFFERENTIAL YES; POSITIVE MORPHOLOGY NO; Platelet Count 25 K/mm3 (150-450)
[2018-12-04 17:36] LABS: Differential Comment SCANNED; Platelet Estimate MKD DEC (ADEQ)
[2018-12-04 23:02] LABS: Xtra Tube EP Lab EXTRA TUBE
[2018-12-05 14:11] LABS: Pathologist Review Reviewed
== END ==
PROVIDERS: Family Provider Internal Medicine; PCP Internal Medicine; Referring Provider Nurse Practitioner Adult Health; Visit Provider Nurse Practitioner Adult Health
DX: C92.00 Acute myeloblastic leukemia, not having achieved remission (principal)
CPT/HCPCS: 85025; A4216

== ENCOUNTER → 2018-12-08 13:49 | Outpatient (CLI) | payer OTHER, SELFPAY ==
[2018-11-28 13:01] VITALS: BMI 32.8
[2018-12-08 14:53] LABS: AST(SGOT) 27 U/L (15-37); Alanine Aminotransfer ALT/SGPT 20 U/L (16-61); Albumin, Serum 3.4 g/dL (3.2-5.0); Alkaline Phosphatase 115 U/L (45-117); Anion Gap 6 (5-15); BUN 26 mg/dL (7-18); BUN/Creat Ratio 17.7 RATIO (10-20); Bilirubin, Direct 0.29 mg/dL (0.00-0.30); Calcium,Total 8.3 mg/dL (8.5-10.1); Chloride 103 mmol/L (98-107); Creatinine, Serum 1.47 mg/dL (0.70-1.30); EST Glomerular Filtration Rate 51 mL/min (>60); Est Glom Filt Rate - Afr Amer 62 mL/min (>60); Globulin 5.3 g/dL (2.2-4.2); Glucose 125 mg/dL (74-106); Potassium 4.3 mmol/L (3.5-5.1); Protein, Total 8.7 g/dL (6.4-8.2); Sodium Level 137 mmol/L (136-145)
[2018-12-08 15:25] LABS: Absolute Lymphocyte Count 0.94 X10^3/ul (0.83-4.51); Absolute Neutrophil Count 0.8 X10^3/uL (2.0-7.7); Basophil# 0.01 X10^3/uL; Basophil% 0.3 % (0-1); Eosinophil# 0.01 X10^3/uL; Eosinophils% 0.3 % (0-5); Hematocrit 22.2 % (40-54); Hemoglobin 7.3 g/dl (13.0-16.5); Lymphocyte # 0.94 X10^3/ul (4.0); Mean Corp Hgb Conc 32.9 g/gl (32-36); Mean Corpuscular Hgb 28.7 pg (27.0-32.0); Mean Corpuscular Volume 87.4 fL (80-94); Mean Platelet Vol. 9.5 fl (6.2-12.0); Monocyte# 1.27 X10^3/uL; Monocyte% 41.9 % (0-10); Neutrophil % 26.5 % (47-70); RBC Distribution Width CV 15.5 % (11.6-14.6); RBC Distribution Width SD 49.2 fl (35.1-43.9); Red Blood Count 2.54 M/mm3 (4.6-6.2)
[2018-12-08 15:30] LABS: Differential Indicated SCAN CRITERIA MET; POSITIVE COUNT YES; POSITIVE DIFFERENTIAL YES; POSITIVE MORPHOLOGY YES; Platelet Count 39 K/mm3 (150-450)
[2018-12-08 16:07] LABS: Platelet Estimate MKD DEC (ADEQ)
[2018-12-08 16:08] LABS: Differential Comment SCANNED
[2018-12-08 22:26] LABS: Xtra Tube EP Lab EXTRA TUBE
[2018-12-10 16:00] LABS: Pathologist Review Reviewed
== END ==
PROVIDERS: Nurse Practitioner Adult Health; Family Provider Internal Medicine; PCP Internal Medicine
DX: Z45.2 Encounter for adjustment and management of vascular access device (principal); C92.00 Acute myeloblastic leukemia, not having achieved remission
CPT/HCPCS: 36592; 80048; 80076; 84550; 85025; A4216

== ENCOUNTER → 2018-12-09 12:29 | Outpatient (CLI) | payer OTHER, SELFPAY ==
[2018-11-28 13:01] VITALS: BMI 32.8
[2018-12-09 12:40] VITALS: BP 110/62; PULSE 88; RESP 16; TEMP 36.8; O2SAT 96; BMI 32.8
[2018-12-09 13:01] VITALS: BP 92/57; PULSE 81; RESP 18; TEMP 36.6; O2SAT 96
[2018-12-09 14:01] VITALS: BP 106/60
[2018-12-09 14:25] VITALS: BP 111/64; PULSE 76; RESP 16; TEMP 36.6; O2SAT 96
[2018-12-09 15:13] VITALS: BP 104/64; PULSE 75; RESP 18; TEMP 36.4; O2SAT 96
== END ==
PROVIDERS: Family Provider Internal Medicine; PCP Internal Medicine
DX: Z45.2 Encounter for adjustment and management of vascular access device (principal); C92.00 Acute myeloblastic leukemia, not having achieved remission
CPT/HCPCS: 36430; 86644; 86850; 86870; 86880; 86900; 86902; 86920; 86922; J7040; P9040; A4216

== ENCOUNTER → 2018-12-11 13:55 | Outpatient (CLI) | payer OTHER, SELFPAY ==
[2018-11-28 13:01] VITALS: BMI 32.8
[2018-12-09 12:40] VITALS: BMI 32.8
[2018-12-11 14:40] LABS: Absolute Lymphocyte Count 1.04 X10^3/ul (0.83-4.51); Absolute Neutrophil Count 0.8 X10^3/uL (2.0-7.7); Basophil# 0.01 X10^3/uL; Basophil% 0.3 % (0-1); Hematocrit 23.5 % (40-54); Hemoglobin 7.8 g/dl (13.0-16.5); Lymphocyte # 1.04 X10^3/ul (4.0); Lymphocyte % 34.8 % (19-41); Mean Corp Hgb Conc 33.2 g/gl (32-36); Mean Corpuscular Hgb 28.5 pg (27.0-32.0); Mean Corpuscular Volume 85.8 fL (80-94); Mean Platelet Vol. 8.7 fl (6.2-12.0); Monocyte# 1.17 X10^3/uL; Monocyte% 39.1 % (0-10); Neutrophil # 0.77 X10^3/uL (2.7-7.7); Neutrophil % 25.8 % (47-70); RBC Distribution Width CV 17.2 % (11.6-14.6); RBC Distribution Width SD 53.8 fl (35.1-43.9); Red Blood Count 2.74 M/mm3 (4.6-6.2)
[2018-12-11 14:43] LABS: Differential Indicated SCAN CRITERIA MET; POSITIVE COUNT YES; POSITIVE DIFFERENTIAL YES; POSITIVE MORPHOLOGY YES; Platelet Count 32 K/mm3 (150-450)
[2018-12-12 14:22] LABS: Pathologist Review Reviewed
== END ==
PROVIDERS: Family Provider Internal Medicine; PCP Internal Medicine
DX: Z45.2 Encounter for adjustment and management of vascular access device (principal); C92.00 Acute myeloblastic leukemia, not having achieved remission
CPT/HCPCS: 36592; 85025; 86850; 86870; 86880; 86900; 86920; 86922; A4216

== ENCOUNTER → 2018-12-12 12:08 | Outpatient (CLI) | payer OTHER, SELFPAY ==
[2018-12-09 12:40] VITALS: BMI 32.8
[2018-12-12 13:05] VITALS: BP 112/60; PULSE 89; RESP 16; TEMP 36.6; O2SAT 97; BMI 32.8
[2018-12-12 13:30] VITALS: BP 113/58; PULSE 90; RESP 16; TEMP 36.9; O2SAT 97
[2018-12-12 14:30] VITALS: BP 113/62; PULSE 83; RESP 16; TEMP 36.7; O2SAT 96
[2018-12-12 15:36] VITALS: BP 112/58; PULSE 83; RESP 16; TEMP 36.8; O2SAT 96
== END ==
PROVIDERS: Family Provider Internal Medicine; PCP Internal Medicine
DX: Z45.2 Encounter for adjustment and management of vascular access device (principal); C92.00 Acute myeloblastic leukemia, not having achieved remission
CPT/HCPCS: 36430; 86644; 86850; 86870; 86880; 86900; 86920; 86922; J7040; P9040; A4216

== ENCOUNTER → 2018-12-15 14:00 | Outpatient (CLI) | payer OTHER, SELFPAY ==
[2018-12-09 12:40] VITALS: BMI 32.8
[2018-12-12 13:05] VITALS: BMI 32.8
[2018-12-15 14:38] LABS: Absolute Lymphocyte Count 1.13 X10^3/ul (0.83-4.51); Absolute Neutrophil Count 0.5 X10^3/uL (2.0-7.7); Basophil# 0.01 X10^3/uL; Basophil% 0.4 % (0-1); Hematocrit 25.4 % (40-54); Hemoglobin 8.4 g/dl (13.0-16.5); Lymphocyte # 1.13 X10^3/ul (4.0); Lymphocyte % 44.1 % (19-41); Mean Corp Hgb Conc 33.1 g/gl (32-36); Mean Corpuscular Hgb 28.7 pg (27.0-32.0); Mean Corpuscular Volume 86.7 fL (80-94); Mean Platelet Vol. 8.5 fl (6.2-12.0); Monocyte# 0.91 X10^3/uL; Monocyte% 35.5 % (0-10); Neutrophil # 0.49 X10^3/uL (2.7-7.7); Neutrophil % 19.2 % (47-70); RBC Distribution Width CV 15.7 % (11.6-14.6); Red Blood Count 2.93 M/mm3 (4.6-6.2); White Blood Count 2.6 K/mm3 (4.4-11.0)
[2018-12-15 14:45] LABS: AST(SGOT) 29 U/L (15-37); Alanine Aminotransfer ALT/SGPT 22 U/L (16-61); Albumin, Serum 3.3 g/dL (3.2-5.0); Alkaline Phosphatase 116 U/L (45-117); Anion Gap 4 (5-15); BUN 13 mg/dL (7-18); BUN/Creat Ratio 11.5 RATIO (10-20); Bilirubin, Direct 0.28 mg/dL (0.00-0.30); Calcium,Total 8.1 mg/dL (8.5-10.1); Chloride 102 mmol/L (98-107); Creatinine, Serum 1.13 mg/dL (0.70-1.30); EST Glomerular Filtration Rate 69 mL/min (>60); Est Glom Filt Rate - Afr Amer 84 mL/min (>60); Glucose 154 mg/dL (74-106); Potassium 3.8 mmol/L (3.5-5.1); Protein, Total 8.3 g/dL (6.4-8.2); Sodium Level 134 mmol/L (136-145)
[2018-12-15 14:46] LABS: Differential Indicated SCAN CRITERIA MET; POSITIVE COUNT YES; POSITIVE DIFFERENTIAL YES; POSITIVE MORPHOLOGY NO; Platelet Count 33 K/mm3 (150-450)
[2018-12-16 15:25] LABS: Pathologist Review Reviewed
== END ==
PROVIDERS: Family Provider Internal Medicine; PCP Internal Medicine; Referring Provider Nurse Practitioner Adult Health; Visit Provider Nurse Practitioner Adult Health
DX: C92.00 Acute myeloblastic leukemia, not having achieved remission (principal); Z45.2 Encounter for adjustment and management of vascular access device
CPT/HCPCS: 36592; 80048; 80076; 84550; 85025; A4216

== ENCOUNTER → 2018-12-18 13:57 | Outpatient (CLI) | payer OTHER, SELFPAY ==
[2018-12-09 12:40] VITALS: BMI 32.8
[2018-12-12 13:05] VITALS: BMI 32.8
[2018-12-18 14:27] LABS: Basophil% 0.4 % (0-1); Differential Indicated SCAN CRITERIA MET; Lymphocyte % 38.9 % (19-41); Mean Corp Hgb Conc 33.3 g/gl (32-36); Mean Corpuscular Hgb 28.9 pg (27.0-32.0); Mean Corpuscular Volume 86.6 fL (80-94); Monocyte% 41.5 % (0-10); Neutrophil % 19.2 % (47-70); POSITIVE COUNT YES; POSITIVE DIFFERENTIAL YES; POSITIVE MORPHOLOGY YES; RBC Distribution Width CV 15.3 % (11.6-14.6); RBC Distribution Width SD 48.8 fl (35.1-43.9); Red Blood Count 2.77 M/mm3 (4.6-6.2); White Blood Count 2.7 K/mm3 (4.4-11.0)
[2018-12-18 14:28] LABS: Absolute Lymphocyte Count 1.03 X10^3/ul (0.83-4.51); Absolute Neutrophil Count 0.5 X10^3/uL (2.0-7.7); Basophil# 0.01 X10^3/uL; Lymphocyte # 1.03 X10^3/ul (4.0); Neutrophil # 0.51 X10^3/uL (2.7-7.7)
[2018-12-18 14:36] LABS: Platelet Count 41 K/mm3 (150-450)
[2018-12-18 14:37] LABS: AST(SGOT) 28 U/L (15-37); Alanine Aminotransfer ALT/SGPT 28 U/L (16-61); Albumin, Serum 3.3 g/dL (3.2-5.0); Alkaline Phosphatase 113 U/L (45-117); Anion Gap 3 (5-15); BUN 14 mg/dL (7-18); Calcium,Total 8.4 mg/dL (8.5-10.1); Chloride 101 mmol/L (98-107); Creatinine, Serum 1.17 mg/dL (0.70-1.30); EST Glomerular Filtration Rate 67 mL/min (>60); Est Glom Filt Rate - Afr Amer 81 mL/min (>60); Globulin 4.9 g/dL (2.2-4.2); Glucose 135 mg/dL (74-106); Potassium 4.1 mmol/L (3.5-5.1); Protein, Total 8.2 g/dL (6.4-8.2); Sodium Level 134 mmol/L (136-145); Uric Acid 6.8 mg/dL (3.5-7.2)
[2018-12-18 14:46] LABS: Differential Comment SCANNED
[2018-12-18 22:14] LABS: Xtra Tube EP Lab EXTRA TUBE
[2018-12-22 14:37] LABS: Pathologist Review Reviewed
== END ==
PROVIDERS: Family Provider Internal Medicine; PCP Internal Medicine; Referring Provider Nurse Practitioner Adult Health; Visit Provider Nurse Practitioner Adult Health
DX: C92.00 Acute myeloblastic leukemia, not having achieved remission (principal); Z45.2 Encounter for adjustment and management of vascular access device
CPT/HCPCS: 36592; 80048; 80076; 84550; 85025; A4216

== ENCOUNTER → 2018-12-19 10:06 | Outpatient (CLI) | payer OTHER, SELFPAY ==
[2018-12-12 13:05] VITALS: BMI 32.8
[2018-12-19 10:16] VITALS: BP 112/64; PULSE 78; RESP 16; TEMP 36.7; O2SAT 95; BMI 32.8
[2018-12-19 10:56] VITALS: BP 116/67; PULSE 78; RESP 16; TEMP 36.9; O2SAT 95
[2018-12-19 11:56] VITALS: BP 126/71; PULSE 73; RESP 16; TEMP 36.7; O2SAT 96
[2018-12-19 12:55] VITALS: BP 115/58; PULSE 86; RESP 16; TEMP 37; O2SAT 96
== END ==
PROVIDERS: Family Provider Internal Medicine; PCP Internal Medicine
DX: C92.00 Acute myeloblastic leukemia, not having achieved remission (principal)
CPT/HCPCS: 36430; 86850; 86870; 86880; 86900; 86902; 86920; 86922; J7040; P9040; A4216

== ENCOUNTER → 2018-12-25 13:56 | Outpatient (CLI) | payer OTHER, SELFPAY ==
[2018-12-19 10:16] VITALS: BMI 32.8
[2018-12-25 14:39] LABS: Absolute Lymphocyte Count 1.24 X10^3/ul (0.83-4.51); Absolute Neutrophil Count 0.6 X10^3/uL (2.0-7.7); Basophil# 0.01 X10^3/uL; Basophil% 0.3 % (0-1); Hematocrit 23.4 % (40-54); Hemoglobin 7.3 g/dl (13.0-16.5); Lymphocyte # 1.24 X10^3/ul (4.0); Lymphocyte % 43.2 % (19-41); Mean Corp Hgb Conc 31.2 g/gl (32-36); Mean Corpuscular Hgb 27.8 pg (27.0-32.0); Mean Platelet Vol. 8.7 fl (6.2-12.0); Monocyte# 0.95 X10^3/uL; Monocyte% 33.1 % (0-10); Neutrophil # 0.63 X10^3/uL (2.7-7.7); Platelet Count 61 K/mm3 (150-450); RBC Distribution Width CV 14.9 % (11.6-14.6); RBC Distribution Width SD 46.1 fl (35.1-43.9); Red Blood Count 2.63 M/mm3 (4.6-6.2); White Blood Count 2.9 K/mm3 (4.4-11.0)
[2018-12-25 14:40] LABS: Differential Indicated SCAN CRITERIA MET; POSITIVE COUNT YES; POSITIVE DIFFERENTIAL YES; POSITIVE MORPHOLOGY NO
[2018-12-25 15:01] LABS: Hypochromasia 2+; Platelet Estimate MKD DEC (ADEQ)
== END ==
PROVIDERS: Family Provider Internal Medicine; PCP Internal Medicine; Referring Provider Nurse Practitioner Adult Health; Visit Provider Nurse Practitioner Adult Health
DX: C92.00 Acute myeloblastic leukemia, not having achieved remission (principal)
CPT/HCPCS: 85025; A4216

== ENCOUNTER → 2018-12-26 09:44 | Outpatient (CLI) | payer OTHER, SELFPAY ==
[2018-12-19 10:16] VITALS: BMI 32.8
[2018-12-26 09:49] VITALS: BP 119/80; PULSE 99; RESP 16; TEMP 37.7; O2SAT 96; BMI 32.8
[2018-12-26 10:36] VITALS: BP 110/59; PULSE 89; RESP 16; TEMP 37.4; O2SAT 94
[2018-12-26 11:36] VITALS: BP 112/61; PULSE 80; RESP 16; TEMP 37.1; O2SAT 95
[2018-12-26 12:36] VITALS: BP 103/59; PULSE 70; RESP 16; TEMP 37.2; O2SAT 95
== END ==
PROVIDERS: Family Provider Internal Medicine; PCP Internal Medicine; Referring Provider Nurse Practitioner Adult Health; Visit Provider Nurse Practitioner Adult Health
DX: C92.00 Acute myeloblastic leukemia, not having achieved remission (principal)
CPT/HCPCS: 36430; 86644; 86850; 86870; 86900; 86920; 86922; J7040; P9040; A4216

== ENCOUNTER → 2019-01-01 14:48 | Outpatient (CLI) | payer OTHER, SELFPAY ==
[2018-12-19 10:16] VITALS: BMI 32.8
[2018-12-26 09:49] VITALS: BMI 32.8
[2019-01-01 15:58] LABS: Absolute Lymphocyte Count 1.18 X10^3/ul (0.83-4.51); Absolute Neutrophil Count 0.6 X10^3/uL (2.0-7.7); Differential Indicated SCAN CRITERIA MET; Hematocrit 21.4 % (40-54); Hemoglobin 7.1 g/dl (13.0-16.5); Lymphocyte # 1.18 X10^3/ul (4.0); Mean Corp Hgb Conc 33.2 g/gl (32-36); Mean Corpuscular Volume 87.3 fL (80-94); Mean Platelet Vol. 9.1 fl (6.2-12.0); Monocyte# 1.67 X10^3/uL; Monocyte% 48.1 % (0-10); Neutrophil % 17.3 % (47-70); POSITIVE COUNT NO; POSITIVE DIFFERENTIAL YES; POSITIVE MORPHOLOGY NO; Platelet Count 62 K/mm3 (150-450); RBC Distribution Width CV 15.6 % (11.6-14.6); RBC Distribution Width SD 49.7 fl (35.1-43.9); Red Blood Count 2.45 M/mm3 (4.6-6.2); White Blood Count 3.5 K/mm3 (4.4-11.0)
[2019-01-01 16:26] LABS: Differential Comment SCANNED
[2019-01-01 23:12] LABS: Xtra Tube EP Lab EXTRA TUBE
== END ==
PROVIDERS: Family Provider Internal Medicine; PCP Internal Medicine; Referring Provider Nurse Practitioner Adult Health; Visit Provider Nurse Practitioner Adult Health
DX: C92.00 Acute myeloblastic leukemia, not having achieved remission (principal)
CPT/HCPCS: 36592; 85025; 86850; 86870; 86880; 86900; 86920; 86922; A4216

== ENCOUNTER → 2019-01-02 10:36 | Outpatient (CLI) | payer OTHER, SELFPAY ==
[2018-12-26 09:49] VITALS: BMI 32.8
[2019-01-02 11:03] VITALS: BP 114/66; PULSE 78; RESP 16; TEMP 36.6; O2SAT 96; BMI 32.8
[2019-01-02 11:41] VITALS: BP 98/61; PULSE 77; RESP 16; TEMP 36.6; O2SAT 95
[2019-01-02 12:41] VITALS: BP 112/58; PULSE 73; RESP 16; TEMP 36.6; O2SAT 94
== END ==
PROVIDERS: Family Provider Internal Medicine; PCP Internal Medicine; Referring Provider Nurse Practitioner Adult Health; Visit Provider Nurse Practitioner Adult Health
DX: C92.00 Acute myeloblastic leukemia, not having achieved remission (principal)
CPT/HCPCS: 36430; 86644; 86850; 86870; 86880; 86900; 86920; 86922; J7040; P9040; A4216

== ENCOUNTER → 2019-01-07 10:56 | Outpatient (CLI) | payer OTHER, SELFPAY ==
[2018-10-08 08:56] VITALS: BMI 32.8
[2019-01-02 11:03] VITALS: BMI 32.8
--- NOTE | 2019-01-07 10:58 | ECHOCS_ITS ---
Reason For Study: ATRIAL FIB-FLUTTER Procedure This was a 2D Doppler, Color Flow transthoracic echocardiogram. Strain analysis not performed due to subotptimal images. The study was technically difficult. Exam performed in department. Left Ventricle Normal LV size. Left ventricular systolic function is normal. The estimated ejection fraction is 65 %. Stage 1 diastolic dysfunction. No regional wall motion abnormalities noted. Right Ventricle Normal RV size. Normal systolic function. Atria Normal left atrium. Normal right atrium. Mitral Valve Normal mitral valve. Tricuspid Valve Normal tricuspid valve. Aortic Valve Normal aortic valve. Trisinus/trileaflet aortic valve. Pulmonic Valve Normal pulmonic valve. Great Vessels Normal aortic root. The pulmonary artery is normal size. Normal inferior vena cava. Pericardium/Pleural No pericardial effusion. Medication Diluted definity 4ml given slow IV push to enhance endocardial definition. MMode/2D Measurements & Calculations LVIDd: 4.3 cm IVSd: 0.98 cm Ao root diam: 3.3 cm LVIDs: 2.9 cm LVPWd: 1.1 cm RVDd: 3.8 cm FS: 33.0 % LAV(MOD-bp): 47.2 ml LVAd ap4: 34.0 cm2 SV(MOD-sp4): 63.0 ml LAV(MOD-bp) Indexed: 20.4 ml/m2 EDV(MOD-sp4): 114.6 ml LAV(MOD-sp2): 51.2 ml EDV(sp4-el): 121.0 ml LAV(MOD-sp4): 41.0 ml LVAs ap4: 20.1 cm2 ESV(MOD-sp4): 51.6 ml ESV(sp4-el): 53.1 ml EF(MOD-sp4): 55.0 % EF(sp4-el): 56.1 % SV(sp4-el): 67.9 ml LA A4 area: 16.7 cm2 LA dimension(2D): 4.1 cm RA A4 area: 14.9 cm2 Time Measurements MV dec time: 0.24 sec Doppler Measurements & Calculations MV E max randall: 56.1 cm/sec Lat Peak E' Randall: 8.9 cm/sec Med Peak E' Randall: 8.7 cm/sec MV A max randall: 79.5 cm/sec E/E' lat: 6.3 E/E' med: 6.5 MV E/A: 0.71 Ao V2 max: 148.1 cm/sec LV V1 max: 118.4 cm/sec PA V2 max: 109.1 cm/sec Ao max P.8 mmHg LV V1 max P.6 mmHg TR max randall: 265.6 cm/sec TR max P.2 mmHg Interpretation Summary Normal LV size. Left ventricular systolic function is normal. The estimated ejection fraction is 65 %. Stage 1 diastolic dysfunction. Contrast injection was performed. Ordering Physician: Noe Emerson Referring Physician: EUNICE JENSEN Performed By: Beatriz Sims RDCS
== END ==
PROVIDERS: Family Provider Internal Medicine; PCP Internal Medicine; Referring Provider Internal Medicine Cardiovascular Disease; Visit Provider Internal Medicine Cardiovascular Disease
DX: I48.0 Paroxysmal atrial fibrillation (principal)
CPT/HCPCS: 93306; Q9957; A4216; C8929

== ENCOUNTER → 2019-01-08 13:49 | Outpatient (CLI) | payer OTHER, SELFPAY ==
[2018-12-19 10:16] VITALS: BMI 32.8
[2019-01-02 11:03] VITALS: BMI 32.8
[2019-01-08 14:39] LABS: AST(SGOT) 21 U/L (15-37); Absolute Lymphocyte Count 1.02 X10^3/ul (0.83-4.51); Absolute Neutrophil Count 0.8 X10^3/uL (2.0-7.7); Alanine Aminotransfer ALT/SGPT 30 U/L (16-61); Albumin, Serum 2.9 g/dL (3.2-5.0); Alkaline Phosphatase 87 U/L (45-117); Anion Gap 9 (5-15); BUN 15 mg/dL (7-18); BUN/Creat Ratio 11.2 RATIO (10-20); Basophil# 0.01 X10^3/uL; Basophil% 0.3 % (0-1); Calcium,Total 8.4 mg/dL (8.5-10.1); Chloride 100 mmol/L (98-107); Creatinine, Serum 1.34 mg/dL (0.70-1.30); EST Glomerular Filtration Rate 57 mL/min (>60); Est Glom Filt Rate - Afr Amer 69 mL/min (>60); Globulin 5.2 g/dL (2.2-4.2); Glucose 173 mg/dL (74-106); Hematocrit 21.6 % (40-54); Hemoglobin 7.1 g/dl (13.0-16.5); Lymphocyte # 1.02 X10^3/ul (4.0); Lymphocyte % 29.3 % (19-41); Mean Corp Hgb Conc 32.9 g/gl (32-36); Mean Corpuscular Hgb 28.6 pg (27.0-32.0); Mean Corpuscular Volume 87.1 fL (80-94); Mean Platelet Vol. 8.8 fl (6.2-12.0); Monocyte# 1.68 X10^3/uL; Monocyte% 48.3 % (0-10); Neutrophil # 0.77 X10^3/uL (2.7-7.7); Neutrophil % 22.1 % (47-70); Platelet Count 62 K/mm3 (150-450); Potassium 3.9 mmol/L (3.5-5.1); Protein, Total 8.1 g/dL (6.4-8.2); RBC Distribution Width CV 15.9 % (11.6-14.6); RBC Distribution Width SD 49.5 fl (35.1-43.9); Red Blood Count 2.48 M/mm3 (4.6-6.2); Sodium Level 136 mmol/L (136-145); Uric Acid 7.2 mg/dL (3.5-7.2); White Blood Count 3.5 K/mm3 (4.4-11.0)
[2019-01-08 14:40] LABS: Differential Indicated SCAN CRITERIA MET; POSITIVE COUNT NO; POSITIVE DIFFERENTIAL YES; POSITIVE MORPHOLOGY YES
[2019-01-08 15:29] LABS: Anisocytosis 1+; Platelet Estimate MKD DEC (ADEQ)
[2019-01-08 15:30] LABS: Microcytosis RARE
[2019-01-08 15:31] LABS: Hypochromasia 1+
[2019-01-08 21:58] LABS: Xtra Tube EP Lab EXTRA TUBE
[2019-01-12 09:08] LABS: Pathologist Review Reviewed
== END ==
PROVIDERS: Family Provider Internal Medicine; PCP Internal Medicine
DX: C92.00 Acute myeloblastic leukemia, not having achieved remission (principal)
CPT/HCPCS: 80048; 80076; 84550; 85025; 86850; 86870; 86880; 86900; 86920; 86922; A4216

== ENCOUNTER → 2019-01-09 10:33 | Outpatient (CLI) | payer OTHER, SELFPAY ==
[2019-01-02 11:03] VITALS: BMI 32.8
[2019-01-09 10:57] VITALS: BP 106/56; PULSE 84; RESP 16; TEMP 37.3; O2SAT 93; BMI 32.8
[2019-01-09 11:34] VITALS: BP 115/59; PULSE 81; RESP 16; TEMP 37.6; O2SAT 93
[2019-01-09 12:34] VITALS: BP 105/59; PULSE 81; RESP 16
[2019-01-09 13:31] VITALS: BP 115/65; PULSE 77; RESP 16; TEMP 37.3; O2SAT 98
[2019-01-09 13:48] VITALS: BP 115/62; PULSE 75; RESP 16; TEMP 36.6; O2SAT 94
== END ==
PROVIDERS: Family Provider Internal Medicine; PCP Internal Medicine
DX: C92.00 Acute myeloblastic leukemia, not having achieved remission (principal)
CPT/HCPCS: 36430; 86850; 86870; 86880; 86900; 86920; 86922; J7040; P9040; A4216

== ENCOUNTER → 2019-01-15 14:03 | Outpatient (CLI) | payer MEDICARE, OTHER, SELFPAY ==
[2018-12-19 10:16] VITALS: BMI 32.8
[2019-01-14 11:08] VITALS: BMI 33.2
[2019-01-15 15:03] LABS: Absolute Lymphocyte Count 0.88 X10^3/ul (0.83-4.51); Absolute Neutrophil Count 0.3 X10^3/uL (2.0-7.7); Basophil# 0.01 X10^3/uL; Basophil% 0.4 % (0-1); Eosinophil# 0.01 X10^3/uL; Eosinophils% 0.4 % (0-5); Hematocrit 25.5 % (40-54); Hemoglobin 8.2 g/dl (13.0-16.5); Lymphocyte # 0.88 X10^3/ul (4.0); Lymphocyte % 34.1 % (19-41); Mean Corp Hgb Conc 32.2 g/gl (32-36); Mean Corpuscular Hgb 28.4 pg (27.0-32.0); Mean Corpuscular Volume 88.2 fL (80-94); Mean Platelet Vol. 9.4 fl (6.2-12.0); Monocyte# 1.34 X10^3/uL; Monocyte% 51.9 % (0-10); Neutrophil # 0.33 X10^3/uL (2.7-7.7); Neutrophil % 12.8 % (47-70); Platelet Count 60 K/mm3 (150-450); RBC Distribution Width CV 16.1 % (11.6-14.6); RBC Distribution Width SD 49.1 fl (35.1-43.9); Red Blood Count 2.89 M/mm3 (4.6-6.2); White Blood Count 2.6 K/mm3 (4.4-11.0)
[2019-01-15 15:05] LABS: AST(SGOT) 19 U/L (15-37); Alanine Aminotransfer ALT/SGPT 28 U/L (16-61); Alkaline Phosphatase 88 U/L (45-117); Anion Gap 6 (5-15); BUN 14 mg/dL (7-18); BUN/Creat Ratio 11.2 RATIO (10-20); Bilirubin, Direct 0.39 mg/dL (0.00-0.30); Calcium,Total 8.3 mg/dL (8.5-10.1); Chloride 103 mmol/L (98-107); Creatinine, Serum 1.25 mg/dL (0.70-1.30); EST Glomerular Filtration Rate 62 mL/min (>60); Est Glom Filt Rate - Afr Amer 75 mL/min (>60); Globulin 5.1 g/dL (2.2-4.2); Glucose 125 mg/dL (74-106); Potassium 3.9 mmol/L (3.5-5.1); Protein, Total 8.1 g/dL (6.4-8.2); Sodium Level 138 mmol/L (136-145)
[2019-01-15 15:14] LABS: Differential Indicated SCAN CRITERIA MET; POSITIVE COUNT NO; POSITIVE DIFFERENTIAL YES; POSITIVE MORPHOLOGY YES
[2019-01-15 15:15] LABS: Anisocytosis 1+; Platelet Estimate MKD DEC (ADEQ); Red Cell Morphology N CHROM NORMAL (NORM C&C)
--- NOTE | 2019-01-15 15:20 | ED.RN ---
Pt had PICC line pulled prior to this visit; lab called for blood draw.
[2019-01-15 22:36] LABS: Xtra Tube EP Lab EXTRA TUBE
[2019-01-15 22:38] LABS: Xtra Tube EP Lab EXTRA TUBE
[2019-01-19 09:39] LABS: Pathologist Review Reviewed
== END ==
PROVIDERS: Family Provider Internal Medicine; PCP Internal Medicine
DX: C92.00 Acute myeloblastic leukemia, not having achieved remission (principal)
CPT/HCPCS: 36415; 80048; 80076; 85025

== ENCOUNTER → 2019-01-23 10:18 | Outpatient (CLI) | payer MEDICARE, OTHER, SELFPAY ==
[2019-01-14 11:08] VITALS: BMI 33.2
[2019-01-23 10:41] VITALS: BP 111/67; PULSE 77; RESP 16; TEMP 37.1; O2SAT 98; BMI 36.8
[2019-01-23 11:04] VITALS: BP 136/67; PULSE 97; RESP 16; TEMP 37.1; O2SAT 94
[2019-01-23 12:04] VITALS: BP 108/67; PULSE 73; RESP 15; TEMP 37.1; O2SAT 94
[2019-01-23 13:04] VITALS: BP 99/57; PULSE 71; RESP 16; TEMP 36.8; O2SAT 98
== END ==
PROVIDERS: Family Provider Internal Medicine; PCP Internal Medicine; Referring Provider Nurse Practitioner Adult Health; Visit Provider Nurse Practitioner Adult Health
DX: C92.00 Acute myeloblastic leukemia, not having achieved remission (principal)
CPT/HCPCS: 36430; 86644; 86850; 86870; 86900; 86902; 86920; 86922; J7040; P9040; A4216

== ENCOUNTER → 2019-01-30 10:33 | Outpatient (CLI) | payer MEDICARE, OTHER, SELFPAY ==
[2019-01-23 10:41] VITALS: BMI 36.8
[2019-01-30 10:41] VITALS: BP 129/67; PULSE 81; RESP 16; TEMP 36.6; O2SAT 95; BMI 34.7
[2019-01-30 11:17] VITALS: BP 111/59; PULSE 81; RESP 16; TEMP 36.6; O2SAT 96
[2019-01-30 12:17] VITALS: BP 121/65; PULSE 73; RESP 16; TEMP 36.5; O2SAT 97
[2019-01-30 13:15] VITALS: BP 118/55; PULSE 81; RESP 16; TEMP 36.5; O2SAT 96
== END ==
PROVIDERS: Family Provider Internal Medicine; PCP Internal Medicine; Referring Provider Nurse Practitioner Adult Health; Visit Provider Nurse Practitioner Adult Health
DX: C92.00 Acute myeloblastic leukemia, not having achieved remission (principal)
CPT/HCPCS: 36430; 86644; 86850; 86870; 86900; 86902; 86920; 86922; J7040; P9040; A4216

== ENCOUNTER → 2019-02-05 13:33 | Outpatient (CLI) | payer MEDICARE, OTHER, SELFPAY ==
[2019-01-30 10:41] VITALS: BMI 34.7
[2019-02-05 14:15] VITALS: BP 133/70; PULSE 90; RESP 16; TEMP 36.7; O2SAT 98; BMI 34.7
[2019-02-05 14:48] VITALS: BP 113/66; PULSE 76; RESP 16; TEMP 36.7; O2SAT 98
[2019-02-05 15:48] VITALS: BP 116/70; PULSE 75; RESP 16; TEMP 36.6
[2019-02-05 16:36] VITALS: BP 103/62; PULSE 73; RESP 16; TEMP 36.8
== END ==
PROVIDERS: Family Provider Internal Medicine; PCP Internal Medicine; Referring Provider Nurse Practitioner Adult Health; Visit Provider Nurse Practitioner Adult Health
DX: C92.00 Acute myeloblastic leukemia, not having achieved remission (principal)
CPT/HCPCS: 36430; 86644; 86850; 86870; 86900; 86920; 86922; J7040; P9040; A4216

== ENCOUNTER → 2019-02-26 12:56 | Outpatient (CLI) | payer MEDICARE, OTHER, SELFPAY ==
[2019-02-05 14:15] VITALS: BMI 34.7
[2019-02-26 13:40] LABS: Absolute Lymphocyte Count 0.65 X10^3/uL (0.83-4.51); Absolute Neutrophil Count 0.2 X10^3/uL (2.0-7.7); Eosinophil# 0.01 X10^3/uL; Hematocrit 25.1 % (40-54); Hemoglobin 8.3 g/dL (13.0-16.5); Lymphocyte # 0.65 X10^3/ul (4.0); Mean Corp Hgb Conc 33.1 g/dL (32-36); Mean Corpuscular Volume 90.6 fL (80-94); Mean Platelet Vol. 9.5 fl (6.2-12.0); Monocyte# 0.15 X10^3/uL; NRBC Flagged by Analyzer 0 % (0-5); Neutrophil # 0.19 X10^3/uL (2.7-7.7); POSITIVE COUNT YES; POSITIVE DIFFERENTIAL YES; POSITIVE MORPHOLOGY YES; RBC Distribution Width CV 14.9 % (11.6-14.6); RBC Distribution Width SD 45.6 fl (35.1-43.9); Red Blood Count 2.77 M/mm3 (4.6-6.2)
[2019-02-26 13:57] LABS: AST(SGOT) 24 U/L (15-37); Alanine Aminotransfer ALT/SGPT 30 U/L (16-61); Alkaline Phosphatase 74 U/L (45-117); Anion Gap 4 (5-15); BUN 16 mg/dL (7-18); BUN/Creat Ratio 15.2 RATIO (10-20); Bilirubin, Direct 0.29 mg/dL (0.00-0.30); Calcium,Total 8.2 mg/dL (8.5-10.1); Chloride 99 mmol/L (98-107); Creatinine, Serum 1.05 mg/dL (0.70-1.30); EST Glomerular Filtration Rate 75 mL/min (>60); Est Glom Filt Rate - Afr Amer 91 mL/min (>60); Globulin 4.2 g/dL (2.2-4.2); Glucose 103 mg/dL (74-106); Potassium 3.6 mmol/L (3.5-5.1); Protein, Total 7.2 g/dL (6.4-8.2); Sodium Level 140 mmol/L (136-145)
[2019-02-26 14:04] LABS: Platelet Count 23 K/mm3 (150-450)
[2019-02-26 14:07] LABS: Differential Comment SCANNED; Platelet Estimate MKD DEC (ADEQ)
[2019-02-26 21:37] LABS: Xtra Tube EP Lab EXTRA TUBE
[2019-02-27 09:39] LABS: Pathologist Review Reviewed
== END ==
PROVIDERS: Family Provider Internal Medicine; PCP Internal Medicine; Referring Provider Nurse Practitioner Adult Health; Visit Provider Nurse Practitioner Adult Health
DX: Z45.2 Encounter for adjustment and management of vascular access device (principal); C92.00 Acute myeloblastic leukemia, not having achieved remission
CPT/HCPCS: 36592; 80048; 80076; 85025; A4216

== ENCOUNTER → 2019-03-03 13:00 | Outpatient (CLI) | payer MEDICARE, OTHER, SELFPAY ==
[2019-02-05 14:15] VITALS: BMI 34.7
[2019-03-03 13:56] LABS: Eosinophil# 0.01 X10^3/uL; Eosinophils% 1.4 % (0-5); Hematocrit 21.6 % (40-54); Hemoglobin 7.3 g/dL (13.0-16.5); Lymphocyte # 0.52 X10^3/ul (4.0); Lymphocyte % 71.2 % (19-41); Mean Corp Hgb Conc 33.8 g/dL (32-36); Mean Corpuscular Hgb 30.4 pg (27.0-32.0); Mean Platelet Vol. 10.5 fl (6.2-12.0); Monocyte# 0.12 X10^3/uL; Monocyte% 16.4 % (0-10); NRBC Flagged by Analyzer 0 % (0-5); Neutrophil # 0.08 X10^3/uL (2.7-7.7); POSITIVE COUNT YES; POSITIVE DIFFERENTIAL YES; POSITIVE MORPHOLOGY YES; Platelet Count 2 K/mm3 (150-450); RBC Distribution Width CV 14.6 % (11.6-14.6); RBC Distribution Width SD 45.1 fl (35.1-43.9); White Blood Count 0.7 K/mm3 (4.4-11.0)
[2019-03-03 14:02] LABS: AST(SGOT) 29 U/L (15-37); Alanine Aminotransfer ALT/SGPT 38 U/L (16-61); Albumin, Serum 3.2 g/dL (3.2-5.0); Alkaline Phosphatase 76 U/L (45-117); Anion Gap 5 (5-15); BUN 14 mg/dL (7-18); Calcium,Total 8.6 mg/dL (8.5-10.1); Chloride 101 mmol/L (98-107); Creatinine, Serum 1.08 mg/dL (0.70-1.30); EST Glomerular Filtration Rate 73 mL/min (>60); Est Glom Filt Rate - Afr Amer 88 mL/min (>60); Globulin 4.2 g/dL (2.2-4.2); Glucose 112 mg/dL (74-106); Potassium 4.4 mmol/L (3.5-5.1); Protein, Total 7.4 g/dL (6.4-8.2); Sodium Level 137 mmol/L (136-145)
[2019-03-03 14:42] LABS: Anisocytosis 2+; Platelet Estimate MKD DEC (ADEQ)
[2019-03-03 14:44] LABS: Differential Indicated SCAN CRITERIA MET
[2019-03-03 21:44] LABS: Xtra Tube EP Lab EXTRA TUBE
[2019-03-04 09:44] LABS: Pathologist Review Reviewed
== END ==
PROVIDERS: Family Provider Internal Medicine; PCP Internal Medicine; Referring Provider Nurse Practitioner Adult Health; Visit Provider Nurse Practitioner Adult Health
DX: C92.00 Acute myeloblastic leukemia, not having achieved remission (principal)
CPT/HCPCS: 36592; 80048; 80076; 85025; 86850; 86870; 86880; 86900; 86920; 86922; A4216

== ENCOUNTER → 2019-03-04 10:33 | Outpatient (CLI) | payer MEDICARE, OTHER, SELFPAY ==
[2019-02-05 14:15] VITALS: BMI 34.7
[2019-03-04 10:44] VITALS: BP 128/72; PULSE 83; RESP 15; TEMP 36.8; O2SAT 99; BMI 34.9
[2019-03-04] MEDS: DiphenhydrAMINE 25 MG Capsule PO (10:56)
[2019-03-04] MEDS: Acetaminophen 325 MG Tablet 650 MG PO (10:56)
[2019-03-04 11:31] VITALS: BP 101/57; PULSE 72; RESP 15; TEMP 37.1; O2SAT 96
[2019-03-04 11:59] VITALS: BP 100/55; PULSE 69; RESP 15; TEMP 36.8; O2SAT 96
[2019-03-04 12:28] VITALS: BP 106/58; PULSE 77; RESP 15; TEMP 37; O2SAT 96
[2019-03-04 13:28] VITALS: BP 95/57; PULSE 84; RESP 18; TEMP 36.4; O2SAT 95
[2019-03-04 14:17] VITALS: BP 100/56; PULSE 80; RESP 15; TEMP 37; O2SAT 95
== END ==
PROVIDERS: Family Provider Internal Medicine; PCP Internal Medicine; Referring Provider Nurse Practitioner Adult Health; Visit Provider Nurse Practitioner Adult Health
DX: C92.00 Acute myeloblastic leukemia, not having achieved remission (principal)
CPT/HCPCS: 36430; 86644; 86850; 86870; 86880; 86900; 86902; 86920; 86922; 86965; J7040; P9037; P9040; A4216

== ENCOUNTER → 2019-03-05 12:54 | Outpatient (CLI) | payer MEDICARE, OTHER, SELFPAY ==
[2019-02-05 14:15] VITALS: BMI 34.7
[2019-03-04 10:44] VITALS: BMI 34.9
[2019-03-05 13:21] LABS: Absolute Lymphocyte Count 0.56 X10^3/uL (0.83-4.51); Hematocrit 21.5 % (40-54); Hemoglobin 7.4 g/dL (13.0-16.5); Lymphocyte # 0.56 X10^3/ul (4.0); Lymphocyte % 83.6 % (19-41); Mean Corp Hgb Conc 34.4 g/dL (32-36); Mean Corpuscular Hgb 30.5 pg (27.0-32.0); Mean Corpuscular Volume 88.5 fL (80-94); Mean Platelet Vol. 8.7 fl (6.2-12.0); Monocyte# 0.07 X10^3/uL; Monocyte% 10.4 % (0-10); NRBC Flagged by Analyzer 0 % (0-5); Neutrophil # 0.04 X10^3/uL (2.7-7.7); POSITIVE COUNT YES; POSITIVE DIFFERENTIAL YES; POSITIVE MORPHOLOGY YES; RBC Distribution Width CV 14.6 % (11.6-14.6); RBC Distribution Width SD 43.7 fl (35.1-43.9); Red Blood Count 2.43 M/mm3 (4.6-6.2)
[2019-03-05 13:33] LABS: Platelet Count 19 K/mm3 (150-450); White Blood Count 0.7 K/mm3 (4.4-11.0)
[2019-03-05 13:34] LABS: Differential Indicated SCAN CRITERIA MET
[2019-03-05 21:16] LABS: Xtra Tube EP Lab EXTRA TUBE
[2019-03-06 10:32] LABS: Pathologist Review Reviewed
== END ==
PROVIDERS: Family Provider Internal Medicine; PCP Internal Medicine; Referring Provider Nurse Practitioner Adult Health; Visit Provider Nurse Practitioner Adult Health
DX: Z45.2 Encounter for adjustment and management of vascular access device (principal); C92.00 Acute myeloblastic leukemia, not having achieved remission; E11.9 Type 2 diabetes mellitus without complications
CPT/HCPCS: 36415; 36592; 85025; 86850; 86870; 86880; 86900; 86920; 86922; A4216

== ENCOUNTER → 2019-03-06 09:01 | Outpatient (CLI) | payer MEDICARE, OTHER, SELFPAY ==
[2019-03-04 10:44] VITALS: BMI 34.9
[2019-03-06 09:10] VITALS: BP 138/77; PULSE 98; RESP 16; TEMP 37.1; O2SAT 96; BMI 34.9
[2019-03-06] MEDS: DiphenhydrAMINE 25 MG Capsule PO (09:22)
[2019-03-06] MEDS: Acetaminophen 325 MG Tablet 650 MG PO (09:22)
[2019-03-06 09:46] VITALS: BP 102/59; PULSE 82; RESP 15; TEMP 37.3; O2SAT 98
[2019-03-06 10:12] VITALS: BP 114/64; PULSE 77; RESP 16; TEMP 36.6; O2SAT 98
[2019-03-06 10:44] VITALS: BP 115/61; PULSE 78; RESP 15; TEMP 36.9; O2SAT 98
[2019-03-06 11:47] VITALS: BP 110/68; PULSE 71; RESP 16; TEMP 36.8; O2SAT 99
== END ==
PROVIDERS: Family Provider Internal Medicine; PCP Internal Medicine; Referring Provider Nurse Practitioner Adult Health; Visit Provider Nurse Practitioner Adult Health
DX: C92.00 Acute myeloblastic leukemia, not having achieved remission (principal)
CPT/HCPCS: 36430; 86644; 86850; 86870; 86880; 86900; 86920; 86922; 86965; J7040; P9037; P9040; A4216

== ENCOUNTER → 2019-03-11 08:07 | Outpatient (CLI) | payer MEDICARE, OTHER, SELFPAY ==
[2019-03-06 09:10] VITALS: BMI 34.9
[2019-03-11 08:35] VITALS: BP 115/60; PULSE 78; RESP 18; TEMP 36.7; O2SAT 98; BMI 34.8
[2019-03-11 08:52] LABS: Absolute Lymphocyte Count 0.54 X10^3/uL (0.83-4.51); Hematocrit 20.5 % (40-54); Hemoglobin 6.9 g/dL (13.0-16.5); Lymphocyte # 0.54 X10^3/ul (4.0); Lymphocyte % 79.4 % (19-41); Mean Corp Hgb Conc 33.7 g/dL (32-36); Mean Corpuscular Hgb 30.1 pg (27.0-32.0); Mean Corpuscular Volume 89.5 fL (80-94); Mean Platelet Vol. 9.3 fl (6.2-12.0); Monocyte# 0.12 X10^3/uL; Monocyte% 17.6 % (0-10); NRBC Flagged by Analyzer 0 % (0-5); Neutrophil # 0.02 X10^3/uL (2.7-7.7); POSITIVE COUNT YES; POSITIVE DIFFERENTIAL YES; POSITIVE MORPHOLOGY YES; Platelet Count 21 K/mm3 (150-450); RBC Distribution Width CV 14.1 % (11.6-14.6); RBC Distribution Width SD 44.2 fl (35.1-43.9); Red Blood Count 2.29 M/mm3 (4.6-6.2)
[2019-03-11 08:54] LABS: Differential Indicated SCAN CRITERIA MET
[2019-03-11 09:32] LABS: White Blood Count 0.7 K/mm3 (4.4-11.0)
[2019-03-11 09:38] LABS: Platelet Estimate MKD DEC (ADEQ); Red Cell Morphology NORM C+C NORMAL (NORM C&C)
[2019-03-11] MEDS: DiphenhydrAMINE 25 MG Capsule PO (11:14)
[2019-03-11] MEDS: Acetaminophen 325 MG Tablet 650 MG PO (11:14)
[2019-03-11 11:17] VITALS: BP 107/60; PULSE 81; RESP 16; TEMP 36.8
[2019-03-11 11:38] VITALS: BP 110/53; PULSE 74; RESP 16; TEMP 36.4; O2SAT 95
[2019-03-11 12:38] VITALS: BP 112/61; PULSE 97; RESP 18; TEMP 36.6; O2SAT 95
[2019-03-11 13:38] VITALS: BP 114/54; PULSE 75; RESP 16; TEMP 36.8
[2019-03-11 16:39] LABS: Xtra Tube EP Lab EXTRA TUBE
[2019-03-13 13:40] LABS: Pathologist Review Reviewed
== END ==
PROVIDERS: Family Provider Internal Medicine; PCP Internal Medicine; Referring Provider Nurse Practitioner Adult Health; Visit Provider Nurse Practitioner Adult Health
DX: C92.00 Acute myeloblastic leukemia, not having achieved remission (principal)
CPT/HCPCS: 36430; 85025; 86644; 86850; 86880; 86900; 86902; 86920; 86922; J7040; P9040; A4216

== ENCOUNTER → 2019-03-12 14:03 | Outpatient (CLI) | payer MEDICARE, OTHER, SELFPAY ==
[2019-03-06 09:10] VITALS: BMI 34.9
[2019-03-11 08:35] VITALS: BMI 34.8
[2019-03-12 14:26] LABS: Absolute Lymphocyte Count 0.61 X10^3/uL (0.83-4.51); Hematocrit 21.6 % (40-54); Hemoglobin 7.4 g/dL (13.0-16.5); Lymphocyte # 0.61 X10^3/ul (4.0); Lymphocyte % 83.6 % (19-41); Mean Corp Hgb Conc 34.3 g/dL (32-36); Mean Corpuscular Hgb 30.1 pg (27.0-32.0); Mean Corpuscular Volume 87.8 fL (80-94); Mean Platelet Vol. 9.9 fl (6.2-12.0); Monocyte% 13.7 % (0-10); NRBC Flagged by Analyzer 0 % (0-5); Neutrophil # 0.02 X10^3/uL (2.7-7.7); Neutrophil % 2.7 % (47-70); POSITIVE COUNT YES; POSITIVE DIFFERENTIAL YES; POSITIVE MORPHOLOGY YES; RBC Distribution Width CV 14.2 % (11.6-14.6); Red Blood Count 2.46 M/mm3 (4.6-6.2)
[2019-03-12 14:36] LABS: Platelet Count 21 K/mm3 (150-450); White Blood Count 0.7 K/mm3 (4.4-11.0)
[2019-03-12 15:09] LABS: Differential Comment SCANNED; Platelet Estimate MKD DEC (ADEQ)
[2019-03-12 22:21] LABS: Xtra Tube EP Lab EXTRA TUBE
[2019-03-13 13:55] LABS: Pathologist Review Reviewed
== END ==
PROVIDERS: Family Provider Internal Medicine; PCP Internal Medicine; Referring Provider Nurse Practitioner Adult Health; Visit Provider Nurse Practitioner Adult Health
DX: Z45.2 Encounter for adjustment and management of vascular access device (principal); C92.00 Acute myeloblastic leukemia, not having achieved remission
CPT/HCPCS: 36591; 85025; 86850; 86870; 86880; 86900; 86920; 86922; A4216

== ENCOUNTER → 2019-03-13 11:03 | Outpatient (CLI) | payer MEDICARE, OTHER, SELFPAY ==
[2019-03-11 08:35] VITALS: BMI 34.8
[2019-03-13] MEDS: Acetaminophen 325 MG Tablet 650 MG PO (11:40)
[2019-03-13] MEDS: DiphenhydrAMINE 25 MG Capsule PO (11:40)
[2019-03-13 11:44] VITALS: BP 137/69; PULSE 82; RESP 16; TEMP 37.5; O2SAT 98; BMI 34.8
[2019-03-13 12:09] VITALS: BP 109/67; PULSE 85; RESP 16; TEMP 37.4; O2SAT 99
[2019-03-13 13:09] VITALS: BP 108/57; PULSE 82; RESP 16; TEMP 37.7; O2SAT 96
[2019-03-13 14:00] VITALS: BP 105/57; PULSE 80; RESP 16; TEMP 37.3; O2SAT 97
== END ==
PROVIDERS: Family Provider Internal Medicine; PCP Internal Medicine
DX: C92.00 Acute myeloblastic leukemia, not having achieved remission (principal)
CPT/HCPCS: 36430; 86850; 86870; 86880; 86900; 86920; 86922; J7040; P9040; A4216

== ENCOUNTER → 2019-03-16 12:03 | Outpatient (CLI) | payer MEDICARE, OTHER, SELFPAY ==
[2019-03-06 09:10] VITALS: BMI 34.9
[2019-03-13 11:44] VITALS: BMI 34.8
[2019-03-16 13:13] LABS: Absolute Lymphocyte Count 0.36 X10^3/uL (0.83-4.51); Hemoglobin 7.8 g/dL (13.0-16.5); Lymphocyte # 0.36 X10^3/ul (4.0); Lymphocyte % 73.5 % (19-41); Mean Corp Hgb Conc 33.9 g/dL (32-36); Mean Corpuscular Volume 88.5 fL (80-94); Mean Platelet Vol. 10.4 fl (6.2-12.0); Monocyte# 0.11 X10^3/uL; Monocyte% 22.4 % (0-10); NRBC Flagged by Analyzer 0 % (0-5); Neutrophil # 0.02 X10^3/uL (2.7-7.7); Neutrophil % 4.1 % (47-70); POSITIVE COUNT YES; POSITIVE DIFFERENTIAL YES; POSITIVE MORPHOLOGY YES; Platelet Count 41 K/mm3 (150-450); RBC Distribution Width CV 13.3 % (11.6-14.6); RBC Distribution Width SD 41.9 fl (35.1-43.9); White Blood Count 0.5 K/mm3 (4.4-11.0)
[2019-03-16 13:24] LABS: Differential Indicated SCAN CRITERIA MET
[2019-03-16 13:51] LABS: Differential Comment SCANNED
[2019-03-16 21:08] LABS: Xtra Tube EP Lab EXTRA TUBE
[2019-03-17 13:36] LABS: Pathologist Review Reviewed
== END ==
PROVIDERS: Nurse Practitioner Adult Health; Family Provider Internal Medicine; PCP Internal Medicine; Referring Provider Nurse Practitioner Adult Health; Visit Provider Nurse Practitioner Adult Health
DX: Z45.2 Encounter for adjustment and management of vascular access device (principal); C92.00 Acute myeloblastic leukemia, not having achieved remission
CPT/HCPCS: 36591; 85025; 86850; 86900; 86920; 86922; A4216

== ENCOUNTER → 2019-03-17 09:40 | Outpatient (CLI) | payer MEDICARE, OTHER, SELFPAY ==
[2019-03-13 11:44] VITALS: BMI 34.8
[2019-03-17 09:54] VITALS: BP 121/69; PULSE 84; RESP 18; TEMP 36.7; O2SAT 86; BMI 34.8
[2019-03-17] MEDS: Acetaminophen 325 MG Tablet 650 MG PO (10:02)
[2019-03-17] MEDS: DiphenhydrAMINE 25 MG Capsule PO (10:02)
[2019-03-17 10:30] VITALS: BP 111/66; PULSE 81; RESP 15; TEMP 37.1; O2SAT 96
[2019-03-17 11:30] VITALS: BP 161/66; PULSE 74; RESP 16; TEMP 36.8; O2SAT 94
== END ==
PROVIDERS: Family Provider Internal Medicine; PCP Internal Medicine; Referring Provider Nurse Practitioner Adult Health; Visit Provider Nurse Practitioner Adult Health
DX: C92.00 Acute myeloblastic leukemia, not having achieved remission (principal)
CPT/HCPCS: 36430; 86644; 86850; 86900; 86902; 86920; 86922; P9040; A4216